=== PATIENT | male | born 1995 | race Caucasian/White ===

== ENCOUNTER → 2018-03-23 | Outpatient (CLI) | payer MEDICAID, OTHER ==
[2018-03-23 20:58] LABS: BASO % 0.6 % (0.0-1.0); EOS # 0.3 10^3/uL (0.0-0.50); HEMATOCRIT 42.8 % (42.0-52.0); HEMOGLOBIN 14.6 g/dl (13.5-17.5); IMMATURE GRANULOCYTE % 0.3 % (0-3.0); LYMPH # 1.8 10^3/uL (1.5-6.5); LYMPH % 25.7 % (24.0-44.0); MEAN CORPUSCULAR HEMOGLOBIN 30.7 pg (27.0-33.0); MEAN CORPUSCULAR HGB CONC 34.1 g/dl (32.0-36.5); MEAN CORPUSCULAR VOLUME 89.9 fl (80.0-96.0); MONO # 0.6 10^3/uL (0.0-0.8); NEUTROPHILS # 4.3 10^3/uL (1.8-7.7); NEUTROPHILS % 61.4 % (36.0-66.0); PLATELET COUNT, AUTOMATED 157 10^3/uL (150-450); RED BLOOD COUNT 4.76 10^6/uL (4.30-6.10); RED CELL DISTRIBUTION WIDTH 13.1 % (11.5-14.5)
[2018-03-23 21:05] LABS: ALBUMIN/GLOBULIN RATIO 1.25 (1.00-1.93); ALKALINE PHOSPHATASE 96 U/L (45-117); ALT/SGPT 28 U/L (12-78); ANION GAP 4 MEQ/L (8-16); AST/SGOT 22 U/L (7-37); BILIRUBIN,TOTAL 0.3 MG/DL (0.2-1.0); BLOOD UREA NITROGEN 16 MG/DL (7-18); CALCIUM LEVEL 8.7 MG/DL (8.5-10.1); CARBON DIOXIDE LEVEL 30 MEQ/L (21-32); CHLORIDE LEVEL 108 MEQ/L (98-107); CREATININE FOR GFR 1.04 MG/DL (0.70-1.30); GLOMERULAR FILTRATION RATE > 60.0 (>60); GLUCOSE, FASTING 86 MG/DL (70-100); POTASSIUM SERUM 4.6 MEQ/L (3.5-5.1); SODIUM LEVEL 142 MEQ/L (136-145); TOTAL PROTEIN 7.2 GM/DL (6.4-8.2)
== END ==
LOC: M RAD 17:37
DX: M25.551 Pain in right hip (principal); R10.11 Right upper quadrant pain
CPT/HCPCS: 73502

== ENCOUNTER → 2018-03-30 | Outpatient (CLI) | payer OTHER, MEDICAID | LOC: M RAD 08:23 | DX: R10.11 Right upper quadrant pain (principal) | CPT/HCPCS: 76705 ==

== ENCOUNTER → 2018-08-19 | Outpatient (REF) | payer OTHER ==
[~2018-08-19] MED LIST: ZOLO50TA PO
[2018-08-19 16:04] LABS: HEMOGLOBIN 15.8 g/dl (13.5-17.5); MEAN CORPUSCULAR HEMOGLOBIN 30.6 pg (27.0-33.0); MEAN CORPUSCULAR HGB CONC 35.1 g/dl (32.0-36.5); PLATELET COUNT, AUTOMATED 190 10^3/uL (150-450); RED BLOOD COUNT 5.17 10^6/uL (4.30-6.10); WHITE BLOOD COUNT 6.7 10^3/uL (4.0-10.0)
[2018-08-19 16:16] LABS: CHOLESTEROL RISK RATIO 3.272 (<5); THYROID STIMULATING HORMONE 1.28 uIU/ML (0.358-3.740); TOTAL 25(OH) VITAMIN D 17.4 NG/ML (30.0-100.0)
== END ==
LOC: M SFHCPLAZ 13:58
PROVIDERS: ATTEND Nurse Practitioner Family
DX: F41.8 Other specified anxiety disorders (principal); Z13.220 Encounter for screening for lipoid disorders

== ENCOUNTER 2018-11-19 08:52 | Emergency (ER) | payer OTHER ==
[~2018-11-19] VITALS: Ht 170.2 cm; Wt 63.6 kg
[2018-11-19 08:52] VITALS: BP 142/88
[2018-11-19] MEDS ORDERED: BUPR1TAB56 (08:59)
[2018-11-19] MEDS ORDERED: MIRT1TAB17 (08:59)
[2018-11-19] MEDS ORDERED: KETOROLAC 30 MG/ML VIAL (J1885) IM ONE (09:30)
[2018-11-19] MEDS ORDERED: KETOROLAC 60 MG/2 ML VIAL (J1885) IM ONE (09:30)
[2018-11-19] MEDS ORDERED: ACETAMINOPHEN 500 MG TAB PO ONE (09:30)
[2018-11-19] MEDS ORDERED: AUGM875T28 PO (09:39)
[2018-11-19] MEDS ORDERED: MAGICMW SSP (09:39)
[2018-11-19] MEDS ORDERED: KETO10TAB PO (09:39)
== END 2018-11-19 09:52 | disposition home or self-care (01) ==
LOC: M ED 08:52
DX: K02.9 Dental caries, unspecified (principal); K08.89 Other specified disorders of teeth and supporting structures; F17.210 Nicotine dependence, cigarettes, uncomplicated; Z79.899 Other long term (current) drug therapy
CPT/HCPCS: 96372; 99283; J1885

== ENCOUNTER 2019-05-05 21:25 | Emergency (ER) | payer OTHER ==
[~2019-05-05] VITALS: Ht 170.2 cm; Wt 72.7 kg
[~2019-05-05 21:25] MED LIST changes: +AUGM875T28 PO; +BUPR1TAB56; +KETO10TAB PO; +MAGICMW SSP; +MIRT1TAB17
--- NOTE | 2019-05-05 22:58 | REPVR ---
PROCEDURE INFORMATION: Exam: US Scrotum Exam date and time: 05/05/2019 10:50 PM Clinical history: 23 years old, male; Scrotum pain; Additional info: Pain in left groin with no injury TECHNIQUE: Imaging protocol: Real-time ultrasound of the scrotum and contents with color Doppler and image documentation. COMPARISON: No relevant prior studies available. FINDINGS: Right Testicle: Normal. Measures 4 x 1.6 x 2.6 cm No mass. No torsion. Normal vascular flow. Resistive index 0.54 Left Testicle: Normal. Measures 4.5 x 2.5 x 3.2 cm No mass. No torsion. Normal vascular flow. Resistive index 0.47. Epididymides: Normal. Scrotum: Normal. IMPRESSION: Normal scrotal ultrasound. Electronically signed by: Richie Watts On 05/05/2019 22:57:30 PM
[2019-05-05] MEDS ORDERED: IBUP80TA PO (23:25)
[2019-05-05] MEDS ORDERED: LEVA1TAB2 PO (23:25)
[2019-05-05] MEDS ORDERED: cefTRIAXone SOD 250 MG VIAL (J0696) IM ONE (23:30)
[2019-05-05] MEDS ORDERED: LIDOCAINE 1% SDV 5 ML VIAL DILUENT ONE (23:30)
[2019-05-05] MEDS ORDERED: IBUPROFEN 800 MG TAB PO ONE (23:30)
[2019-05-05] MEDS ORDERED: LevoFLOXacin 500 MG TABLET PO ONE (23:30)
[2019-05-05 23:48] VITALS: BP 109/69
[2019-05-06 00:03] LABS: CHLAMYDIA DNA AMPLIFICATION NEGATIVE (NEGATIVE); GC DNA AMPLIFICATION NEGATIVE (NEGATIVE)
== END 2019-05-05 23:50 | disposition home or self-care (01) ==
LOC: M ED 21:25
DX: N45.1 Epididymitis (principal); M54.9 Dorsalgia, unspecified; F17.210 Nicotine dependence, cigarettes, uncomplicated; Z79.899 Other long term (current) drug therapy
CPT/HCPCS: 76870; 81001; 87491; 87591; 93976; 96372; 99283; J0696

== ENCOUNTER 2020-03-31 15:59 | Emergency (ER) | payer OTHER ==
[~2020-03-31] VITALS: Ht 170.2 cm; Wt 85.5 kg
[~2020-03-31 15:59] MED LIST changes: +IBUP80TA PO; +LEVA1TAB2 PO
[2020-03-31] MEDS ORDERED: NAPR-837 PO (17:09)
[2020-03-31] MEDS ORDERED: ASPE4PAD TOP (17:09)
[2020-03-31] MEDS ORDERED: ROBA750T4 PO (17:09)
[2020-03-31 17:14] VITALS: BP 127/82
[2020-03-31] MEDS ORDERED: LIDOCAINE 5% (LIDODERM) PATCH TD ONE (17:15)
[2020-03-31] MEDS ORDERED: methocarbamoL 750 MG TAB PO ONE (17:15)
[2020-03-31] MEDS ORDERED: KETOROLAC 60MG 2ML VIAL IM ONE (17:30)
[2020-03-31] MEDS ORDERED: **NOTE PATIENT COMMENT** MISC XX SCH (21:00)
== END 2020-03-31 17:55 | disposition home or self-care (01) ==
LOC: M ED 15:59
DX: S39.012A Strain of muscle, fascia and tendon of lower back, initial encounter (principal); X50.0XXA Overexertion from strenuous movement or load, initial encounter; Y92.9 Unspecified place or not applicable; Y93.89 Activity, other specified; Y99.9 Unspecified external cause status
CPT/HCPCS: 96372; 99283; J1885

== ENCOUNTER 2020-06-02 00:01 | Inpatient (IN) | payer MEDICAID, OTHER ==
[~2020-06-02] VITALS: Ht 170.2 cm; Wt 86.4 kg
[~2020-06-02 00:01] MED LIST changes: +ASPE4PAD TOP; +NAPR-837 PO; +ROBA750T4 PO
[2020-06-02 01:02] LABS: AMPHETAMINES LEVEL URINE NEGATIVE (NEGATIVE); BARBITURATES URINE NEGATIVE (NEGATIVE); BENZODIAZEPINES URINE NEGATIVE (NEGATIVE); CANNABINOIDS URINE POSITIVE (NEGATIVE); COCAINE METABOLITE URINE NEGATIVE (NEGATIVE); METHADONE URINE NEGATIVE (NEGATIVE); OPIATES URINE NEGATIVE (NEGATIVE); PHENCYCLIDINE URINE NEGATIVE (NEGATIVE)
[2020-06-02 01:12] LABS: ACETAMINOPHEN LEVEL < 2.0 UG/ML (10.0-30.0); ALT/SGPT 22 U/L (12-78); BILIRUBIN,DIRECT 0.1 MG/DL (0.0-0.2); BILIRUBIN,TOTAL 0.5 MG/DL (0.2-1.0); BLOOD UREA NITROGEN 21 MG/DL (7-18); CALCIUM LEVEL 9.3 MG/DL (8.5-10.1); CARBON DIOXIDE LEVEL 24 MEQ/L (21-32); CHLORIDE LEVEL 107 MEQ/L (98-107); CREATININE FOR GFR 0.97 MG/DL (0.70-1.30); ETHYL ALCOHOL (ETHANOL) < 0.003 % (0.000-0.010); GLOMERULAR FILTRATION RATE > 60.0 (>60); GLUCOSE, FASTING 90 MG/DL (70-100); POTASSIUM SERUM 3.7 MEQ/L (3.5-5.1); SALICYLATE LEVEL < 1.7 MG/DL (5.0-30.0); SODIUM LEVEL 139 MEQ/L (136-145); TOTAL PROTEIN 8.6 GM/DL (6.4-8.2)
[2020-06-02 01:35] LABS: HEMATOCRIT 47.5 % (42.0-52.0); HEMOGLOBIN 16.1 g/dl (13.5-17.5); MEAN CORPUSCULAR HEMOGLOBIN 29.5 pg (27.0-33.0); MEAN CORPUSCULAR HGB CONC 33.9 g/dl (32.0-36.5); PLATELET COUNT, AUTOMATED 209 10^3/uL (150-450); RED BLOOD COUNT 5.46 10^6/uL (4.30-6.10); WHITE BLOOD COUNT 10.4 10^3/uL (4.0-10.0)
--- NOTE | 2020-06-02 08:04 | ECGEPIP ---
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
[2020-06-02] MEDS ORDERED: SERT-138 PO (08:46)
[2020-06-02] MEDS ORDERED: SERTRALINE HCL 50 MG TAB PO ONE (09:30)
[2020-06-02] MEDS ORDERED: methocarbamoL 750 MG TAB PO ONE (09:30)
[2020-06-02] MEDS ORDERED: IBUP80TA PO (13:29)
[2020-06-02] MEDS ORDERED: METH750T2 PO (13:29)
[2020-06-03] MEDS ORDERED: SERTRALINE HCL 50 MG TAB PO ONE (08:00)
[2020-06-03] MEDS ORDERED: IBUPROFEN 800 MG TAB PO PRN (12:15)
[2020-06-03] MEDS ORDERED: methocarbamoL 750 MG TAB PO PRN (12:15)
[2020-06-03] MEDS ORDERED: MOM 30ML SUSPENSION UDC PO PRN (12:15)
[2020-06-03] MEDS ORDERED: ACETAMINOPHEN TAB 650MG DOSE (2X325MG) PO PRN (12:15)
[2020-06-03] MEDS ORDERED: MAALOX 30 ML SUSP *UDC PO PRN (12:15)
[2020-06-03] MEDS ORDERED: traZODone 50 MG TAB PO PRN (12:15)
[2020-06-04 07:02] VITALS: BP 137/87
[2020-06-04] MEDS ORDERED: INFLUENZA QUADRIVALENT PF VACCINE 0.5ML SYRINGE IM ONE (09:00)
[2020-06-04] MEDS ORDERED: SERTRALINE 100 MG TAB PO SCH (09:00)
[2020-06-04] MEDS ORDERED: SERT-141 PO (10:02)
--- NOTE | 2020-06-04 16:28 | MHHPEPDOC ---
General Legal Status: 9.39 Chief Complaint Patient is a 24 year old Single, Unemployed, Domiciled, Male who took an overdose of 3 Ibuprofen 800 mg tablets after a fight with his boyfriend. History of Present Illness HISTORY OF THE PRESENT ILLNESS: Patient is a 24 -year-old , male, who got into an argument with his boyfriend because his boyfriend wanted to go to bed, and patient wanted to watch a movie. During the fight the boyfriend terminated their engagement and pt made a suicidal statement and took 4- ibuprofen 800 mg. Patient is prescribed 800 mg TID. Psychiatric Review of Systems Depression (2 or more weeks): insomnia/hypersomnia, feelings of worthlesness, suicidal thoughts Vee (4 or more days of): denies Psychosis: denies PTSD: denies Anxiety: situational anxiety, stressor related anxiety, panic attacks Past Psychiatric History Previous Psychiatric Diagnosis: Major Depression, Anxiety Previous Psychiatric Admissions: Was admitted to [facility] 5 years ago Suicide Attempts: No past gestures, attempts Psychiatric Follow-up: Use to go to [facility] and wants to go to [facility] Psychiatric medications: Zoloft, has not been taking for the past 2 weeks. Past Medical History Medical Problems Chronic Back Pain (Feels that it is Scoliosis) Chronic Right Knee Pain (Dislocated when he was 17 yo) Head Injury: No Seizures: No Hospitalizations: Yes Surgeries: No Family Medical/Psychiatric HX Medical Problems Father and Brother - History of Cannabis Psychiatric Disorders: No Addiction: Yes Suicide Attemps/Completions: Yes (Father's Brother committed suicide, shot him self because he was facing life in assisted. Mother's side "Someone jumped off a bridge and into the [place] - maybe my grandmother's brother") Addiction History nicotine (Quit 2 months ago, smoked 2 cigarettes a day), other (Cannabis, smokes once or twice a month) Social History Childhood: Born in [place] to both Parents, they when he was 7 years old. During childbirth they both had difficulty "My mom and I were miracles because we both almost " Both parents alive. Has an Older Brother. Abuse/Trauma: None, has never been a victim of crime Current Living Situation: Living in own apartment, SSI income Education: Did not graduate high school, went to the 11th grade. 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 ) Affect: flat Thought Process: logical/linear Thought Content (Delusions): none reported, denies SI, HI, AVH Thought Content (Other): none reported Thought Content (Aggressive): none reported Perception (Hallucinations): none reported Perception (Other): none reported Cognition (Impairment of): none reported Cognition(Intelligence Est.): average Oriented: Awake, Alert, Oriented times three Insight: fair Judgment: Fair Psychosis: Denies Diagnoses Major Depressive Disorder, Recurrent, Mild A-FIB/CHADSVASC A-FIB History Current/History of A-Fib/PAF?: No Assessment Patient reporting that he got into an argument with his boyfriend and made a suicidal statement after his boyfriend terminated their engagement He took 4 - 800 mg of Ibuprofen which he is prescribed 800 mg TID. He reports that he did not take more than 4 that day. States that he has been in the ER since Wednesday and that he is no longer feeling suicidal. If he is discharged today he will go to his father's home. Patient currently denying suicidal ideation, denies depression, denies any other abnormal psychotic symptoms and not observed with any He will be discharged today. Patient has not been taking Zoloft and I will restart his Zoloft at 50 mg Initial Treatment Plan 1. Patient was admitted on a [9.39] status. 2. Complete history was obtained. 3. With patients permission, family will be contacted and database will be expanded. 4. Patients medication regimen will be reviewed and changed accordingly. 5. Patient will be provided with protected environment. 6. Patient will be treated with individual, group, and milieu therapies. 7. Patient will receive supportive psych-education. 8. Discharge planning will commence immediately. 9. Outpatient follow-up treatment will be strongly recommended. 10. The initial treatment plan will focus initially on: * Depression. * Risk for suicide. ESTIMATED LENGTH OF STAY: 1-3 DAYS. TIME SPENT COUNSELING AND COORDINATING INITIAL CARE: 50 minutes. Vital Signs Vital Signs Date Time Temp Pulse Resp B/P (MAP) Pulse Ox O2 Delivery O2 Flow Rate FiO2 06/04/20 07:02 97.5 97 20 137/87 (104) Room Air 06/03/20 13:34 97 Medications Scheduled Sertraline Hcl (Sertraline HCl) 50 Mg Tablet, 50 MG PO DAILY for Depression Scheduled PRN Ibuprofen (Ibuprofen) 800 Mg Tablet, 800 MG PO TID PRN for PAIN, (Reported) Methocarbamol (Methocarbamol) 750 Mg Tablet, 750 MG PO TID PRN for MUSCLE SPASMS, (Reported) Allergies Coded Allergies: No Known Allergies (Unverified , 12/03/14) KARON RUFFIN NP Jun 04, 2020 09:51
--- NOTE | 2020-06-04 16:40 | MHDSPDOC ---
[facility] Discharge Summary Discharge Summary DATE OF ADMISSION: Jun 03, 2020 at 13:50 DATE OF DISCHARGE: Jun 04, 2020 at 12:54 DISCHARGE DIAGNOSES: Major Depressive Disorder, Recurrent, Mild REASON FOR ADMISSION: Patient is a 24 year old Single, Unemployed, Domiciled, Male who took an overdose of 3 Ibuprofen 800 mg tablets after a fight with his boyfriend. CONSULTANTS INVOLVED: TREATMENT AND PROGRESS ON THE UNIT : Patient was admitted to the [facility] on a 9.39 legal status he was afforded the following treatment modalities: 1) Individual Therapy 2) Group Therapy 3) Medication Management 4) Milieu Therapy 5) Safe Environment HOSPITAL COURSE: Patient was assessed and evaluated today and because patient had been in the ED for two days awaiting a bed, I believe that the crisis is over for this patient. He is not expressing suicidal ideation, planning or intent and given that his suicidal gesture was not lethal I feel that patient is now stable for discharge. Patient was initially evaluated by the ER on 06/02/20. DISCHARGE ASSESSMENT: MENTAL STATUS EXAMINATION ON DISCHARGE: 24 year old Single, Unemployed, Domiciled, Male who took an overdose of 3 Ibuprofen 800 mg tablets after a fight with his boyfriend. He is dressed appropriately. Eye contact is good, he is not psychomotorally slow or agitated. He is calm and cooperative in the interview. Speech: Is normal rate, tone and volume Language skills are intact Thought processes including: linear and goal oriented Thought content: denies depression, suicidal/homicidal ideation, planning or intent. He is not anxious, denies abnormal psychotic symptoms Abstract reasoning, and computation: Fair Description of associations: None notes, patient denies Description of abnormal or psychotic thoughts: None notes, patient denies Judgment: fair Insight: fair Orientation: alert and oriented to person, place, time and situation Recent and remote memory: intact Attention span and concentration: fair Language: expansive Fund of knowledge: good Mood: "anxious to go home Affect: flat MEDICATIONS ON DISCHARGE: Continue home medications, Patient Zoloft was restarted at 50 mg due to his poor compliance. He states that he has not taken his Zoloft is several weeks. Rx was electronically prescribed to [facility] in [place] where his father lives PLAN/FOLLOWUP ARRANGEMENTS: [facility], see discharge planners notes The amount of time spent in the coordination of care for this patient was approximately 10 minutes. Vital Signs/I&Os Vital Signs Date Time Temp Pulse Resp B/P (MAP) Pulse Ox O2 Delivery O2 Flow Rate FiO2 06/04/20 07:02 97.5 97 20 137/87 (104) Room Air 06/03/20 13:34 97 Laboratory Data Microbiology Microbiology 06/02/20 Respiratory Virus Panel (PCR) (RIDDHI) - Final, Complete Medications Scheduled Sertraline Hcl (Sertraline HCl) 50 Mg Tablet, 50 MG PO DAILY for Depression for 30 Days, #7 Scheduled PRN Ibuprofen (Ibuprofen) 800 Mg Tablet, 800 MG PO TID PRN for PAIN, (Reported) Methocarbamol (Methocarbamol) 750 Mg Tablet, 750 MG PO TID PRN for MUSCLE SPASMS, (Reported) Allergies Coded Allergies: No Known Allergies (Unverified , 12/03/14) KARON RUFFIN NP Jun 04, 2020 16:31
== END 2020-06-04 12:54 | disposition home or self-care (01) | DRG 751 ==
LOC: M ED 00:01 → M PSY 06-03 13:50
PROVIDERS: ADMIT Psychiatry & Neurology Addiction Medicine; ATTEND Psychiatry & Neurology Psychiatry
DX: F33.0 Major depressive disorder, recurrent, mild (principal); T39.312A Poisoning by propionic acid derivatives, intentional self-harm, initial encounter; Z79.899 Other long term (current) drug therapy; Z63.0 Problems in relationship with spouse or partner

== ENCOUNTER → 2020-06-20 | Outpatient (REF) | payer MEDICAID ==
[~2020-06-20] MED LIST changes: +METH750T2 PO; +SERT-138 PO; +SERT-141 PO
== END ==
LOC: M LAB REF 16:42
PROVIDERS: ATTEND Physician Assistant
DX: R42 Dizziness and giddiness (principal)

== ENCOUNTER 2020-06-21 00:46 | Emergency (ER) | payer MEDICAID ==
[~2020-06-21] VITALS: Ht 170.2 cm; Wt 89.1 kg
[2020-06-21 01:08] VITALS: BP 137/78
== END 2020-06-21 02:32 | disposition left against medical advice (07) ==
LOC: M ED 00:46
DX: Z53.21 Procedure and treatment not carried out due to patient leaving prior to being seen by health care provider (principal)

== ENCOUNTER 2020-08-16 09:59 | Emergency (ER) | payer MEDICAID ==
[~2020-08-16] VITALS: Ht 170.2 cm; Wt 91.8 kg
[~2020-08-16 09:59] MED LIST changes: +METH-1165 PO; -METH750T2 PO
--- OUTSIDE RECORDS SUMMARY | 2020-08-16 10:04 | CCD ---
Author Author Terry Chavez Organization Unknown Address [address] [place] [address] Phone Care Team Providers Care Rolling Mill Plugger Name Role Phone Michelle Chavez PCP Allergies, Adverse Reactions, Alerts No Data in Section Problem List Concept Problem Description Status Start Date Created Date Resolv ed Date Snomed Code F33.1 Major Depressive Disorder, Recurrent episode, Moderate Active 07/03/2020 Z72.0 Tobacco Use Disorder, Mild Active 07/03/2020 F12.10 Cannabis Use Disorder, Mild Active 07/03/2020 Medications No Data in Section Social History Social History Element Description Concept Effective Date Smoking Status Current every day smoker [id number] Immunizations No Data in Section Vital Signs No Data in Section Procedures Date Concept Id Description Targeted Site Concept Targeted Site Concept Type 07/03/2020 84261 Psychiatric Diagnostic Evaluation with Medical Services CPT Patient has no history of implantable de vices Encounters Encounter Start Date End Date Encounter Type Description Diagnosis Di agnosis Desc Location Author First Name Author Last Name Npid Taxonomy Cod e Taxonomy Desc Phone Number Location Addr1 Location Addr2 Location [facility] Location [facility] Location [facility] [id number] 07/03/2020 07/03/2020 60754 Psychiatric Eleanor gnostic Evaluation with Medical Services F33.1 Major depressive disorder, recurrent, mo derate [facility] Kathy Martinez [id number] N glenys Practitioner [id number] [address] [facility] [address] [facility] [address] Plan of Treatment No Data in Section Lab Results No Data in Section Instructions No Data in Section Insurance Providers Insurance Id Policy Effective Date Policy Thru Date Company N melody [id number] 2019 [employer] Managed M' caid
--- OUTSIDE RECORDS SUMMARY | 2020-08-16 10:04 | CCD ---
Author Organization Unknown Address [address] [place] [address] Phone [phone] Care Team Providers Care Lead Cargo Mover Name Role Phone Tala Baltazar Unavailable Unavailable Allergies Code Code System Name Reaction Severity Status Onset NKDA Medications Name Status Start Date Stop Date Bactrim DS 800 mg-160 mg tablet Take 1 tablet every 12 hours by oral route for 10 days. Active Not available bupropion HCl XL 150 mg 24 hr tablet, extended release Completed 06/18/2020 cetirizine 10 mg tablet Completed 06/18/20 fluconazole 150 mg tablet 1 tablet once a day for 14 days Active Not mauri ilable ibuprofen 800 mg tablet Active Not avai lable methocarbamol 750 mg tablet TAKE ONE TABLET BY MOUTH THREE TIMES A DAY Completed 06/18/2020 naproxen 500 mg tablet TAKE ONE TABLET BY MOUTH TWICE A DAY WITH FOOD Completed 06/18/2020 sertraline 100 mg tablet TAKE ONE AND ONE HALF TABLET BY MOUTH ONCE A DAY Completed 06/18/2020 sertraline 50 mg tablet TAKE ONE TABLET BY MOUTH EVERY DAY FOR DEPRESSION Completed 06/18/2020 Problems Name Status Onset Date Source Overweight Active 03/23/2018 History Body Mass Index 25-29 - Overweight Active 03/23/2018 History Mixed Anxiety and Depressive Disorder Active 03/23/2018 History Tobacco User Active 03/23/2018 History Developmental Academic Disorder Active 03/23/2018 History Right Upper Quadrant Pain Active 03/23/2018 Histor y Pain in Right Hip Joint Active 03/23/2018 History Influenza Vaccine Needed Active 05/05/2018 History Dental Caries on Smooth Surface Penetrating into Pulp Active 11/22/2018 History Epididymitis Active 05/30/2019 History Epigastric Pain Active 05/30/[address] Concept Unknown 05/30/2019 History Decreased Hearing Active 06/14/2019 History Procedures Date Name Performed by Eye Surgery Procedure Notes: Pt unsure of date, was in childhood Information not available Notes: eye surgery as child Results Lab Results None recorded. Past Encounters 06/18/2020 Low Back Pain; Tinea Corporis; Pilonidal Cyst; Moderate Recurrent Major Depression Liz Rodrigez PA-C: [address] [place] [address], Ph. Social History Tobacco Smoking Status Former Smoker (1 PPW) Notes: former Vaccine List Vaccine Type influenza, seasonal, injectable 05/05/20180.5 mL Plan of Care Reminders Provider Appointments None recorded. Lab None recorded. Referral None recorded. Procedures None recorded. Surgeries None recorded. Imaging None recorded. Vitals 06/18/2020 10:40AM HOSPITAL DISCHARGE Height Weight BMI Blood Pressure 67 in 197 lbs 30.9 kg/m2 126/87 mm[Hg] 06/14/2019 Height Weight Blood Pressure 68 in 194 lbs 113/73 mm[Hg] 05/30/2019 Height Weight Blood Pressure 68 in 187 lbs 9.6 oz 135/91 mm[Hg]
--- OUTSIDE RECORDS SUMMARY | 2020-08-16 10:04 | CCD ---
Author Author Terry Montgomery Mesha Organization Unknown Address [address] [place] [address] Phone Care Team Providers Care Physical Therapist Name Role Phone Mesha Montgomery PCP Allergies, Adverse Reactions, Alerts No Data in Section Problem List Concept Problem Description Status Start Date Created Date Resolv ed Date Snomed Code F33.1 Major Depressive Disorder, Recurrent episode, Moderate Active 06/24/2020 Z72.0 Tobacco Use Disorder, Mild Active 06/24/2020 F12.10 Cannabis Use Disorder, Mild Active 06/24/2020 Medications No Data in Section Social History Social History Element Description Concept Effective Date Smoking Status Current every day smoker [id number] Immunizations No Data in Section Vital Signs No Data in Section Procedures Date Concept Id Description Targeted Site Concept Targeted Site Concept Type 06/24/2020 72304 Psychiatric Diagnostic Evaluation (Non-Medical) CPT Patient has no history of implantable de vices Encounters Encounter Start Date End Date Encounter Type Description Diagnosis Di agnosis Desc Location Author First Name Author Last Name Npid Taxonomy Cod e Taxonomy Desc Phone Number Location Addr1 Location Addr2 Location [facility] Location [facility] Location [facility] [id number] 06/24/2020 06/24/2020 21621 Psychiatric Eleanor gnostic Evaluation (Non-Medical) F33.1 Major depressive disorder, recurrent, mo derate [facility] Ulises Zimmer [id number] Mental He alth [phone] [address] [facility] [address] [facility] [address] Plan of Treatment No Data in Section Lab Results No Data in Section Instructions No Data in Section Insurance Providers Insurance Id Policy Effective Date Policy Thru Date Company N melody [id number] 2019 [employer] Managed M' caid
--- OUTSIDE RECORDS SUMMARY | 2020-08-16 10:04 | CCD ---
Author Author Terry Howard Organization Unknown Address [address] [place] [address] Phone Care Team Providers Care Senior Bioinformatics Scientist Name Role Phone Frances Howard PCP Allergies, Adverse Reactions, Alerts No Data in Section Problem List Concept Problem Description Status Start Date Created Date Resolv ed Date Snomed Code F33.1 Major Depressive Disorder, Recurrent episode, Moderate Active 06/12/2020 Z72.0 Tobacco Use Disorder, Mild Active 06/12/2020 F12.10 Cannabis Use Disorder, Mild Active 06/12/2020 Medications No Data in Section Social History Social History Element Description Concept Effective Date Smoking Status Current every day smoker [id number] Immunizations No Data in Section Vital Signs No Data in Section Procedures Date Concept Id Description Targeted Site Concept Targeted Site Concept Type 06/10/2020 88347 Brief Individual Psychotherapy - 30 min CPT Patient has no history of implantable de vices Encounters Encounter Start Date End Date Encounter Type Description Diagnosis Di agnosis Desc Location Author First Name Author Last Name Npid Taxonomy Cod e Taxonomy Desc Phone Number Location Addr1 Location Addr2 Location [facility] Location [facility] Location Zip [id number] 06/10/2020 06/10/2020 52502 Brief Individual Psychoth erapy - 30 min F33.1 Major depressive disorder, recurrent, moderate Communi ty [facility] Frances [id number] Button Cutting Machine Operator [phone] [address] [facility] [address] [facility] [address] Plan of Treatment No Data in Section Lab Results No Data in Section Instructions No Data in Section Insurance Providers Insurance Id Policy Effective Date Policy Thru Date Company N melody [id number] 2019 [employer] Managed MJaziel gandhi
--- OUTSIDE RECORDS SUMMARY | 2020-08-16 10:05 | CCD ---
Author Author [facility] Organization [facility] Address Unknown Phone Unavailable Care Team Providers Care Vacuum Tester Cans Name Role Phone Davido M Ilz PA Unavailable Unavailable Scordo, M Liz PA Unavailable Unavailable Scordo, M Liz PA Unavailable Unavailable Scordo, M Liz PA Unavailable Unavailable Scordo, M Liz PA Unavailable Unavailable Scordo, M Liz PA Unavailable Unavailable Scordo, M Liz PA Unavailable Unavailable Scordo, M Liz PA Unavailable Unavailable Scordo, M Liz PA Unavailable Unavailable Scordo, M Liz PA Unavailable Unavailable Scordo, M Liz PA Unavailable Unavailable Scordo, M Liz PA Unavailable Unavailable Scordo, M Liz PA Unavailable Unavailable Scordo, M Liz PA Unavailable Unavailable Scordo, M Liz PA Unavailable Unavailable Scordo, M Liz PA Unavailable Unavailable Scordo, M Liz PA Unavailable Unavailable Scordo, M Liz PA Unavailable Unavailable Scordo, M Liz PA Unavailable Unavailable Scordo, M Liz PA Unavailable Unavailable Scordo, M Liz PA Unavailable Unavailable Scordo, M Liz PA Unavailable Unavailable Scordo, M Liz PA Unavailable Unavailable Scordo, M Liz PA Unavailable Unavailable Scordo, M Liz PA Unavailable Unavailable Scordo, M Liz PA Unavailable Unavailable Scordo, M Liz PA Unavailable Unavailable Scordo, M Liz PA Unavailable Unavailable Scordo, M Liz PA Unavailable Unavailable Scordo, M Liz PA Unavailable Unavailable Scordo, M Liz PA Unavailable Unavailable Scordo, M Liz PA Unavailable Unavailable Scordo, M Liz PA Unavailable Unavailable Scordo, M Liz PA Unavailable Unavailable Scordo, M Liz PA Unavailable Unavailable Scordo, M Liz PA Unavailable Unavailable Scordo, M Liz PA Unavailable Unavailable Scordo, M Liz PA Unavailable Unavailable Scordo, M Liz PA Unavailable Unavailable Scordo, M Liz PA Unavailable Unavailable Kim Richards Unavailable Frances Howard Unavailable Dariana Villatoro Unavailable [facility], [facility] Unavailable Unavailable MACQUEEN, DANA PATIENT SERVICE COORDINATOR Unavailable Unavailable MACQUEEN, DANA PATIENT SERVICE COORDINATOR Unavailable Unavailable MACQUEEN, DANA PATIENT SERVICE COORDINATOR Unavailable Unavailable MACQUEEN, DANA PATIENT SERVICE COORDINATOR Unavailable Unavailable MACQUEEN, DANA PATIENT SERVICE COORDINATOR Unavailable Unavailable MACQUEEN, DANA PATIENT SERVICE COORDINATOR Unavailable Unavailable MACQUEEN, DANA PATIENT SERVICE COORDINATOR Unavailable Unavailable MACQUEEN, DANA PATIENT SERVICE COORDINATOR Unavailable Unavailable MACQUEEN, DANA PATIENT SERVICE COORDINATOR Unavailable Unavailable MACQUEEN, DANA PATIENT SERVICE COORDINATOR Unavailable Unavailable MACQUEEN, DANA PATIENT SERVICE COORDINATOR Unavailable Unavailable SYSTEM, NOT IN PROVIDER Unavailable Unavailable Ulises, Mesha Unavailable Susanne Romo PATIENT SERVICE COORDINATOR Unavailable Unavailable EGORHO, F MARISELA FPMHNP Unavailable Unavailable EGORHO, F MARISELA FPMHNP Unavailable Unavailable EGORHO, F MARISELA FPMHNP Unavailable Unavailable EGORHO, F MARISELA FPMHNP Unavailable Unavailable EGORHO, F MARISELA FPMHNP Unavailable Unavailable EGORHO, F MARISELA FPMHNP Unavailable Unavailable Re-disclosure Warning The records that you are about to access may contain information from federally-assisted alcohol or drug abuse programs. If such information is present, then the following federally mandated warning applies: This information has been disclosed to you from records protected by federal confidentiality rules (42 CFR part 2). The federal rules prohibit you from making any further disclosure of this information unless further disclosure is expressly permitted by the written consent of the person to whom it pertains or as otherwise permitted by 42 CFR part 2. A general authorization for the release of medical or other information is NOT sufficient for this purpose. The Federal rules restrict any use of the information to criminally investigate or prosecute any alcohol or drug abuse patient.The records that you are about to access may contain highly sensitive health information, the redisclosure of which is protected by Article 27-F of the [facility] Public Health law. If you continue you may have access to information: Regarding HIV / AIDS; Provided by facilities licensed or operated by the [facility] Office of Mental Health; or Provided by the [facility] Office for People With Developmental Disabilities. If such information is present, then the following [facility] mandated warning applies: This information has been disclosed to you from confidential records which are protected by state law. State law prohibits you from making any further disclosure of this information without the specific written consent of the person to whom it pertains, or as otherwise permitted by law. Any unauthorized further disclosure in violation of state law may result in a fine or snf sentence or both. A general authorization for the release of medical or other information is NOT sufficient authorization for further disc losure. Family History Family Member Name Family Member Gender Family Member Status Date o f Status Description Data Source(s) Unknown Male Problem MEDENT ([facility]) Unknown Female Problem MEDENT ([facility]) Unknown Female Problem MED[facility] ([facility]) Encounters Encounter Providers Location Date Indications Data Source(s ) Psychiatric Diagnostic Evaluation with Medical Service s Attender: MARISELA BATEMANVEL [facility] Detention 07/03/2020 11:00:00 AM EST - 07/03/2020 11:00:00 AM EST [facility] ([facility]) Attender: MARISELA BATEMANVEL 07/03/2020 12:00: 00 AM EST [facility] ([facility]) Psychiatric Diagnostic Evaluation (Non-Medical) Attender: Sparkle Montgomery [facility] 06/24/2020 02:00:00 AM EST - 06/24/2020 02:00:00 AM EST [facility] ([facility]) Attender: Mesha Reeseus 06/24/2020 12:00:00 AM EST [facility] ([facility]) Liz Rodrigez PA-C: [address] [place] [phone], Ph. Attender: Liz [facility] Medical 06/18/2020 12:00:00 AM EST [facility] ([facility]) Brief Individual Psychotherapy - 30 min Attender: Frances lopez [facility] 06/10/2020 11:15:00 AM EST - 06/10/2020 11:15:00 AM EST [facility] ([facility]) Extended Individual Psychotherapy - 45 min Attender: Cuca Howard [facility] 06/10/2020 11:00:00 AM EST - 06/10/2020 11:00:00 AM EST [facility] ([facility]) Attender: Frances Howard 06/10/2020 12:00:00 AM EST [facility] ([facility]) Attender: Frances Howard 06/10/2020 12:00:00 AM EST [facility] ([facility]) [facility]: [facility] 10[facility]:[address] [facility] Outpatient Referrer: PROVIDER SYSTEM [id number] 06/03/2020 10:55:00 AM EST [facility] SI [facility]: [facility] 03:33:[address] [facility] 03:32:[address] [facility] 02:44:[address] [facility]: [facility] 02:44:[address] [facility] Outpatient Attender: ROSANA SAMSON [facility] 04/15/2020 01:30:[address] [facility] Outpatient Attender: [facility]ANA [facility] 03/28/2020 12:02:[address] [facility] Outpatient Attender: ROSANA [facility] 03/27/2020 12:55:00 PM ED T [facility] Outpatient Attender: ROSANA [facility] 03/27/2020 11:59:[address] [facility] Outpatient Attender: ROSANA [facility] 02/28/2020 10:11:[address] [facility] Outpatient Attender: Keyon Romo NP [facility] 01/25/2020 02:00:00 AM EDT - 01/25/2020 02:00:00 AM EDT [facility] ([facility]) Attender: Keyon Romo NP 01/25/2020 12:00:00 AM EDT [facility] ([facility]) [id number]"Psychotherapy [facility] 03:00:00 AM EDT - 01/23/2020 03:00:00 AM EDT [facility] ([facility]) Attender: Kim Richards 01/23/2020 12:00:00 AM EDT [facility] ([facility]) Outpatient Attender: ROSANA [facility] 01/11/2020 02:18:[address] [facility] Outpatient Attender: ROSANA [facility] 01/09/2020 07:55:[address] [facility] [id number]"Psychotherapy [facility] 12/08/2019 03:00:00 AM EDT - 12/08/2019 03:00:00 AM EDT [facility] ([facility]) Attender: Kim Richards 12/08/2019 12:00:00 AM EDT [facility] ([facility]) [id number]"Psychotherapy [facility] 11/21/2019 04:30:00 AM EDT - 11/21/2019 04:30:00 AM EDT [facility] ([facility]) [id number]"Psychotherapy Att[facility]: [facility] 11/21/2019 04:00:00 AM EDT - 11/21/2019 04:00:00 AM EDT [facility] ([facility]) Attender: Kim Richrads 11/21/2019 12:00:00 AM EDT [facility] ([facility]) Attender: Kim Richards 11/21/2019 12:00:00 AM EDT [facility] ([facility]) Outpatient Attender: DANA THOMAS NP [facility] sintia 11/10/2019 01:00:00 AM EDT - 11/10/2019 01:00:00 AM EDT [facility] ([facility]) Attender: DANA THOMAS NP 11/10/2019 12:00:00 AM EDT [facility] ([facility]) TEMPMHCTelemed 30" Psychotherapy Attender: Kim Richards [facility] 11/07/2019 02:00:00 AM EDT - 11/07/2019 02:00:00 AM EDT [facility] ([facility]) Attender: Kim Richards 11/07/2019 12:00:00 AM EDT [facility] ([facility]) Outpatient Attender: ROSANA SAMSONFH FP 10/24/2019 09:01:06 PM ED T [facility] Extended Individual Psychotherapy - 45 min Attender: Jaxon Villatoro [facility] 07/24/2019 02:30:00 AM EST - 07/24/2019 02:30:00 AM EST [facility] ([facility]) Attender: Dariana Villatoro 07/24/2019 12:00:00 A M EST [facility] ([facility]) Brief Individual Psychotherapy - 30 min Attender: Dariana alva [facility] 07/03/2019 01:45:00 AM EST - 07/03/2019 01:45:00 AM EST [facility] ([facility]) Attender: Dariana Villatoro 07/03/2019 12:00:00 A M EST [facility] ([facility]) Functional Status Medications Medication Brand Name Start Date Product Form Dose Route Admi nistrative Instructions Pharmacy Instructions Status Indications Reaction Description Data Source(s) 24 HR Bupropion Hydrochloride 150 MG Extended Release Oral T ablet bupropion HCl 11/10/2019 12:00:00 AM EDT 150 mg by mouth completed [id number] bupropion HCl by mouth [id number] 11/10/2019 02/08/2020 once a day 30 150 mg tablet extended release 24 hr 59165 [id number] Dana AndreMarioreema [id number] Psychiatric/Mental Health [facility] ([facility]) Sertraline 100 MG Oral Tablet sertraline 11/10/2019 12:00:00 AM EDT 100 mg by mouth completed 961700 sertraline by mouth [id number] 201902/08/2020 once a day 30 100 mg tablet 08254 835936 [id number] Danadarin Rodriguez [id number] Psychiatric/Mental Health [facility] ([facility]) 24 HR venlafaxine 75 MG Extended Release Oral Tablet venlafa xine 06/02/2019 12:00:00 AM EDT 75 mg by mouth completed 935951 ve nlafaxine by mouth [id number] 06/02/2019 08/04/2019 every afternoon 30 75 mg tablet ex tended release 24hr 92257 476612 [id number] [place] [id number] Ps ychiatric/Mental Health [facility] ([facility]) 24 HR Bupropion Hydrochloride 150 MG Ext ended Release Oral Tablet bupropion HCl XL 150 mg 24 hr tablet, extended release bupropion HCl XL 150 mg 24 hr tablet, extended release completed 24 HR bupropion hydrochloride 150 MG Extended Release Oral Tablet [facility] ([facility]) cetirizine hydrochloride 10 MG Oral Tablet cetirizine 10 mg tablet cetirizine 10 mg tablet completed cetirizine h ydrochloride 10 MG Oral Tablet [facility] ([facility]) Naproxen 500 MG Oral Tablet naproxen 500 mg tablet TAKE ONE TABLET BY MOUTH TWICE A DAY WITH FOOD naproxen 500 mg tablet TAKE ONE TABLET B Y MOUTH TWICE A DAY WITH FOOD completed naproxen 500 MG Oral Tablet [facility] ([facility]) Methocarbamol 750 MG Oral Tablet methoca rbamol 750 mg tablet TAKE ONE TABLET BY MOUTH THREE TIMES A DAY methocarbamol 750 mg tablet TAKE ONE TAB LET BY MOUTH THREE TIMES A DAY completed meth ocarbamol 750 MG Oral Tablet [facility] ([facility]) Sertraline 50 MG Oral Tablet sertraline 50 mg tablet TAKE ONE TABLET BY MOUTH EVERY DAY FOR DEPRESSION sertraline 50 mg tablet TAKE ONE TABLET BY MOUTH EVERY DAY FOR DEPRESSION completed ser traline 50 MG Oral Tablet [facility] ([facility]) Sertraline 100 MG Oral Tablet sertraline 100 mg tablet TAKE ONE AND ONE HALF TABLET BY MOUTH ONCE A DAY sertraline 100 mg tablet TAKE ONE AND ON E HALF TABLET BY MOUTH ONCE A DAY completed se rtraline 100 MG Oral Tablet [facility] ([facility]) Insurance Providers Payer name Policy type / Coverage type Policy ID Covered green party ID Covered green party's relationship to guadarrama Policy Guadarrama Plan Information [facility] [id number] SP [id number] Managed Care - [facility] Community Plan P [id number] S [id number] Medicaid S [id number] S [id number] [facility] COMMUNITY PLAN [facility] [id number] SP [id number] R U [id number] Self [id number] MEDICAID M [id number] Self [id number] Managed Care - [facility] Community Plan P [id number] S [id number] Managed Care [facility] P [id number] S [id number] Managed Care - [facility] P UNAVAILABLE S UNAVAILABLE [facility]) O [id number] S [id number] [facility] COMMUNITY PLAN [facility] [id number] SP [id number] [facility]-Medicaid [id number] [facility] [id number] [facility] [id number] ANSI-Medicaid [id number] Medicaid P [id number] S [id number] ANSI-Medicaid [id number] ANSI-Medicaid [id number] UMR O [id number] S [id number] MEDICAID M [id number] S [id number] UMR [facility] [id number] FA2 [id number] MEDICAID [id number] SP [id number] Medicaid [place] Medigap Part B [id number] Self [id number] [place] [facility]pr[facility] [id number] Family Dependent [id number] Umr (pr) Commercial [id number] [place] [facility] [id number] Self [id number] [place] (pr) [facility] Part B [id number] Family Dependent [id number] Umr (pr) Commercial [id number] [employer] [id number] SF2 [id number] Medicaid P [id number] S [id number] Self Pay P UNAVAILABLE S UNAVAILA BLE MEDICAID -O/P RAD ONLY [id number] MEDICAID -O/P [id number] 18 [id number] [place]-O/P [id number] 19 [id number] MEDICAID -RECURRING [id number] 1 8 [id number] [place] U [id number] Self [id number] MEDICAID [id number] [place] [id number] 19 [id number] MEDICAID [facility] MC [id number] 18 C [id number] [place] [id number] 19 [id number] MEDICAID -PHYSICIAN [id number] 1 [id number] [place] -PHYSICIAN [id number] 1 [id number] Medicaid Commercial [id number] Self [id number] R [place] Commercial [id number] Family Dependent [id number] Medicaid [facility] Medicaid [id number] Self C [id number] Medicaid [place] Medigap Part B [id number] Self [id number] [place] (pr) Medigap Part B [id number] Family Dependent [id number] Umr (pr) Commercial [id number] Medicaid Commercial [id number] Self [id number] R [place] Commercial [id number] Family Dependent [id number] Medicaid [facility] Medicaid [id number] Self C [id number] Medicaid Commercial [id number] Self [id number] R [place] Commercial [id number] Family Dependent [id number] Medicaid [facility] Medicaid [id number] Self C [id number] [place] Medig[place] Part [place] [id number] Self [id number] [place] (pr) Commercial [id number] Family Dependent 8 [id number] [place] [id number] 19 [id number] Medicaid Commercial [id number] Self [id number] R [place] Commercial [id number] Family Dependent [id number] Medicaid [facility] Medicaid [id number] Self C [id number] MEDICAID -CLINIC [id number] [place]-[facility] [id number] 19 [id number] [place] Medigap Part B [id number] Family Dependent [id number] Medicaid Commercial [id number] Self [id number] R [place] Commercial [id number] Family Dependent [id number] Medicaid [facility] Medicaid [id number] Self C [id number] [place] Commercial [id number] Family Dependent [id number] Medicaid [facility] Medicaid Self [place] Commercial Family Dependent MEDICAID [facility] [id number] 18 [id number] [place] [id number] FA [id number] MEDICAID -O/P EMERGENCY ROOM [id number] Problems, Conditions, and Diagnoses Code Display Name Description Problem Type Effective Dates Data Source(s) F12.10 Cannabis abuse, uncomplicated Cannabis Use Disorder, M ild Condition 07/03/2020 12:00:00 AM EST [facility] ([facility]) Z72.0 Tobacco use Tobacco Use Disorder, Mild Condition 1 09/03/2019 12:00:00 AM EST [facility] ([facility]) F33.1 Major depressive disorder, recurrent, mo derate Major Depressive Disorder, Recurrent episode, Moderate Condition 07/03/2020 12:00:00 AM EST [facility] ([facility]) 782.1 Rash and other nonspecific skin eruption Rash and other nonspecific skin eruption 04/15/2020 02:43:57 PM EDT [facility] M54.89 Other dorsalgia Back pain, acute 04/15/2020 02: 43:57 PM EDT [facility] F42.9 Obsessive-compulsive disorder, unspecifi ed Unspecified Obsessive- Compulsive and Related Disorder Condition 01/25/2020 12:00:00 AM EDT [facility] ([facility]) F41.9 Anxiety disorder, unspecified Unspecified Anxiety Diso rder Condition 01/25/2020 12:00:00 AM EDT [facility] ([facility]) [id number] SNOMED CT Concept SNOMED CT Concept Problem 05/30 12:00:00 AM EDT - 05/29/2020 12:00:00 AM EDT [facility] ([facility]) SI SI Diagnosis 06/03/2020 10:55:00 AM [facility] Surgeries/Procedures Procedure Description Date Indications Data Source(s) Psychiatric Diagnostic Evaluation with Medical Services 07/03/2020 12:00:00 AM EST - 07/03/2020 12:00:00 AM EST [facility] ([facility]) Psychiatric Diagnostic Evaluation with Medical Services 07/03/2020 12:00:00 AM EST [facility] ([facility]) Psychiatric Diagnostic Evaluation (Non-Medical) 06/24/2020 12:00:00 AM EST - 06/24/2020 12:00:00 AM EST [facility] ([facility]) Psychiatric Diagnostic Evaluation (Non-Medical) 2019 12:00:00 AM EST [facility] ([facility]) Brief Individual Psychotherapy - 30 min 06/10/2020 12:00:00 AM EST - 06/10/2020 12:00:00 AM EST [facility] ([facility]) Brief Individual Psychotherapy - 30 min 06/10/2020 12: 00:00 AM EST [facility] ([facility]) Extended Individual Psychotherapy - 45 min 06/10/2020 12:00:00 AM EST - 06/10/2020 12:00:00 AM EST [facility] ([facility]) Extended Individual Psychotherapy - 45 min 0 12:00:00 AM EST [facility] ([facility]) MHC Telemed E/M Lvl 3--Est pt 01/25/2020 12:00:00 AM EDT - 01/25/2020 12:00:00 AM EDT [facility] ([facility]) MHC Telemed E/M Lvl 3--Est pt 01/25/2020 12:00:00 AM E DT [facility] ([facility]) [id number]"Psychotherapy 0 12:00:00 AM EDT - 01/23/2020 12:00:00 AM EDT [facility] ([facility]) [id number]"Psychotherapy 01/23/2020 12:00:00 AM EDT [facility] ([facility]) [id number]"Psychotherapy 0 12:00:00 AM EDT - 12/08/2019 12:00:00 AM EDT [facility] ([facility]) [id number]"Psychotherapy 12/08/2019 12:00:00 AM EDT [facility] ([facility]) [id number]"Psychotherapy 0 12:00:00 AM EDT - 11/21/2019 12:00:00 AM EDT [facility] ([facility]) [id number]"Psychotherapy 11/21/2019 12:00:00 AM EDT [facility] ([facility]) [id number]"Psychotherapy 0 12:00:00 AM EDT - 11/21/2019 12:00:00 AM EDT [facility] ([facility]) [id number]"Psychotherapy 11/21/2019 12:00:00 AM EDT [facility] ([facility]) MHC Telemed E/M Lvl 3--Est pt 11/10/2019 12:00:00 AM EDT - 11/10/2019 12:00:00 AM EDT [facility] ([facility]) MHC Telemed E/M Lvl 3--Est pt 11/10/2019 12:00:00 AM E DT [facility] ([facility]) TEMPMHCTelemed 30" Psychotherapy 020 12:00:00 AM EDT - 11/07/2019 12:00:00 AM EDT [facility] ([facility]) TEMPMHCTelemed 30" Psychotherapy 11/07/2019 12:00:00 A M EDT [facility] ([facility]) Extended Individual Psychotherapy - 45 min 07/24/2019 12:00:00 AM EST - 07/24/2019 12:00:00 AM EST [facility] ([facility]) Extended Individual Psychotherapy - 45 min 9 12:00:00 AM EST [facility] ([facility]) Brief Individual Psychotherapy - 30 min 07/03/2019 12:00:00 AM EST - 07/03/2019 12:00:00 AM EST [facility] ([facility]) Brief Individual Psychotherapy - 30 min 07/03/2019 12: 00:00 AM EST [facility] ([facility]) Results ID Date Data Source [id number] 06/20/2020 03:48:00 PM EST [facility] Name Value Range Interpretation Code Description Data Chetna rce(s) Supporting Document(s) SARS coronavirus 2 RNA [facility] This lab was ordered by [id number] and rep orted by [facility]. ID Date Data Source [id number] 06/03/2020 12:13:50 PM [facility] Hospital Name Value Range Interpretation Code Description Data Chetna rce(s) Supporting Document(s) Progress Note [facility] [id number]/HPOfdUJGsh4UuBCfrIQe1MJztLQBfK8BdALQ3sC8iYPP8AHyTKwMvHqEhZZQj lbm GlDhiDRfLvUWRsTjnDWtIrSPszAwlawJZrPT8CtRY3JPUmZ20mSJVxQQXlB0WlHUM7Ejh+Yq7ZUZDjgK FhQK5TMfbD8OmUgbi2JS8y4E7UZTJwB9R3SGna0yUMFomOsq7dFFe3JRAio0ZmmuNt/e+5n6tYD9uNlV LljNhsBVZB6Dtk2vfzm9BL+jwjkbQw3tpq/[place]/Bkqw [file] [id number] ID Date Data Source [id number] 04/15/2020 02:01:14 PM EDT [facility] Measurements & CalculationsHeight: 68 inches (5 ft. 8 in.) 172.72 cm Weight: 193 pounds 6 oz. 87.90 kg Body Mass Index (BMI): 29.51BMI Interpretation: OverweightBody Surface Area (BSA): 2.02Weight Management Education Done (Nutrition/Physical Activity)Vital SignsTemperature: 97.8F tympanic Pulse Rate: 71 beats/minuteRespiratory Rate: 15 respirations/minuteBlood Pressure: 134/76 left arm sitting automaticO2 Saturation: 98% sittingVital Signs performed by: Laurie Chapa MA, April 15, 2020 2:19 PMInitial Intake Information From: patientRoom #: 13Infectious Disease / Travel ScreeningRecent travel for you or any close contacts? NoHave you had any close contact with anyone diagnosed with or under investigation for COVID-19 (coronavirus)? NoFever? NoRespiratory symptoms: cough, cold, congestion, shortness of breath, difficulty breathing? NoLoss of smell? NoLoss of taste? NoSmoking, Tobacco, Vaping or Smoke Exposure StatusSmoke Status: former smokerTobacco Use: NoDo you vape? NoHealthcare HistorySince your last office visit...Have you been admitted to the hospital? NoHave you been to an emergency room (ER) or urgent care clinic? Yes - [facility] EREmergency room (ER) or urgent care date reported today: 04/01/2020Have you seen another healthcare provider? NoHave you seen a dentist? NoIntake performed by: Laurie Chapa MA, April 15, 2020 2:07 PMRate Your HealthIn general, would you say your health is? Very GoodPain AssessmentAre you currently having any pain which... You would like your provider to address? Yes Affects your activity level? YesNurses Note 24 yo male FU [facility] ER visit for back pain (04/01/2020)Pt repoerts pulled his back out cleaning his room. Pt reports he " threw his back out' that day but has had issues with his back since he was born. Pt states was born premature & parents were told his spine " did not fully develop & to expect problems as he grows up".Pt reports taking 2 meds from ER visit. He cannot recall the names of the meds at this tiime & pt reports they are "not really helping" with his back pain. Pt reports having hives all over his skin, pt states he's had them for a few months.Pain AssessmentPain ScaleNumeric Rating Scale: 5 / 10Location: lower backOnset: 04/01/2020Duration: 2 weeksFrequency: DailyCharacter/Quality: stabbingIs the pain radiating? NoScreening, Brief Intervention, & Referral to Treatment (SBIRT)Pre-Screening Questions How many times have you have 5 or more drinks in a day? 0How many times have you used an illegal drug or used a prescription medication for a non-medical reason? 0Performed by: Laurie Chapa MA, April 15, 2020 2:12 PMPatient History Me dical History:learning disablitydepression/anxietySurgical History:eye surgery as childFamily History:Social/Personal History: Chief Complaintfollow-up visit/ Hosp [facility] ER/Back painHistory of Present Illness (HPI)24 yo male presents for ED follow up for back pain. Pain has improved, but no resolved. He is taking muscle relaxer without much benefit. Wondering what else he can take. No bowel or bladder changes. No radicular symptoms. Further notes he has had a rash all summer that is somewhat itchy, but waxes and wanes. No tenderness, erythema, or warmth. Present mostly on his arms and legs. Has not tried anything for it. No other concerns or complaints.Transitions of Care InboundProblem ReviewProblem List was reviewed and/or updated during this visit.Medication Reconciliation & ReviewMedication List was reviewed and/or updated during this visit, including review of any noer-zyx-tdecynm medications, herbal therapies, and/or supplements.Allergy ReviewAllergy List was reviewed and/or updated during this visit.Adult Preventive CareProvider Calculated and Reviewed all Clinical Protocols for patient today. Labs/Meds/Other Counseling-Nutrition and Physical Activity:BMI Interpretation: Overweight (04/15/2020) Counseling: Done (04/15/2020) Physical Activity: Done (04/15/2020)Review of Systems General: Denies loss of appetite, chills, dizziness, fatigue, fever, continued fever, headache, feeling ill, sweats, night sweats, sleep disturbances, weight loss. Eyes: Denies blurring of vision, double vision, irritation, discharge, vision loss, eye pain, eye swelling, droopy eyelid, sensitivity to light, redness, itching. Ears/Nose/Throat: Denies earache, ear discharge, ringing in ears, decreased hearing, nasal congestion, nosebleeds, runny nose, sore throat, hoarseness, difficulty swallowing, dry mouth, tooth pain, bleeding gums, swollen glands. Respiratory: Complains of difficulty breathing, shortness of breath. Gastrointestinal: Denies fecal incontinence. Genitourinary: Denies urinary inco ntinence, incomplete emptying. Musculoskeletal: Complains of back pain. Denies joint pain, leg pain, other pain-see comments, joint swelling, body aches, muscle aches, muscle cramps, muscle weakness, stiffness, recent injury. Neurologic: Complains of muscle impairment, weakness, numbness/tingling. Physical ExamGeneral Appearance: well nourished, well hydrated, no acute distressRespiratory, Auscultation: clear to auscultation bilaterally; no rales, rhonchi, or wheezesGait & Station: normalBack: ROM limited in flexion and extension due to pain. Some TTP of paraspinal muscles bilaterally. negative straight leg raise bilaterally. Lower Extremity, Right: normal ROM and strength, no joint enlargement or tendernessLower Extremity, Left: normal ROM and strength, no joint enlargement or tendernessMood & Affect: no depression, anxiety, or agitationCare Management Plan Transitions of CareInboundRate Your HealthIn general, would you say your health is? Very GoodAssessment & Plan Problems:Added: Rash and other nonspecific skin eruption (ICD-782.1) (QDU26-O85) Assessment: likely environmental, sent cetirizine. follow up if not improving or worseningBack pain, acute (ICD-724.5) (LHK26-Z71.89) Assessment: likely strain/sprain, as diagnosed in the ED. continue with muscle relaxer. sent short course of NSAID. no red flag symptoms. discussed supportive care and will trial PT.Assessment not Saved Back pain; acute (FXQ73-C34.89): Comment Onlylikely strain/sprain, as diagnosed in the ED. continue with muscle relaxer. sent short course of NSAID. no red flag symptoms. discussed supportive care and will trial PT. discussed signs and symptoms that would warrant urgent eval. patient expresses understanding to plan.Medications:IBUPROFEN 800 MG ORAL TABLETALL DAY ALLERGY 10 MG ORAL TABLETMedication Changes:New Prescription:ALL DAY ALLERGY 10 MG ORAL TABLET-1 tablet once a day for 30 days Qty: 30[Tablet] Refills: 1 Method: ElectronicIBUPROFEN 800 MG ORAL TABLET-1 tablet 3 times daily for back pain, take with food Qty: 30[Tablet] Refills: 0 Method: ElectronicRemoved:IBUPROFEN 600 MG ORAL TABLET-1 tab by mouth three times per day as needed for painAllergies:No Known Allergies (updated 06/14/2019) Orders:Ofc Vst, Est Level III [CPT-42784] Physical Therapy Consult [CPT-78921] Follow-Up Return to clinic: in 30 days for follow upMedications:IBUPROFEN 800 MG ORAL TABLET (IBUPROFEN) 1 tablet 3 times daily for back pain, take with food #30[Tablet] x 0 Route:ORAL Entered and Authorized by: Liz MEDEIROS Method used: Electronically to [facility] (retail) [address] [place] [address] Note to Pharmacy: Route: ORAL; RxID: [id number] DAY ALLERGY 10 MG ORAL TABLET (CETIRIZINE HCL) 1 tablet once a day for 30 days #30[Tablet] x 1 Route:ORAL Entered and Authorized by: Liz MEDEIROS Method used: Electronically to [facility] (retail) [address] [place] [address] Note to Pharmacy: Route: ORAL; RxID: [id number] signed by Liz MEDEIROS on 04/15/2020 at 2:43 PM Name Value Range Interpretation Code Description Data Chetna rce(s) Supporting Document(s) Procedure Social History Code Duration Value Status Description Data Source(s ) Smoking 07/03/2020 12:00:00 AM EST Current every day smoker co mpleted Current every day smoker [facility] ([facility]) Smoking 06/24/2020 12:00:00 AM EST Current every day smoker co mpleted Current every day smoker [facility] ([facility]) Smoking 06/10/2020 12:00:00 AM EST Current every day smoker co mpleted Current every day smoker [facility] ([facility]) Smoking 01/25/2020 12:00:00 AM EDT Current every day smoker co mpleted Current every day smoker [facility] ([facility]) Smoking 01/23/2020 12:00:00 AM EDT Current every day smoker co mpleted Current every day smoker [facility] ([facility]) Smoking 12/08/2019 12:00:00 AM EDT Current every day smoker co mpleted Current every day smoker [facility] ([facility]) Smoking 11/21/2019 12:00:00 AM EDT Current every day smoker co mpleted Current every day smoker [facility] ([facility]) Smoking 11/10/2019 12:00:00 AM EDT Current every day smoker co mpleted Current every day smoker [facility] ([facility]) Smoking 11/07/2019 12:00:00 AM EDT Current every day smoker co mpleted Current every day smoker [facility] ([facility]) Smoking 07/24/2019 12:00:00 AM EST Current every day smoker co mpleted Current every day smoker [facility] ([facility]) Smoking 07/03/2019 12:00:00 AM EST Current every day smoker co mpleted Current every day smoker [facility] ([facility]) Vital Signs ID Date Data Source UNK Name Value Range Interpretation Code Description Data Source(s) Body weight 3152 [oz_av] 3152 [oz_av] [facility] ([facility]) Systolic blood pressure 126 mm[Hg] 126 mm[Hg] [facility] ([facility]) Body mass index (BMI) [Ratio] 30.9 kg/m2 30.9 k g/m2 [place] ([facility]) Body height 67 [in_i] 67 [in_i] [facility] ([facility]) Diastolic blood pressure 87 mm[Hg] 87 mm[Hg] [facility] ([facility]) Diastolic blood pressure 0 mm[Hg] Normal (applies to non-numeric results) 0 mm[Hg] [facility] ([facility]) Systolic blood pressure 0 mm[Hg] Normal (applies t o non-numeric results) 0 mm[Hg] [facility] ([facility]) Body mass index (BMI) [Ratio] 0.00 kg/m2 No rmal (applies to non-numeric results) 0.00 kg/m2 [facility] ([facility]) Body weight Measured 0.00 lbs Normal (applies to n on-numeric results) 0.[address] [facility] ([facility]) Body height 0.00 in Normal (applies to non-numeric resu lts) 0.[address] [facility] ([facility]) Diastolic blood pressure 0 mm[Hg] Normal (applies to non-numeric results) 0 mm[Hg] [facility]) Systolic blood pressure 0 mm[Hg] Normal (applies t o non-numeric results) 0 mm[Hg] [facility] ([facility]) Body mass index (BMI) [Ratio] 0.00 kg/m2 No rmal (applies to non-numeric results) 0.00 kg/m2 [facility] ([facility]) Body weight Measured 0.00 lbs Normal (applies to n on-numeric results) 0.00 lbs [facility] ([facility]) Body height 0.00 in Normal (applies to non-numeric resu lts) 0.00 in [facility]) ID Date Data Source [id number] 06/03/2020 12:13:50 PM [facility] Name Value Range Interpretation Code Description Data Source(s) TRANSFER FROM [facility] Patient Treatment Plan of Care Planned Activity Planned Date Details Description Data Source (s) Sertraline 50 MG Oral Tablet [facility] ([facility]) Sertraline 100 MG Oral Tablet [facility] ([facility]) Naproxen 500 MG Oral Tablet [facility] ([facility]) Methocarbamol 750 MG Oral Tablet [facility] ([facility]) cetirizine hydrochloride 10 MG Oral Tablet [facility] ([facility]) 24 HR Bupropion Hydrochloride 150 MG Extended Release Oral Tablet [facility] ([facility])
--- OUTSIDE RECORDS SUMMARY | 2020-08-16 10:05 | CCD ---
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 Name Role Phone Frances Howard PCP Allergies, Adverse Reactions, Alerts No Data in Section Problem List No Data in Section Medications No Data in Section Social History Social History Element Description Concept Effective Date Smoking Status Current every day smoker [id number] Immunizations No Data in Section Vital Signs No Data in Section Procedures Date Concept Id Description Targeted Site Concept Targeted Site Concept Type 06/10/2020 85536 Extended Individual Psychotherapy - 45 min CPT Patient has no history of implantable de vices Encounters Encounter Start Date End Date Encounter Type Description Diagnosis Di agnosis Desc Location Author First Name Author Last Name Npid Taxonomy Cod e Taxonomy Desc Phone Number Location Addr1 Location Addr2 Location [facility] Location Sta te Location Zip [id number] 06/10/2020 06/10/2020 38817 Extended Individual Psych otherapy - 45 min [facility] Frances [phone] [id number] 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
--- OUTSIDE RECORDS SUMMARY | 2020-08-16 10:05 | CCD | Summary of Care ---
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 Name Role Phone PCP Unavailable Encounter Details Care Team Description Date Type Department 06/03/2020 [facility] TRANSFER CE NTER Encounter [address] [place] [address] Allergies Not on Filedocumented as of this encounter (statuses as of 06/18/2020) Medications Not on filedocumented as of this encounter (statuses as of 06/18/2020) Active Problems Not on filedocumented as of this encounter (statuses as of 06/18/2020) Social History Date Tobacco Use Types Packs/Day Years Used Never Assessed Sex Assigned at Date Recorded Not on file Date Recorded COVID-19 Exposure Response 06/03/2020 10:46 AM EST In the last month, have you been in contact with No / Unsure someone who was confirmed or suspected to have Coronavirus / COVID-19? documented as of this encounter Last Filed Vital Signs Not on filedocumented in this encounter Progress Notes * Lina Cruz RN - 06/03/2020 10:55 AM EST I was asked to ascertain bed availability for this patient and have determined t hat no appropriate bed for this individual patient is available at either campus . This includes hallway beds or other accommodations that we would customarily m noe for this individual patient's needs. documented in this encounter Plan of Treatment Health Maintenance Due Date Last Done Comments HIV Screening 2009 Influenza Vaccine 05/02/2020 07/01/2015, 05/30/2014, 06/06/2012 DTaP,Tdap,and Td Vaccines 11/24/2028 11/24/2018, (7 - Td) 05/22/2008, 04/27/2002, Additional history exists Pneumococcal Vaccine: 65+ 2061 Years (1 of 1 - PPSV23) Hepatitis B Vaccines Completed 06/05/1997, 03/12/1997, 01/12/1997 IPV Vaccines Completed 04/27/2002, 06/05/1997, 03/12/1997, Additional history exists MMR Vaccines Completed 04/27/2002, 03/13/1998 Varicella Vaccines Completed 08/21/2010, 04/27/2002 HIB Vaccines Aged Out No longer eligible based on patient's age to complete this topic Hepatitis A Vaccines Aged Out No longer eligibl e based on patient's age to complete this topic Pneumococcal Vaccine: Aged Out No longer eligib le based on patient's age to Pediatrics (0 to 5 Years) complete this topic and At-Risk Patients (6 to 64 Years) documented as of this encounter Results Not on filedocumented in this encounter
[2020-08-16 10:45] LABS: HEMATOCRIT 40.5 % (42.0-52.0); HEMOGLOBIN 13.4 g/dl (13.5-17.5); MEAN CORPUSCULAR HEMOGLOBIN 29.9 pg (27.0-33.0); MEAN CORPUSCULAR HGB CONC 33.1 g/dl (32.0-36.5); MEAN CORPUSCULAR VOLUME 90.4 fl (80.0-96.0); PLATELET COUNT, AUTOMATED 186 10^3/uL (150-450); RED BLOOD COUNT 4.48 10^6/uL (4.30-6.10); WHITE BLOOD COUNT 7.2 10^3/uL (4.0-10.0)
--- OUTSIDE RECORDS SUMMARY | 2020-08-16 11:03 | CCD ---
Author Author [facility] Organization [facility] Address Unknown Phone Unavailable Care Team Providers Care Wafer Substrate Tester Name Role Phone Davido M Liz PA Unavailable Unavailable Scordo, M [...] Unavailable [facility], KGATES Unavailable Unavailable MACQUEEN, DANA DELINQUENT TAX COLLECTOR Unavailable Unavailable MACQUEEN, DANA DELINQUENT TAX COLLECTOR Unavailable Unavailable MACQUEEN, DANA DELINQUENT TAX COLLECTOR Unavailable Unavailable MACQUEEN, DANA DELINQUENT TAX COLLECTOR Unavailable Unavailable MACQUEEN, DANA DELINQUENT TAX COLLECTOR Unavailable Unavailable MACQUEEN, DANA DELINQUENT TAX COLLECTOR Unavailable Unavailable MACQUEEN, DANA DELINQUENT TAX COLLECTOR Unavailable Unavailable MACQUEEN, DANA DELINQUENT TAX COLLECTOR Unavailable Unavailable MACQUEEN, DANA DELINQUENT TAX COLLECTOR Unavailable Unavailable MACQUEEN, DANA DELINQUENT TAX COLLECTOR Unavailable Unavailable MACQUEEN, DANA DELINQUENT TAX COLLECTOR Unavailable Unavailable SYSTEM, NOT IN PROVIDER Unavailable Unavailable Ulises, Mesha Unavailable Susanne Romo DELINQUENT TAX COLLECTOR Unavailable Unavailable EGORHO, F MARISELA FPMHNP Unavailable [...] is protected by Article 27-F of the [facility] Public Health law. If you continue you may have access to information: Regarding HIV / AIDS; Provided by facilities licensed or operated by the [facility] Office of Mental Health; or Provided by the [facility] Office for People With Developmental Disabilities. If such information is present, then the following [facility] mandated warning applies: This information has been [...] law may result in a fine or long term sentence or both. A general authorization for the release of medical or other information is NOT sufficient authorization for further disc losure. Family History Family Member Name Family Member Gender Family Member Status Date o f Status Description Data Source(s) Unknown Male Problem MEDENT ([facility]) Unknown Female Problem MEDENT ([facility]) Unknown Female Problem MEDENT ([facility]) Encounters Encounter Providers Location Date Indications Data Source(s ) Psychiatric Diagnostic Evaluation with Medical Service s Attender: MARISELA HODGE [facility] 07/03/2020 11:00:00 AM EST - 07/03/2020 11:00:00 AM EST [facility] ([facility]) Attender: MARISELA BATEMANVEL 07/03/2020 12:00: 00 AM EST [facility] ([facility]) Psychiatric Diagnostic Evaluation (Non-Medical) Attender: Sparkle Montgomery [facility] 06/24/2020 02:00:00 AM EST - 06/24/2020 02:00:00 AM EST [facility] ([facility]) Attender: Mesha Ulises 06/24/2020 12:00:00 AM EST [facility] ([facility]) Liz Rodrigez PA-C: [address] [place] [phone], Ph. Attender: Liz NEWMAN - [facility] 06/18/2020 12:00:00 AM EST [facility] ([facility]) Brief Individual Psychotherapy - 30 min Attender: Frances lopez [facility] 06/10/2020 11:15:00 AM EST - 06/10/2020 11:15:00 AM EST [facility] ([facility]) Extended Individual Psychotherapy - 45 min Attender: Cuca Howard [facility] 06/10/2020 11:00:00 AM EST - 06/10/2020 11:00:00 AM EST [facility] ([facility]) Attender: Frances Howard 06/10/2020 12:00:00 AM EST [facility] ([facility]) Attender: Frances Howard 06/10/2020 12:00:00 AM EST [facility] ([facility]) [facility]: [facility]04/2020 10:37:00 AM ES [facility] Outpatient Referrer: PROVIDER SYSTEM [id number] 06/03/2020 10:55:[address] [facility] SI [facility]: [facility] 04/15/2020 03:33:01 PM ED [facility]: [facility] 04/15/2020 03:32:01 PM ED [facility]: [facility] 04/15/2020 02:44:01 PM ED [facility] 04/15/2020 02:44:00 PM ED [facility]: [facility] 04/15/2020 01:30:00 PM ED T [facility] Outpatient Attender: ROSANA [facility] 03/28/2020 12:02:18 AM ED [facility]: [facility] 03/27/2020 12:55:00 PM ED T [facility] Out[facility]: [facility] 03/27/2020 11:59:01 AM ED [facility] Outpatient Attender: ROSANA [facility] 02/28/2020 10:11:01 AM ED T [facility] Outpatient Attender: Keyon Romo NP [facility] 01/25/2020 02:00:00 AM EDT - 01/25/2020 02:00:00 AM EDT [facility] ([facility]) Attender: Keyon Romo NP 01/25/2020 12:00:00 AM EDT [facility] ([facility]) [id number]"Psych[facility] 03:00:00 AM EDT - 01/23/2020 03:00:00 AM EDT [facility] ([facility]) Attender: Kim Richards 01/23/2020 12:00:00 AM EDT [facility] ([facility]) Outpatient Attender: ROSANA [facility] 01/11/2020 02:18:01 PM ED [facility] Outpatient Attender: ROSANA [facility] 01/09/2020 07:55:25 PM ED [facility] [id number]"Psych[facility]08[facility]2019 03:00:00 AM EDT - 12/08/2019 03:00:00 AM EDT [facility] ([facility]) Attender: Kim Richards 12/08/2019 12:00:00 AM EDT [facility] ([facility]) [id number]"Psychotherapy [facility] 11/21/2019 04:30:00 AM EDT - 11/21/2019 04:30:00 AM EDT [facility] ([facility]) [id number]"Psychotherapy Att[facility]: [facility] 11/21/2019 04:00:00 AM EDT - 11/21/2019 04:00:00 AM EDT [facility] ([facility]) Attender: Kim Richards 11/21/2019 12:00:00 AM EDT [facility] ([facility]) Attender: Kim Richards 11/21/2019 12:00:00 AM EDT [facility] ([facility]) Outpatient Attender: DANA THOMAS NP [facility] 11/10/2019 01:00:00 AM EDT - 11/10/2019 01:00:00 AM EDT [facility] ([facility]) Attender: DANA THOMAS NP 11/10/2019 12:00:00 AM EDT [facility] ([facility]) TEMPMHCTelemed 30" Psychotherapy Attender: Kim Richards [facility] 11/07/2019 02:00:00 AM EDT - 11/07/2019 02:00:00 AM EDT [facility] ([facility]) Attender: Kim Richards 11/07/2019 12:00:00 AM EDT [facility] ([facility]) Outpatient Attender: ROSANA [facility] 10/24/2019 09:01:06 PM ED T [facility] Extended Individual Psychotherapy - 45 min Attender: Jaxon Villatoro [facility] 07/24/2019 02:30:00 AM EST - 07/24/2019 02:30:00 AM EST [facility] ([facility]) Attender: Dariana Villatoro 07/24/2019 12:00:00 A M EST [facility] ([facility]) Brief Individual Psychotherapy - 30 min Attender: Dariana alva [facility] 07/03/2019 01:45:00 AM EST - 07/03/2019 01:45:00 AM EST [facility] ([facility]) Attender: Dariana Villatoro 07/03/2019 12:00:00 A M EST [facility] ([facility]) Functional Status Medications Medication Brand Name Start Date Product Form Dose Route Admi nistrative Instructions Pharmacy Instructions Status Indications Reaction Description Data Source(s) 24 HR Bupropion Hydrochloride 150 MG Extended Release Oral T ablet bupropion HCl 11/10/2019 12:00:00 AM EDT 150 mg by mouth completed [id number] bupropion HCl by mouth [id number] 11/10/2019 02/08/2020 once a day 30 150 mg tablet extended release 24 hr 67054 [id number] aDna Thomas [id number] Psychiatric/Mental Health [facility] ([facility]) Sertraline 100 MG Oral Tablet sertraline 11/10/2019 12:00:00 AM EDT 100 mg by mouth completed 566315 sertraline by mouth [id number] 201902/08/2020 once a day 30 100 mg tablet 49597 755210 [id number] Dana Nicholas Jennifer [id number] Psychiatric/Mental Health [facility] ([facility]) 24 HR venlafaxine 75 MG Extended Release Oral Tablet venlafa xine 06/02/2019 12:00:00 AM EDT 75 mg by mouth completed 928538 ve nlafaxine by mouth [id number] 06/02/2019 08/04/2019 every afternoon 30 75 mg tablet ex tended release 24hr 75362 [id number] [place] [id number] Ps ychiatric/Mental Health [facility] ([facility]) 24 HR Bupropion Hydrochloride 150 MG Ext ended Release Oral Tablet bupropion HCl XL 150 mg 24 hr tablet, extended release bupropion HCl XL 150 mg 24 hr tablet, extended release completed 24 HR bupropion hydrochloride 150 MG Extended Release Oral Tablet [facility] ([facility]) cetirizine hydrochloride 10 MG Oral Tablet cetirizine 10 mg tablet cetirizine 10 mg tablet completed cetirizine h ydrochloride 10 MG Oral Tablet [facility] ([facility]) Naproxen 500 MG Oral Tablet naproxen 500 mg tablet TAKE ONE TABLET BY MOUTH TWICE A DAY WITH FOOD naproxen 500 mg tablet TAKE ONE TABLET B Y MOUTH TWICE A DAY WITH FOOD completed naproxen 500 MG Oral Tablet [facility] ([facility]) Methocarbamol 750 MG Oral Tablet methoca rbamol 750 mg tablet TAKE ONE TABLET BY MOUTH THREE TIMES A DAY methocarbamol 750 mg tablet TAKE ONE TAB LET BY MOUTH THREE TIMES A DAY completed meth ocarbamol 750 MG Oral Tablet [facility] ([facility]) Sertraline 50 MG Oral Tablet sertraline 50 mg tablet TAKE ONE TABLET BY MOUTH EVERY DAY FOR DEPRESSION sertraline 50 mg tablet TAKE ONE TABLET BY MOUTH EVERY DAY FOR DEPRESSION completed ser traline 50 MG Oral Tablet [facility] ([facility]) Sertraline 100 MG Oral Tablet sertraline 100 mg tablet TAKE ONE AND ONE HALF TABLET BY MOUTH ONCE A DAY sertraline 100 mg tablet TAKE ONE AND ON E HALF TABLET BY MOUTH ONCE A DAY completed se rtraline 100 MG Oral Tablet [facility] ([facility]) Insurance Providers Payer name Policy type / Coverage type Policy ID Covered green party ID Covered green party's relationship to guadarrama Policy Guadarrama Plan Information [facility] [id number] SP [id number] Managed Care - [facility] Community Plan P [id number] S [id number] Medicaid S [id number] S [id number] [facility] COMMUNITY PLAN [facility] [id number] SP [id number] [facility] U [id number] Self [id number] MEDICAID M [id number] Self [id number] Managed Care - [facility] Community Plan P [id number] S [id number] Managed Care [facility] P [id number] S [id number] Managed Care [facility] P UNAVAILABLE S [facility](MCA[facility]) O [id number] S [id number] [facility] COMMUNITY PLAN [facility] [id number] SP [id number] [facility]-Medicaid [id number] [facility] [id number] ANSI-Medicaid [id number] ANSI-Medicaid [id number] Medicaid P [id number] S [id number] ANSI-Medicaid [id number] ANSI-Medicaid [id number] UMR O [id number] S [id number] MEDICAID M [id number] S [id number] UMR [facility] [id number] FA2 [id number] MEDICAID [id number] SP [id number] Medicaid [place] Medigap Part B [id number] Self [id number] [place] (pr) [facility] [id number] Family Dependent [id number] Umr (pr) Commercial [id number] [place] [facility] [id number] Self [id number] [place] (pr) [facility] [id number] Family Dependent [id number] Umr (pr) Commercial [id number] [place] [id number] SF2 [id number] Medicaid P [id number] S [id number] Self Pay P UNAVAILABLE S UNAVAILA BLE MEDICAID -O/P RAD ONLY [id number] 18 [id number] MEDICAID -O/P [id number] 18 [id number] [place]-O/P [id number] 19 [id number] MEDICAID -RECURRING [id number] 8 [id number] [place] U [id number] Self [id number] MEDICAID [id number] [place] [id number] 19 [id number] MEDICAID [facility] MC [id number] 18 [id number] [place] [id number] 19 [id number] MEDICAID -PHYSICIAN [id number] 1 8 [id number] [place] -PHYSICIAN [id number] 1 [id number] Medicaid Commercial [id number] Self [id number] R [place] Commercial [id number] Family Dependent [id number] Medicaid [facility] Medicaid [id number] Self C [id number] Medicaid [place] Medigap Part B [id number] Self [id number] [place] (pr) Medigap Part B [id number] Family Dependent [id number] Umr (pr) Commercial [id number] Medicaid Commercial [id number] Self [id number] R [place] Commercial [id number] Family Dependent [id number] Medicaid [facility] Medicaid [id number] Self C [id number] Medicaid Commercial [id number] Self [id number] R [place] Commercial [id number] Family Dependent [id number] Medicaid [facility] Medicaid [id number] Self C [id number] [place] Medigap Part B [id number] Self [id number] [place] (pr) Commercial [id number] Family Dependent 8 [id number] [place] [id number] 19 [id number] Medicaid Commercial [id number] Self [id number] R [place] Commercial [id number] Family Dependent [id number] Medicaid [facility] Medicaid [id number] Self C [id number] MEDICAID -CLINIC [id number] [place]-CLINIC [id number] 19 [id number] [place] Medigap Part B [id number] Family Dependent [id number] Medicaid Commercial [id number] Self [id number] R [place] Commercial [id number] Family Dependent [id number] Medicaid [facility] Medicaid [id number] Self C [id number] [place] Commercial [id number] Family Dependent [id number] Medicaid [facility] Medicaid Self [place] Commercial Family Dependent MEDICAID [facility] [id number] [place] [id number] FA [id number] MEDICAID -O/P EMERGENCY ROOM [id number] Problems, Conditions, and Diagnoses Code Display Name Description Problem Type Effective Dates Data Source(s) F12.10 Cannabis abuse, uncomplicated Cannabis Use Disorder, M ild Condition 07/03/2020 12:00:00 AM EST [facility] ([facility]) Z72.0 Tobacco use Tobacco Use Disorder, Mild Condition 1 09/03/2019 12:00:00 AM EST [facility] ([facility]) F33.1 Major depressive disorder, recurrent, mo derate Major Depressive Disorder, Recurrent episode, Moderate Condition 07/03/2020 12:00:00 AM EST [facility] ([facility]) 782.1 Rash and other nonspecific skin eruption Rash and other nonspecific skin eruption 04/15/2020 02:43:57 PM EDT [facility] M54.89 Other dorsalgia Back pain, acute 04/15/2020 02: 43:57 PM EDT [facility] F42.9 Obsessive-compulsive disorder, unspecifi ed Unspecified Obsessive- Compulsive and Related Disorder Condition 01/25/2020 12:00:00 AM EDT A [facility] ([facility]) F41.9 Anxiety disorder, unspecified Unspecified Anxiety Diso rder Condition 01/25/2020 12:00:00 AM EDT [facility] ([facility]) [id number] SNOMED CT Concept SNOMED CT Concept Problem 05/30 12:00:00 AM EDT - 05/29/2020 12:00:00 AM EDT [facility] ([facility]) SI SI Diagnosis 06/03/2020 10:55:00 AM [facility] Surgeries/Procedures Procedure Description Date Indications Data Source(s) Psychiatric Diagnostic Evaluation with Medical Services 07/03/2020 12:00:00 AM EST - 07/03/2020 12:00:00 AM EST [facility] ([facility]) Psychiatric Diagnostic Evaluation with Medical Services 07/03/2020 12:00:00 AM EST [facility] ([facility]) Psychiatric Diagnostic Evaluation (Non-Medical) 06/24/2020 12:00:00 AM EST - 06/24/2020 12:00:00 AM EST [facility] ([facility]) Psychiatric Diagnostic Evaluation (Non-Medical) 2019 12:00:00 AM EST [facility] ([facility]) Brief Individual Psychotherapy - 30 min 06/10/2020 12:00:00 AM EST - 06/10/2020 12:00:00 AM EST [facility] ([facility]) Brief Individual Psychotherapy - 30 min 06/10/2020 12: 00:00 AM EST [facility] ([facility]) Extended Individual Psychotherapy - 45 min 06/10/2020 12:00:00 AM EST - 06/10/2020 12:00:00 AM EST [facility] ([facility]) Extended Individual Psychotherapy - 45 min 0 12:00:00 AM EST [facility] ([facility]) MHC Telemed E/M Lvl 3--Est pt 01/25/2020 12:00:00 AM EDT - 01/25/2020 12:00:00 AM EDT [facility] ([facility]) MHC Telemed E/M Lvl 3--Est pt 01/25/2020 12:00:00 AM E DT [facility] ([facility]) [id number]"Psychotherapy 0 12:00:00 AM EDT - 01/23/2020 12:00:00 AM EDT [facility] ([facility]) [id number]"Psychotherapy 01/23/2020 12:00:00 AM EDT [facility] ([facility]) [id number]"Psychotherapy 0 12:00:00 AM EDT - 12/08/2019 12:00:00 AM EDT [facility] ([facility]) [id number]"Psychotherapy 12/08/2019 12:00:00 AM EDT [facility] ([facility]) [id number]"Psychotherapy 0 12:00:00 AM EDT - 11/21/2019 12:00:00 AM EDT [facility] ([facility]) [id number]"Psychotherapy 11/21/2019 12:00:00 AM EDT [facility] ([facility]) [id number]"Psychotherapy 0 12:00:00 AM EDT - 11/21/2019 12:00:00 AM EDT [facility] ([facility]) [id number]"Psychotherapy 11/21/2019 12:00:00 AM EDT [facility] ([facility]) MHC Telemed E/M Lvl 3--Est pt 11/10/2019 12:00:00 AM EDT - 11/10/2019 12:00:00 AM EDT [facility] ([facility]) MHC Telemed E/M Lvl 3--Est pt 11/10/2019 12:00:00 AM E DT [facility] ([facility]) TEMPMHCTelemed 30" Psychotherapy 020 12:00:00 AM EDT - 11/07/2019 12:00:00 AM EDT [facility] ([facility]) TEMPMHCTelemed 30" Psychotherapy 11/07/2019 12:00:00 A M EDT [facility] ([facility]) Extended Individual Psychotherapy - 45 min 07/24/2019 12:00:00 AM EST - 07/24/2019 12:00:00 AM EST [facility] ([facility]) Extended Individual Psychotherapy - 45 min 9 12:00:00 AM EST [facility] ([facility]) Brief Individual Psychotherapy - 30 min 07/03/2019 12:00:00 AM EST - 07/03/2019 12:00:00 AM EST [facility] ([facility]) Brief Individual Psychotherapy - 30 min 07/03/2019 12: 00:00 AM EST [facility] ([facility]) Results ID Date Data Source [id number] 06/20/2020 03:48:00 PM EST [facility] Name Value Range Interpretation Code Description Data Chetna rce(s) Supporting Document(s) SARS coronavirus 2 RNA [facility] This lab was ordered by [facility] and rep orted by [facility]. ID Date Data Source [id number] 06/03/2020 12:13:50 PM [facility] Name Value Range Interpretation Code Description Data Chetna rce(s) Supporting Document(s) Progress Note [facility] XGPORj8qJeJMWvAt31/THLifFQIko9TwXJupDIq1NTndMFSdG7JzCOB5oF5vGSH4RHxESzUqMfTnIOYs lbm DmDnmEEvWyWQPpSwaVRsSvCExwTrtyqMIzKE7EoBW6QFAyM17rAJRyITWyJ7PnVTE2Azm+Qf8WVHAhzY GjUP9TMgqM3BcYaeb9YH6b5W4IKINnF7X0UYai2pQPScmNxx5xDLv4QJCkl2ZpxoTd/e+2t0sTD0iIyQ LgfTpsRSBS6Gfj4lyrq0NK+sydzhTv7rek/Langley/Bkqw [file] [id number] ID Date Data Source [id number] 04/15/2020 02:01:14 PM EDT [facility] Measurements & CalculationsHeight: 68 inches (5 ft. [...] (ER) or urgent care clinic? Yes - [facility] EREmergency room (ER) or urgent care [...] level? YesNurses Note 24 yo male FU [facility] ER visit for back pain (04/01/2020)Pt [...] History:Social/Personal History: Chief Complaintfollow-up visit/ Hosp D/C [facility] ER/Back painHistory of Present Illness (HPI)24 [...] during this visit, including review of any hptz-phm-blvivrr medications, herbal therapies, and/or supplements.Allergy ReviewAllergy List [...] Rash and other nonspecific skin eruption (ICD-782.1) (CJO89-W55) Assessment: likely environmental, sent cetirizine. follow up if not improving or worseningBack pain, acute (ICD-724.5) (ILX67-U68.89) Assessment: likely strain/sprain, as diagnosed in the ED. continue with muscle relaxer. sent short course of NSAID. no red flag symptoms. discussed supportive care and will trial PT.Assessment not Saved Back pain; acute (NUI91-T36.89): Comment Onlylikely strain/sprain, as diagnosed in the [...] (updated 06/14/2019) Orders:Ofc Vst, Est Level III [CPT-24108] Physical Therapy Consult [CPT-77908] Follow-Up Return to clinic: in 30 days for follow upMedications:IBUPROFEN 800 MG ORAL TABLET (IBUPROFEN) 1 tablet 3 times daily for back pain, take with food #30[Tablet] x 0 Route:ORAL Entered and Authorized by: Liz MEDEIROS Method used: Electronically to [facility] (retail) [address] [place] [address] Note to Pharmacy: Route: ORAL; RxID: [id number] DAY ALLERGY 10 MG ORAL TABLET (CETIRIZINE HCL) 1 tablet once a day for 30 days #30[Tablet] x 1 Route:ORAL Entered and Authorized by: Liz MEDEIROS Method used: Electronically to [facility] (retail) [address] [place] [address] Note to Pharmacy: Route: ORAL; RxID: [id number] signed by Liz MEDEIROS on 04/15/2020 at 2:43 PM Name Value Range Interpretation Code Description Data Chetna rce(s) Supporting Document(s) Procedure Social History Code Duration Value Status Description Data Source(s ) Smoking 07/03/2020 12:00:00 AM EST Current every day smoker co mpleted Current every day smoker [facility] ([facility]) Smoking 06/24/2020 12:00:00 AM EST Current every day smoker co mpleted Current every day smoker [facility] ([facility]) Smoking 06/10/2020 12:00:00 AM EST Current every day smoker co mpleted Current every day smoker [facility] ([facility]) Smoking 01/25/2020 12:00:00 AM EDT Current every day smoker co mpleted Current every day smoker [facility] ([facility]) Smoking 01/23/2020 12:00:00 AM EDT Current every day smoker co mpleted Current every day smoker [facility] ([facility]) Smoking 12/08/2019 12:00:00 AM EDT Current every day smoker co mpleted Current every day smoker [facility] ([facility]) Smoking 11/21/2019 12:00:00 AM EDT Current every day smoker co mpleted Current every day smoker [facility] ([facility]) Smoking 11/10/2019 12:00:00 AM EDT Current every day smoker co mpleted Current every day smoker [facility] ([facility]) Smoking 11/07/2019 12:00:00 AM EDT Current every day smoker co mpleted Current every day smoker [facility] ([facility]) Smoking 07/24/2019 12:00:00 AM EST Current every day smoker co mpleted Current every day smoker [facility] ([facility]) Smoking 07/03/2019 12:00:00 AM EST Current every day smoker co mpleted Current every day smoker [facility] ([facility]) Vital Signs ID Date Data Source UNK Name Value Range Interpretation Code Description Data Source(s) Body weight 3152 [oz_av] 3152 [oz_av] KAVON ([facility]) Systolic blood pressure 126 mm[Hg] 126 mm[Hg] A THENA ([facility]) Body mass index (BMI) [Ratio] 30.9 kg/m2 30.9 k g/m2 KAVON ([facility]) Body height 67 [in_i] 67 [in_i] KAVON ([facility]) Diastolic blood pressure 87 mm[Hg] 87 mm[Hg] [facility]AVON ([facility]) Diastolic blood pressure 0 mm[Hg] Normal (applies to non-numeric results) 0 mm[Hg] [facility] ([facility]) Systolic blood pressure 0 mm[Hg] Normal (applies t o non-numeric results) 0 mm[Hg] [facility] ([facility]) Body mass index (BMI) [Ratio] 0.00 kg/m2 No rmal (applies to non-numeric results) 0.00 kg/m2 [facility] ([facility]) Body weight Measured 0.00 lbs Normal (applies to n on-numeric results) 0.00 lbs [facility] ([facility]) Body height 0.00 in Normal (applies to non-numeric resu lts) 0.00 in [facility] ([facility]) Diastolic blood pressure 0 mm[Hg] Normal (applies to non-numeric results) 0 mm[Hg] [facility] ([facility]) Systolic blood pressure 0 mm[Hg] Normal (applies t o non-numeric results) 0 mm[Hg] [facility] ([facility]) Body mass index (BMI) [Ratio] 0.00 kg/m2 No rmal (applies to non-numeric results) 0.00 kg/m2 [facility] ([facility]) Body weight Measured 0.00 lbs Normal (applies to n on-numeric results) 0.00 lbs [facility] ([facility]) Body height 0.00 in Normal (applies to non-numeric resu lts) 0.00 in [facility] ([facility]) ID Date Data Source [id number] 06/03/2020 12:13:50 PM [facility] Name Value Range Interpretation Code Description Data Source(s) TRANSFER FROM [facility] Patient Treatment Plan of Care Planned Activity Planned Date Details Description Data Source (s) Sertraline 50 MG Oral Tablet KAVON ([facility]) Sertraline 100 MG Oral Tablet [facility]AVON ([facility]) Naproxen 500 MG Oral Tablet [facility]ON ([facility]) Methocarbamol 750 MG Oral Tablet KAVON ([facility]) cetirizine hydrochloride 10 MG Oral Tablet KAVON ([facility]) 24 HR Bupropion Hydrochloride 150 MG Extended Release Oral Tablet KAVON ([facility])
[2020-08-16 11:08] LABS: AMPHETAMINES LEVEL URINE NEGATIVE (NEGATIVE); BARBITURATES URINE NEGATIVE (NEGATIVE); BENZODIAZEPINES URINE NEGATIVE (NEGATIVE); CANNABINOIDS URINE POSITIVE (NEGATIVE); COCAINE METABOLITE URINE NEGATIVE (NEGATIVE); METHADONE URINE NEGATIVE (NEGATIVE); OPIATES URINE NEGATIVE (NEGATIVE); PHENCYCLIDINE URINE NEGATIVE (NEGATIVE)
[2020-08-16 11:25] LABS: ACETAMINOPHEN LEVEL < 2.0 UG/ML (10.0-30.0); ALBUMIN 3.7 GM/DL (3.2-5.2); ALT/SGPT 23 U/L (12-78); BILIRUBIN,DIRECT < 0.1 MG/DL (0.0-0.2); BILIRUBIN,TOTAL 0.3 MG/DL (0.2-1.0); BLOOD UREA NITROGEN 9 MG/DL (7-18); CALCIUM LEVEL 8.3 MG/DL (8.5-10.1); CARBON DIOXIDE LEVEL 31 MEQ/L (21-32); CHLORIDE LEVEL 108 MEQ/L (98-107); CREATININE FOR GFR 1.01 MG/DL (0.70-1.30); ETHYL ALCOHOL (ETHANOL) < 0.003 % (0.000-0.010); GLOMERULAR FILTRATION RATE > 60.0 (>60); GLUCOSE, FASTING 115 MG/DL (70-100); POTASSIUM SERUM 3.7 MEQ/L (3.5-5.1); SALICYLATE LEVEL < 1.7 MG/DL (5.0-30.0); SODIUM LEVEL 143 MEQ/L (136-145); TOTAL PROTEIN 6.5 GM/DL (6.4-8.2)
--- NOTE | 2020-08-16 18:23 | ECGEPIP ---
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
[2020-08-16 19:30] LABS: RSV AMPLIFICATION NEGATIVE (NEGATIVE)
[2020-08-17 02:09] VITALS: BP 132/84
== END 2020-08-17 02:17 ==
LOC: M ED 09:59
DX: R45.851 Suicidal ideations (principal); F17.210 Nicotine dependence, cigarettes, uncomplicated; F12.20 Cannabis dependence, uncomplicated
CPT/HCPCS: 36415; 80048; 80076; 80307; 84443; 85027; 87631; 93005; 99284; G0480

== ENCOUNTER 2020-08-26 15:08 | Emergency (ER) | payer MEDICAID, OTHER ==
[~2020-08-26] VITALS: Ht 170.2 cm; Wt 92.0 kg
[~2020-08-26 15:08] MED LIST changes: -METH-1165 PO; +METH750T2 PO
[2020-08-26] MEDS ORDERED: ZOLO100T PO (15:39)
[2020-08-26 16:11] LABS: HEMATOCRIT 41.9 % (42.0-52.0); HEMOGLOBIN 14.6 g/dl (13.5-17.5); MEAN CORPUSCULAR HEMOGLOBIN 31.4 pg (27.0-33.0); MEAN CORPUSCULAR HGB CONC 34.8 g/dl (32.0-36.5); MEAN CORPUSCULAR VOLUME 90.1 fl (80.0-96.0); PLATELET COUNT, AUTOMATED 173 10^3/uL (150-450); RED BLOOD COUNT 4.65 10^6/uL (4.30-6.10); WHITE BLOOD COUNT 7.1 10^3/uL (4.0-10.0)
[2020-08-26 16:47] LABS: ACETAMINOPHEN LEVEL < 2.0 UG/ML (10.0-30.0); ALBUMIN 4.3 GM/DL (3.2-5.2); ALT/SGPT 21 U/L (12-78); BILIRUBIN,DIRECT 0.1 MG/DL (0.0-0.2); BILIRUBIN,TOTAL 0.2 MG/DL (0.2-1.0); BLOOD UREA NITROGEN 17 MG/DL (7-18); CALCIUM LEVEL 9.2 MG/DL (8.5-10.1); CARBON DIOXIDE LEVEL 29 MEQ/L (21-32); CHLORIDE LEVEL 103 MEQ/L (98-107); CREATININE FOR GFR 0.92 MG/DL (0.70-1.30); ETHYL ALCOHOL (ETHANOL) < 0.003 % (0.000-0.010); GLOMERULAR FILTRATION RATE > 60.0 (>60); GLUCOSE, FASTING 96 MG/DL (70-100); POTASSIUM SERUM 4.1 MEQ/L (3.5-5.1); SALICYLATE LEVEL < 1.7 MG/DL (5.0-30.0); SODIUM LEVEL 140 MEQ/L (136-145); TOTAL PROTEIN 7.6 GM/DL (6.4-8.2)
[2020-08-26 17:12] LABS: AMPHETAMINES LEVEL URINE NEGATIVE (NEGATIVE); BARBITURATES URINE NEGATIVE (NEGATIVE); BENZODIAZEPINES URINE NEGATIVE (NEGATIVE); CANNABINOIDS URINE POSITIVE (NEGATIVE); COCAINE METABOLITE URINE NEGATIVE (NEGATIVE); METHADONE URINE NEGATIVE (NEGATIVE); OPIATES URINE NEGATIVE (NEGATIVE); PHENCYCLIDINE URINE NEGATIVE (NEGATIVE)
[2020-08-26 19:28] LABS: RSV AMPLIFICATION NEGATIVE (NEGATIVE)
[2020-08-26] MEDS ORDERED: GABA-1171 PO (23:30)
[2020-08-27] MEDS: GABAPENTIN 100 MG CAP PO SCH ×2 (12:17→21:26)
[2020-08-27] MEDS: SERTRALINE 100 MG TAB PO SCH ×3 (12:17→21:26)
[2020-08-28] MEDS: SERTRALINE 100 MG TAB PO SCH (09:25)
[2020-08-28] MEDS: GABAPENTIN 100 MG CAP PO SCH ×2 (09:25→21:37)
--- NOTE | 2020-08-28 14:30 | ECGEPIP ---
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
[2020-08-29] MEDS: GABAPENTIN 100 MG CAP PO SCH ×2 (08:47→21:40)
[2020-08-29] MEDS: SERTRALINE 100 MG TAB PO SCH (08:47)
[2020-08-30] MEDS: SERTRALINE 100 MG TAB PO SCH (09:50)
[2020-08-30] MEDS: GABAPENTIN 100 MG CAP PO SCH (09:50)
[2020-08-30 15:23] VITALS: BP 136/84
== END 2020-08-30 15:25 ==
LOC: M ED 15:08
DX: R45.851 Suicidal ideations (principal); F32.9 Major depressive disorder, single episode, unspecified; F17.200 Nicotine dependence, unspecified, uncomplicated; Z79.899 Other long term (current) drug therapy
CPT/HCPCS: 80048; 80076; 80307; 84443; 85027; 87631; 93005; 99285; G0480

== ENCOUNTER → 2021-12-18 | Outpatient (CLI) | payer OTHER ==
[~2021-12-18] MED LIST changes: +GABA-1171 PO; +METH-1165 PO; -METH750T2 PO; +ZOLO100T PO
[2021-12-18 10:14] LABS: BASO % 0.4 % (0.0-1.0); EOS # 0.1 10^3/uL (0.0-0.5); EOS % 2.8 % (0.0-3.0); HEMATOCRIT 42.8 % (42.0-52.0); HEMOGLOBIN 14.6 g/dl (13.5-17.5); LYMPH # 1.7 10^3/uL (1.5-5.0); LYMPH % 33.8 % (24.0-44.0); MEAN CORPUSCULAR HGB CONC 34.1 g/dl (32.0-36.5); MEAN CORPUSCULAR VOLUME 88.1 fl (80.0-96.0); MONO # 0.5 10^3/uL (0.0-0.8); MONO % 9.5 % (2.0-8.0); NEUTROPHILS # 2.7 10^3/uL (1.5-8.5); NEUTROPHILS % 53.3 % (36.0-66.0); PLATELET COUNT, AUTOMATED 160 10^3/uL (150-450); RED BLOOD COUNT 4.86 10^6/uL (4.30-6.10); WHITE BLOOD COUNT 5.1 10^3/uL (4.0-10.0)
[2021-12-18 11:01] LABS: ALBUMIN 4.2 GM/DL (3.2-5.2); ALT/SGPT 20 U/L (12-78); BILIRUBIN,TOTAL 0.5 MG/DL (0.2-1.0); BLOOD UREA NITROGEN 23 MG/DL (7-18); CALCIUM LEVEL 8.9 MG/DL (8.5-10.1); CARBON DIOXIDE LEVEL 28 MEQ/L (21-32); CHLORIDE LEVEL 110 MEQ/L (98-107); CHOLESTEROL LEVEL 156 MG/DL (<200); CREATININE FOR GFR 0.96 MG/DL (0.70-1.30); GLOMERULAR FILTRATION RATE > 60.0 (>60); GLUCOSE, FASTING 92 MG/DL (70-100); HDL CHOLESTEROL 40 MG/DL (>40); LDL CHOLESTEROL 107 MG/DL (<100); NON-HDL-C 116 MG/DL; POTASSIUM SERUM 4.2 MEQ/L (3.5-5.1); SODIUM LEVEL 141 MEQ/L (136-145); TOTAL PROTEIN 7.3 GM/DL (6.4-8.2); TRIGLYCERIDES LEVEL 46 MG/DL (<150)
== END ==
LOC: M LAB 09:37
PROVIDERS: ATTEND Psychiatry & Neurology Psychiatry
DX: F33.1 Major depressive disorder, recurrent, moderate (principal); F43.23 Adjustment disorder with mixed anxiety and depressed mood

== ENCOUNTER → 2022-03-05 | Outpatient (CLI) | payer MEDICAID, OTHER, SELFPAY ==
[~2022-03-05] MED LIST changes: +COLA100C5 PO; +LACT20EL PO
[2022-03-05 10:15] LABS: BASO % 0.5 % (0.0-1.0); EOS # 0.2 10^3/uL (0.0-0.5); EOS % 2.1 % (0.0-3.0); HEMATOCRIT 42.8 % (42.0-52.0); HEMOGLOBIN 14.4 g/dl (13.5-17.5); LYMPH # 1.6 10^3/uL (1.5-5.0); LYMPH % 22.2 % (24.0-44.0); MEAN CORPUSCULAR HGB CONC 33.6 g/dl (32.0-36.5); MEAN CORPUSCULAR VOLUME 86.3 fl (80.0-96.0); MONO # 0.6 10^3/uL (0.0-0.8); MONO % 8.4 % (2.0-8.0); NEUTROPHILS # 4.8 10^3/uL (1.5-8.5); NEUTROPHILS % 66.3 % (36.0-66.0); PLATELET COUNT, AUTOMATED 262 10^3/uL (150-450); RED BLOOD COUNT 4.96 10^6/uL (4.30-6.10); WHITE BLOOD COUNT 7.3 10^3/uL (4.0-10.0)
[2022-03-05 13:47] LABS: ALBUMIN 3.4 GM/DL (3.2-5.2); ALT/SGPT 54 U/L (12-78); BILIRUBIN,TOTAL 0.4 MG/DL (0.2-1.0); BLOOD UREA NITROGEN 17 MG/DL (7-18); CARBON DIOXIDE LEVEL 28 MEQ/L (21-32); CHLORIDE LEVEL 104 MEQ/L (98-107); CHOLESTEROL LEVEL 146 MG/DL (<200); CHOLESTEROL RISK RATIO 5.407 (<5); CREATININE FOR GFR 0.94 MG/DL (0.70-1.30); GLOMERULAR FILTRATION RATE > 60.0 (>60); GLUCOSE, FASTING 76 MG/DL (70-100); HDL CHOLESTEROL 27 MG/DL (>40); LDL CHOLESTEROL 106 MG/DL (<100); NON-HDL-C 119 MG/DL; POTASSIUM SERUM 4.3 MEQ/L (3.5-5.1); SODIUM LEVEL 137 MEQ/L (136-145); TOTAL PROTEIN 7.5 GM/DL (6.4-8.2); TRIGLYCERIDES LEVEL 67 MG/DL (<150)
[2022-03-06 01:22] LABS: HEMOGLOBIN A1c 5.2 %
== END ==
LOC: M LAB 09:32
PROVIDERS: ATTEND Psychiatry & Neurology Psychiatry
DX: F33.1 Major depressive disorder, recurrent, moderate (principal); F43.23 Adjustment disorder with mixed anxiety and depressed mood; F43.8 Other reactions to severe stress; F40.10 Social phobia, unspecified

== ENCOUNTER 2022-10-16 12:29 | Inpatient (IN) | payer MEDICAID, OTHER ==
[~2022-10-16] VITALS: Ht 170.2 cm; Wt 79.1 kg
[2022-10-16] MEDS: NICOTINE 21MG/24HR 1 EA TRANSDERMAL TD SCH (09:00)
[2022-10-16 14:20] LABS: HEMATOCRIT 46.4 % (42.0-52.0); MEAN CORPUSCULAR HEMOGLOBIN 30.7 pg (27.0-33.0); MEAN CORPUSCULAR HGB CONC 34.5 g/dl (32.0-36.5); MEAN CORPUSCULAR VOLUME 88.9 fl (80.0-96.0); PLATELET COUNT, AUTOMATED 196 10^3/uL (150-450); RED BLOOD COUNT 5.22 10^6/uL (4.30-6.10); WHITE BLOOD COUNT 8.4 10^3/uL (4.0-10.0)
[2022-10-16 14:44] LABS: ETHYL ALCOHOL (ETHANOL) 0.003 % (0.000-0.010)
[2022-10-16 14:45] LABS: ACETAMINOPHEN LEVEL < 2.0 UG/ML (10.0-20.0)
[2022-10-16 14:46] LABS: SALICYLATE LEVEL < 3.0 MG/DL (<30)
[2022-10-16 14:56] LABS: AMPHETAMINES LEVEL URINE NEGATIVE (NEGATIVE); BARBITURATES URINE NEGATIVE (NEGATIVE); BENZODIAZEPINES URINE NEGATIVE (NEGATIVE); COCAINE METABOLITE URINE NEGATIVE (NEGATIVE); METHADONE URINE NEGATIVE (NEGATIVE); OPIATES URINE NEGATIVE (NEGATIVE); PHENCYCLIDINE URINE NEGATIVE (NEGATIVE)
[2022-10-16 14:57] LABS: ALBUMIN 4.6 G/DL (3.2-5.2); ALKALINE PHOSPHATASE 97 U/L (46-116); ALT/SGPT 18 U/L (7.0-40); AST/SGOT 16 U/L (<34); BILIRUBIN,DIRECT 0.2 MG/DL (<0.4); BILIRUBIN,TOTAL 0.5 MG/DL (0.3-1.2); BLOOD UREA NITROGEN 20 MG/DL (9-23); CALCIUM LEVEL 9.5 MG/DL (8.5-10.1); CARBON DIOXIDE LEVEL 28 MMOL/L (20-31); CHLORIDE LEVEL 107 MMOL/L (98-107); CREATININE FOR GFR 0.96 MG/DL (0.70-1.30); GLOMERULAR FILTRATION RATE > 60.0 (>60); GLUCOSE, FASTING 85 MG/DL (60-100); POTASSIUM SERUM 4.4 MMOL/L (3.5-5.1); SODIUM LEVEL 139 MMOL/L (136-145); THYROID STIMULATING HORMONE 1.515 uIU/ML (0.55-4.78)
[2022-10-16 15:26] LABS: CANNABINOIDS URINE POSITIVE (NEGATIVE)
[2022-10-16 17:37] LABS: TOTAL PROTEIN 7.6 G/DL (5.7-8.2)
[2022-10-16] MEDS ORDERED: traZODone 50 MG TAB PO PRN (19:00)
[2022-10-16] MEDS ORDERED: OLANZapine ORAL DISINTEGRATING TAB 5MG PO PRN (19:00)
[2022-10-16] MEDS ORDERED: MOM 30ML SUSPENSION UDC PO PRN (19:00)
[2022-10-16] MEDS ORDERED: IBUPROFEN 400MG TAB PO PRN (19:00)
[2022-10-16] MEDS ORDERED: MAALOX 30 ML SUSP *UDC PO PRN (19:00)
[2022-10-16] MEDS ORDERED: diphenhydrAMINE 25MG CAP PO PRN (19:00)
[2022-10-16] MEDS ORDERED: BUSP10TA PO (19:44)
[2022-10-16] MEDS ORDERED: ARIP1TAB4 PO (19:44)
[2022-10-16] MEDS ORDERED: VENL75CA47 PO (19:44)
[2022-10-16] MEDS ORDERED: HOME MED LIST COMPLETE! XX SCH (19:45)
[2022-10-16] MEDS ORDERED: HYDR1CRE2 TOP (19:45)
[2022-10-16 21:42] VITALS: BP 116/86
[2022-10-16] MEDS: busPIRone 10 MG TAB PO SCH (21:52)
[2022-10-17 06:38] VITALS: BP 129/75
[2022-10-17] MEDS: NICOTINE 21MG/24HR 1 EA TRANSDERMAL TD SCH (07:58)
[2022-10-17] MEDS: VENLAFAXINE **XR** 75MG CAPSULE PO SCH (07:59)
[2022-10-17] MEDS: busPIRone 10 MG TAB PO SCH ×2 (08:00→21:26)
[2022-10-17] MEDS: ARIPiprazole 2 MG TAB PO SCH (08:00)
[2022-10-17 16:33] VITALS: BP 124/76
[2022-10-18 06:49] VITALS: BP 110/61
[2022-10-18] MEDS: NICOTINE 21MG/24HR 1 EA TRANSDERMAL TD SCH (07:53)
[2022-10-18] MEDS: ARIPiprazole 2 MG TAB PO SCH (07:54)
[2022-10-18] MEDS: busPIRone 10 MG TAB PO SCH ×2 (07:54→20:19)
[2022-10-18] MEDS: VENLAFAXINE **XR** 75MG CAPSULE PO SCH (07:54)
[2022-10-18 08:26] LABS: CHOLESTEROL RISK RATIO 4.96 (<5); LDL CHOLESTEROL 118.2 MG/DL (<100)
[2022-10-18 16:37] VITALS: BP 126/72
[2022-10-19 06:32] VITALS: BP 119/63
[2022-10-19] MEDS: busPIRone 10 MG TAB PO SCH ×2 (08:03→20:02)
[2022-10-19] MEDS: ARIPiprazole 2 MG TAB PO SCH (08:03)
[2022-10-19] MEDS: VENLAFAXINE **XR** 75MG CAPSULE PO SCH (08:03)
[2022-10-19] MEDS: NICOTINE 21MG/24HR 1 EA TRANSDERMAL TD SCH (08:05)
[2022-10-19 15:29] VITALS: BP 138/93
[2022-10-20 06:25] VITALS: BP 112/61
[2022-10-20] MEDS: VENLAFAXINE **XR** 75MG CAPSULE PO SCH (08:08)
[2022-10-20] MEDS: busPIRone 10 MG TAB PO SCH (08:08)
[2022-10-20] MEDS: ARIPiprazole 2 MG TAB PO SCH (08:08)
[2022-10-20] MEDS: NICOTINE 21MG/24HR 1 EA TRANSDERMAL TD SCH (09:00)
== END 2022-10-20 10:59 | disposition home or self-care (01) | DRG 751 ==
LOC: M ED 12:29 → M ED INP 18:57 → M PSY 21:21
PROVIDERS: ADMIT Psychiatry & Neurology Psychiatry; ATTEND Psychiatry & Neurology Psychiatry
DX: F33.1 Major depressive disorder, recurrent, moderate (principal); M41.9 Scoliosis, unspecified; R45.850 Homicidal ideations; A08.4 Viral intestinal infection, unspecified; F17.200 Nicotine dependence, unspecified, uncomplicated; Z79.899 Other long term (current) drug therapy; Z91.51 Personal history of suicidal behavior; Z81.8 Family history of other mental and behavioral disorders

== ENCOUNTER 2022-11-01 16:01 | Emergency (ER) | payer MEDICAID ==
[~2022-11-01] VITALS: Ht 170.2 cm; Wt 82.0 kg
[~2022-11-01 16:01] MED LIST changes: +ARIP1TAB4 PO; +BUSP10TA PO; +HYDR1CRE2 TOP; +VENL75CA47 PO
[2022-11-01] MEDS ORDERED: MAGNESIUM CITRATE 300ML BTL PO ONE (20:05)
[2022-11-01] MEDS ORDERED: MIRA3350 PO (20:35)
[2022-11-01 20:45] VITALS: BP 120/75
[2022-11-01 21:07] LABS: HEPATITIS B SURFACE ANTIGEN NEGATIVE (NEGATIVE)
[2022-11-01 21:19] LABS: HIV 1&2 SCREEN CENTAUR NEGATIVE (NEGATIVE)
[2022-11-01 21:27] LABS: HEPATITIS B CORE ANTIBODY IGM NEGATIVE (NEGATIVE)
[2022-11-01 21:57] LABS: GC DNA AMPLIFICATION NEGATIVE (NEGATIVE)
== END 2022-11-01 20:50 | disposition home or self-care (01) ==
LOC: M ED 16:01
DX: K59.00 Constipation, unspecified (principal); A51.31 Condyloma latum; F17.200 Nicotine dependence, unspecified, uncomplicated; Z79.899 Other long term (current) drug therapy

== ENCOUNTER 2023-07-03 21:59 | Inpatient (IN) | payer MEDICAID, OTHER ==
[~2023-07-03] VITALS: Ht 170.2 cm; Wt 83.2 kg
[~2023-07-03 21:59] MED LIST changes: +MIRA3350 PO
[2023-07-03] MEDS ORDERED: TRAZ-257 PO (22:17)
[2023-07-03 23:28] LABS: AMPHETAMINES LEVEL URINE NEGATIVE (NEGATIVE); BARBITURATES URINE NEGATIVE (NEGATIVE); BENZODIAZEPINES URINE NEGATIVE (NEGATIVE); COCAINE METABOLITE URINE NEGATIVE (NEGATIVE); METHADONE URINE NEGATIVE (NEGATIVE); OPIATES URINE NEGATIVE (NEGATIVE); PHENCYCLIDINE URINE NEGATIVE (NEGATIVE)
[2023-07-03 23:29] LABS: CANNABINOIDS URINE POSITIVE (NEGATIVE)
[2023-07-03 23:30] LABS: ETHYL ALCOHOL (ETHANOL) 0.004 % (0.000-0.010)
[2023-07-03 23:32] LABS: ALBUMIN 4.1 G/DL (3.2-5.2); ALKALINE PHOSPHATASE 100 U/L (46-116); ALT/SGPT 17 U/L (7.0-40); AST/SGOT 15 U/L (<34); BILIRUBIN,DIRECT < 0.1 MG/DL (<0.4); BILIRUBIN,TOTAL 0.3 MG/DL (0.3-1.2); BLOOD UREA NITROGEN 19 MG/DL (9-23); CARBON DIOXIDE LEVEL 29 MMOL/L (20-31); CHLORIDE LEVEL 105 MMOL/L (98-107); CREATININE FOR GFR 0.96 MG/DL (0.70-1.30); GLOMERULAR FILTRATION RATE > 60.0 (>60); GLUCOSE, FASTING 94 MG/DL (60-100); HEMATOCRIT 40.9 % (42.0-52.0); HEMOGLOBIN 14.5 g/dl (13.5-17.5); MEAN CORPUSCULAR HEMOGLOBIN 31.2 pg (27.0-33.0); MEAN CORPUSCULAR HGB CONC 35.5 g/dl (32.0-36.5); PLATELET COUNT, AUTOMATED 189 10^3/uL (150-450); POTASSIUM SERUM 3.8 MMOL/L (3.5-5.1); RED BLOOD COUNT 4.65 10^6/uL (4.30-6.10); SALICYLATE LEVEL < 3.0 MG/DL (<30); SODIUM LEVEL 141 MMOL/L (136-145); TOTAL PROTEIN 6.9 G/DL (5.7-8.2); WHITE BLOOD COUNT 7.6 10^3/uL (4.0-10.0)
[2023-07-03 23:34] LABS: THYROID STIMULATING HORMONE 2.469 uIU/ML (0.55-4.78)
[2023-07-04] MEDS ORDERED: VENL75TA2 PO (06:53)
[2023-07-04] MEDS ORDERED: ARIP1TAB PO (06:53)
[2023-07-04] MEDS ORDERED: HYDR1CAP25 PO (06:54)
[2023-07-04] MEDS ORDERED: HOME MED LIST COMPLETE! XX SCH (06:55)
[2023-07-04] MEDS ORDERED: MAALOX 30 ML SUSP *UDC PO PRN (07:10)
[2023-07-04] MEDS ORDERED: IBUPROFEN 400MG TAB PO PRN (07:10)
[2023-07-04] MEDS ORDERED: MOM 30ML SUSPENSION UDC PO PRN (07:10)
[2023-07-04] MEDS ORDERED: ACETAMINOPHEN TAB 650MG DOSE (2X325MG) PO PRN (07:10)
[2023-07-04] MEDS ORDERED: diphenhydrAMINE 25MG CAP PO PRN (07:10)
[2023-07-04] MEDS ORDERED: VENLAFAXINE 37.5 MG TAB PO SCH (09:00)
[2023-07-04] MEDS: ARIPiprazole 10 MG TAB PO SCH (09:50)
[2023-07-04] MEDS: busPIRone 10 MG TAB PO SCH ×2 (09:50→21:42)
[2023-07-04 18:19] VITALS: BP 129/84; TEMP 98.5
[2023-07-04] MEDS: traZODone 100 MG TAB PO SCH (21:42)
[2023-07-04] MEDS: PILL CUTTER 1 EACH XX PRN (21:42)
[2023-07-05 06:32] VITALS: BP 115/71; TEMP 99.2; O2SAT 98
[2023-07-05] MEDS: ARIPiprazole 10 MG TAB PO SCH (08:43)
[2023-07-05] MEDS: busPIRone 10 MG TAB PO SCH ×2 (08:43→21:01)
[2023-07-05] MEDS: VENLAFAXINE **XR** 75MG CAPSULE PO SCH (08:43)
[2023-07-05 11:10] VITALS: TEMP 97.9
[2023-07-05 14:00] VITALS: BP 139/90; TEMP 98.5; O2SAT 99
[2023-07-05] MEDS: PILL CUTTER 1 EACH XX PRN (21:01)
[2023-07-05] MEDS: traZODone 100 MG TAB PO SCH (21:01)
[2023-07-06 06:35] VITALS: BP 109/64; TEMP 98.3; O2SAT 100
[2023-07-06] MEDS: VENLAFAXINE **XR** 75MG CAPSULE PO SCH (08:34)
[2023-07-06] MEDS: busPIRone 10 MG TAB PO SCH (08:34)
[2023-07-06] MEDS: ARIPiprazole 10 MG TAB PO SCH (08:34)
[2023-07-06 10:00] VITALS: BP 109/64; TEMP 98.3; O2SAT 100
[2023-07-06] MEDS ORDERED: TRAZ-257 PO (10:58)
[2023-07-06] MEDS ORDERED: BUSP10TA PO (10:58)
[2023-07-06] MEDS ORDERED: VENL75CA47 PO (10:58)
[2023-07-06] MEDS ORDERED: ARIP1TAB PO (10:58)
[2023-07-07] MEDS ORDERED: BUSP10TA PO (22:44)
[2023-07-07] MEDS ORDERED: VENL75CA2 PO (22:44)
[2023-07-07] MEDS ORDERED: TRAZ-257 PO (22:44)
[2023-07-07] MEDS ORDERED: ARIP1TAB PO (22:44)
== END 2023-07-06 12:37 | disposition home or self-care (01) | DRG 751 ==
LOC: M ED 21:59 → M ED INP 07-04 07:09 → M PSY 07-04 08:47
PROVIDERS: ADMIT Psychiatry & Neurology Psychiatry; ATTEND Student in an Organized Health Care Education/Training Program
DX: F33.2 Major depressive disorder, recurrent severe without psychotic features (principal); M41.9 Scoliosis, unspecified; R45.851 Suicidal ideations; F41.1 Generalized anxiety disorder; F17.210 Nicotine dependence, cigarettes, uncomplicated; F12.10 Cannabis abuse, uncomplicated; G89.29 Other chronic pain; F65.4 Pedophilia; Z91.51 Personal history of suicidal behavior; Z59.02 Unsheltered homelessness; Z81.8 Family history of other mental and behavioral disorders; Z65.2 Problems related to release from prison; Z79.899 Other long term (current) drug therapy; M25.561 Pain in right knee

== ENCOUNTER 2023-07-07 21:01 | Emergency (ER) | payer MEDICAID ==
[~2023-07-07 21:01] MED LIST changes: +ARIP1TAB PO; +HYDR1CAP25 PO; +TRAZ-257 PO; +VENL75TA2 PO
[2023-07-07] MEDS ORDERED: VENL75CA2 PO (22:44)
[2023-07-07] MEDS ORDERED: TRAZ-257 PO (22:44)
[2023-07-07] MEDS ORDERED: BUSP10TA PO (22:44)
[2023-07-07] MEDS ORDERED: ARIP1TAB PO (22:44)
[2023-07-08] MEDS ORDERED: HOME MED LIST COMPLETE! XX SCH (00:10)
[2023-07-08] MEDS ORDERED: ARIPiprazole 10 MG TAB PO SCH (09:00)
[2023-07-08] MEDS ORDERED: busPIRone 10 MG TAB PO SCH (09:00)
[2023-07-08] MEDS ORDERED: VENLAFAXINE **XR** 75MG CAPSULE PO SCH (09:00)
[2023-07-08 16:39] VITALS: BP 137/75; TEMP 98.1; O2SAT 95
[2023-07-08] MEDS ORDERED: traZODone 100 MG TAB PO SCH (21:00)
== END 2023-07-08 16:45 | disposition home or self-care (01) ==
LOC: M ED 21:01
DX: F43.0 Acute stress reaction (principal); F32.A Depression, unspecified; F31.9 Bipolar disorder, unspecified; M41.9 Scoliosis, unspecified; F17.200 Nicotine dependence, unspecified, uncomplicated; Z79.899 Other long term (current) drug therapy

== ENCOUNTER 2023-09-18 00:11 | Inpatient (IN) | payer MEDICAID, OTHER ==
[~2023-09-18 00:11] MED LIST changes: +VENL75CA2 PO
[2023-09-18 01:25] LABS: AMPHETAMINES LEVEL URINE NEGATIVE (NEGATIVE); BARBITURATES URINE NEGATIVE (NEGATIVE); BENZODIAZEPINES URINE NEGATIVE (NEGATIVE); CANNABINOIDS URINE POSITIVE (NEGATIVE); COCAINE METABOLITE URINE NEGATIVE (NEGATIVE); METHADONE URINE NEGATIVE (NEGATIVE); OPIATES URINE NEGATIVE (NEGATIVE); PHENCYCLIDINE URINE NEGATIVE (NEGATIVE)
[2023-09-18 01:27] LABS: ETHYL ALCOHOL (ETHANOL) < 0.003 % (0.000-0.010)
[2023-09-18 01:28] LABS: SALICYLATE LEVEL < 3.0 MG/DL (<30)
[2023-09-18 01:29] LABS: ALBUMIN 4.2 G/DL (3.2-5.2); ALKALINE PHOSPHATASE 94 U/L (46-116); ALT/SGPT 18 U/L (7.0-40); AST/SGOT 13 U/L (<34); BILIRUBIN,DIRECT 0.1 MG/DL (<0.4); BILIRUBIN,TOTAL 0.3 MG/DL (0.3-1.2); BLOOD UREA NITROGEN 25 MG/DL (9-23); CALCIUM LEVEL 8.8 MG/DL (8.5-10.1); CARBON DIOXIDE LEVEL 24 MMOL/L (20-31); CHLORIDE LEVEL 107 MMOL/L (98-107); CREATININE FOR GFR 0.98 MG/DL (0.70-1.30); GLOMERULAR FILTRATION RATE > 60.0 (>60); GLUCOSE, FASTING 113 MG/DL (60-100); POTASSIUM SERUM 3.9 MMOL/L (3.5-5.1); SODIUM LEVEL 139 MMOL/L (136-145); TOTAL PROTEIN 7.2 G/DL (5.7-8.2)
[2023-09-18 01:30] LABS: THYROID STIMULATING HORMONE 2.615 uIU/ML (0.55-4.78)
[2023-09-18 01:31] LABS: HEMATOCRIT 41.7 % (42.0-52.0); HEMOGLOBIN 14.7 g/dl (13.5-17.5); MEAN CORPUSCULAR HEMOGLOBIN 30.1 pg (27.0-33.0); MEAN CORPUSCULAR HGB CONC 35.3 g/dl (32.0-36.5); MEAN CORPUSCULAR VOLUME 85.3 fl (80.0-96.0); PLATELET COUNT, AUTOMATED 228 10^3/uL (150-450); RED BLOOD COUNT 4.89 10^6/uL (4.30-6.10); WHITE BLOOD COUNT 9.6 10^3/uL (4.0-10.0)
[2023-09-18] MEDS ORDERED: IBUPROFEN 400MG TAB PO PRN (03:55)
[2023-09-18] MEDS ORDERED: MOM 30ML SUSPENSION UDC PO PRN (03:55)
[2023-09-18] MEDS ORDERED: OLANZapine 5 MG TAB PO PRN (03:55)
[2023-09-18] MEDS ORDERED: diphenhydrAMINE 25MG CAP PO PRN (03:55)
[2023-09-18] MEDS ORDERED: MAALOX 30 ML SUSP *UDC PO PRN (03:55)
[2023-09-18] MEDS ORDERED: ACETAMINOPHEN TAB 650MG DOSE (2X325MG) PO PRN (03:55)
[2023-09-18 06:42] VITALS: BP 105/58; TEMP 97.9; O2SAT 98
[2023-09-18] MEDS: PILL CUTTER 1 EACH XX PRN (09:09)
[2023-09-18] MEDS: busPIRone 5 MG TAB PO SCH (09:09)
[2023-09-18] MEDS: VENLAFAXINE **XR** 75MG CAPSULE PO SCH (09:09)
[2023-09-18] MEDS ORDERED: TRAZ150T90 PO (10:55)
[2023-09-18] MEDS ORDERED: LAMO25TA4 PO (10:55)
[2023-09-18] MEDS ORDERED: HOME MED LIST COMPLETE! XX SCH (11:00)
[2023-09-18 16:15] VITALS: BP 126/80; TEMP 97.6; O2SAT 96
[2023-09-18] MEDS: ARIPiprazole 10 MG TAB PO SCH (21:00)
[2023-09-19 06:26] VITALS: BP 104/67; TEMP 97.4; O2SAT 97
[2023-09-19 06:45] LABS: CHOLESTEROL RISK RATIO 4.95 (<5); HDL CHOLESTEROL 32.3 MG/DL (>40); LDL CHOLESTEROL 109.3 MG/DL (<100); NON-HDL-C 127.7 MG/DL
[2023-09-19] MEDS: OLANZapine 5 MG TAB PO SCH (09:20)
[2023-09-19 16:04] VITALS: BP 130/77; TEMP 98.5; O2SAT 99
[2023-09-20 06:22] VITALS: BP 119/72; TEMP 97.7; O2SAT 98
[2023-09-20 17:09] VITALS: BP 123/74; TEMP 98.1; O2SAT 98
[2023-09-20] MEDS: traZODone 50 MG TAB PO PRN (20:20)
[2023-09-21 06:21] VITALS: BP 113/54; TEMP 97.6; O2SAT 97
[2023-09-21 15:49] VITALS: BP 124/76; TEMP 97.9; O2SAT 98
[2023-09-21 23:45] VITALS: BP 99/54; TEMP 97; O2SAT 97
[2023-09-22 06:29] VITALS: BP 113/56; TEMP 97.5; O2SAT 100
[2023-09-22] MEDS ORDERED: BUSP5TA PO (09:34)
[2023-09-22] MEDS ORDERED: TRAZ-252 PO (09:34)
[2023-09-22] MEDS ORDERED: OLAN1TAB16 PO (09:34)
== END 2023-09-22 12:21 | disposition home or self-care (01) | DRG 754 ==
LOC: M ED 00:11 → M ED INP 03:55 → M PSY 04:33
PROVIDERS: ADMIT Student in an Organized Health Care Education/Training Program; ATTEND Student in an Organized Health Care Education/Training Program
DX: F32.9 Major depressive disorder, single episode, unspecified (principal); R45.850 Homicidal ideations; R45.851 Suicidal ideations; Z91.148 Patient's other noncompliance with medication regimen for other reason; Z91.51 Personal history of suicidal behavior; Z81.8 Family history of other mental and behavioral disorders; Z65.2 Problems related to release from prison; F17.290 Nicotine dependence, other tobacco product, uncomplicated; F41.1 Generalized anxiety disorder; F65.9 Paraphilia, unspecified; Z79.899 Other long term (current) drug therapy; M25.561 Pain in right knee; G89.29 Other chronic pain; M54.9 Dorsalgia, unspecified

== ENCOUNTER 2023-12-05 19:00 | Inpatient (IN) | payer MEDICAID ==
[~2023-12-05] VITALS: Ht 170.2 cm; Wt 81.8 kg
[~2023-12-05 19:00] MED LIST changes: +BUSP5TA PO; +LAMO25TA4 PO; +OLAN1TAB16 PO; +TRAZ-252 PO; +TRAZ150T90 PO
[2023-12-05 19:43] LABS: HEMATOCRIT 42.5 % (42.0-52.0); HEMOGLOBIN 14.7 g/dl (13.5-17.5); MEAN CORPUSCULAR HEMOGLOBIN 30.6 pg (27.0-33.0); MEAN CORPUSCULAR HGB CONC 34.6 g/dl (32.0-36.5); MEAN CORPUSCULAR VOLUME 88.4 fl (80.0-96.0); PLATELET COUNT, AUTOMATED 191 10^3/uL (150-450); RED BLOOD COUNT 4.81 10^6/uL (4.30-6.10); WHITE BLOOD COUNT 7.7 10^3/uL (4.0-10.0)
[2023-12-05 20:13] LABS: AMPHETAMINES LEVEL URINE NEGATIVE (NEGATIVE); BARBITURATES URINE NEGATIVE (NEGATIVE); BENZODIAZEPINES URINE NEGATIVE (NEGATIVE); COCAINE METABOLITE URINE NEGATIVE (NEGATIVE); METHADONE URINE NEGATIVE (NEGATIVE); OPIATES URINE NEGATIVE (NEGATIVE); PHENCYCLIDINE URINE NEGATIVE (NEGATIVE)
[2023-12-05 20:14] LABS: CANNABINOIDS URINE POSITIVE (NEGATIVE)
[2023-12-05 20:15] LABS: ETHYL ALCOHOL (ETHANOL) < 0.003 % (0.000-0.010)
[2023-12-05 20:17] LABS: ALBUMIN 3.6 G/DL (3.2-5.2); ALKALINE PHOSPHATASE 84 U/L (46-116); ALT/SGPT 22 U/L (7.0-40); AST/SGOT 13 U/L (<34); BILIRUBIN,DIRECT < 0.1 MG/DL (<0.4); BILIRUBIN,TOTAL 0.3 MG/DL (0.3-1.2); BLOOD UREA NITROGEN 23 MG/DL (9-23); CALCIUM LEVEL 9.1 MG/DL (8.5-10.1); CARBON DIOXIDE LEVEL 27 MMOL/L (20-31); CHLORIDE LEVEL 109 MMOL/L (98-107); GLOMERULAR FILTRATION RATE > 60.0 (>60); GLUCOSE, FASTING 89 MG/DL (60-100); SALICYLATE LEVEL < 3.0 MG/DL (<30); SODIUM LEVEL 141 MMOL/L (136-145); TOTAL PROTEIN 6.6 G/DL (5.7-8.2)
[2023-12-05 20:19] LABS: THYROID STIMULATING HORMONE 0.779 uIU/ML (0.55-4.78)
[2023-12-05] MEDS: hydrOXYzine 50 MG TAB PO STA (20:59)
[2023-12-05] MEDS: CLOTRIMAZOLE 1% TOPICAL CREAM 30GM TOP SCH (20:59)
[2023-12-05] MEDS ORDERED: MED REC IN PROGRESS XX SCH (21:45)
[2023-12-05] MEDS ORDERED: ARIP10TA32 PO (23:36)
[2023-12-05] MEDS ORDERED: TRAZ1TAB14 PO (23:36)
[2023-12-05] MEDS ORDERED: HYDR-3363 PO (23:36)
[2023-12-05] MEDS ORDERED: HOME MED LIST COMPLETE! XX SCH (23:40)
[2023-12-06] MEDS ORDERED: MAALOX 30 ML SUSP *UDC PO PRN (12:30)
[2023-12-06] MEDS ORDERED: IBUPROFEN 400MG TAB PO PRN (12:30)
[2023-12-06] MEDS ORDERED: MOM 30ML SUSPENSION UDC PO PRN (12:30)
[2023-12-06] MEDS ORDERED: ACETAMINOPHEN TAB 650MG DOSE (2X325MG) PO PRN (12:30)
[2023-12-06] MEDS ORDERED: diphenhydrAMINE 25MG CAP PO PRN (12:30)
[2023-12-06 13:32] VITALS: BP 132/90; TEMP 96.9; O2SAT 99
[2023-12-06] MEDS: NICOTINE 21MG/24HR 1 EA TRANSDERMAL TD SCH (17:34)
[2023-12-06] MEDS: traZODone 50 MG TAB PO PRN (20:22)
[2023-12-06] MEDS: CLOTRIMAZOLE 1% TOPICAL CREAM 30GM TOP SCH (20:22)
[2023-12-07 06:15] VITALS: BP 105/63; TEMP 97.4; O2SAT 98
[2023-12-07] MEDS ORDERED: VENLAFAXINE **XR** 75MG CAPSULE PO SCH (09:00)
[2023-12-07] MEDS: VENLAFAXINE **XR** 75MG CAPSULE PO SCH (09:01)
[2023-12-07] MEDS: ARIPiprazole 10 MG TAB PO SCH (09:01)
[2023-12-07 18:38] VITALS: BP 145/85; TEMP 97.4
[2023-12-08 06:27] VITALS: BP 122/96; TEMP 97.8; O2SAT 99
[2023-12-08] MEDS: busPIRone 10 MG TAB PO SCH (12:31)
[2023-12-08 18:13] VITALS: BP 132/82; TEMP 97
[2023-12-09 06:32] VITALS: BP 118/69; TEMP 98.1; O2SAT 98
== END 2023-12-09 13:40 | disposition home or self-care (01) | DRG 754 ==
LOC: EDBD 19:00 → M ED 19:00 → M PSY 12-06 12:29
PROVIDERS: ADMIT Student in an Organized Health Care Education/Training Program; ATTEND Psychiatry & Neurology Child & Adolescent Psychiatry
DX: F32.A Depression, unspecified (principal); Z59.00 Homelessness unspecified; F17.210 Nicotine dependence, cigarettes, uncomplicated; M41.9 Scoliosis, unspecified; Z79.899 Other long term (current) drug therapy; Z56.0 Unemployment, unspecified

== ENCOUNTER 2023-12-25 14:59 | Emergency (ER) | payer MEDICAID, OTHER ==
[~2023-12-25 14:59] MED LIST changes: +ARIP10TA32 PO; +HYDR-3363 PO; +TRAZ1TAB14 PO
[2023-12-25 15:36] LABS: HEMATOCRIT 43.3 % (42.0-52.0); HEMOGLOBIN 15.3 g/dl (13.5-17.5); MEAN CORPUSCULAR HGB CONC 35.3 g/dl (32.0-36.5); MEAN CORPUSCULAR VOLUME 87.8 fl (80.0-96.0); PLATELET COUNT, AUTOMATED 201 10^3/uL (150-450); RED BLOOD COUNT 4.93 10^6/uL (4.30-6.10); WHITE BLOOD COUNT 7.8 10^3/uL (4.0-10.0)
[2023-12-25 15:55] LABS: ETHYL ALCOHOL (ETHANOL) < 0.003 % (0.000-0.010)
[2023-12-25 15:57] LABS: ALBUMIN 4.1 G/DL (3.2-5.2); ALKALINE PHOSPHATASE 96 U/L (46-116); ALT/SGPT 12 U/L (7.0-40); AST/SGOT < 8 U/L (<34); BILIRUBIN,DIRECT 0.1 MG/DL (<0.4); BILIRUBIN,TOTAL 0.4 MG/DL (0.3-1.2); BLOOD UREA NITROGEN 17 MG/DL (9-23); CALCIUM LEVEL 9.1 MG/DL (8.5-10.1); CARBON DIOXIDE LEVEL 27 MMOL/L (20-31); CHLORIDE LEVEL 111 MMOL/L (98-107); CREATININE FOR GFR 0.92 MG/DL (0.70-1.30); GLOMERULAR FILTRATION RATE > 60.0 (>60); GLUCOSE, FASTING 91 MG/DL (60-100); POTASSIUM SERUM 4.4 MMOL/L (3.5-5.1); SALICYLATE LEVEL < 3.0 MG/DL (<30); SODIUM LEVEL 142 MMOL/L (136-145)
[2023-12-25 15:59] LABS: THYROID STIMULATING HORMONE 0.719 uIU/ML (0.55-4.78)
[2023-12-25 16:54] LABS: AMPHETAMINES LEVEL URINE NEGATIVE (NEGATIVE); BARBITURATES URINE NEGATIVE (NEGATIVE); BENZODIAZEPINES URINE NEGATIVE (NEGATIVE); COCAINE METABOLITE URINE NEGATIVE (NEGATIVE); METHADONE URINE NEGATIVE (NEGATIVE); OPIATES URINE NEGATIVE (NEGATIVE); PHENCYCLIDINE URINE NEGATIVE (NEGATIVE)
[2023-12-25 16:57] LABS: CANNABINOIDS URINE POSITIVE (NEGATIVE)
[2023-12-25] MEDS ORDERED: KETO2CR TOP (19:28)
[2023-12-25] MEDS ORDERED: HOME MED LIST COMPLETE! XX SCH (19:30)
[2023-12-26 07:04] LABS: APPEARANCE, URINE HAZY (CLEAR); BACTERIA, URINE AUTO NEGATIVE (NEGATIVE); BILIRUBIN, URINE AUTO NEGATIVE (NEGATIVE); BLOOD, URINE BLOOD NEGATIVE (NEGATIVE); COLOR, URINE AMBER (YELLOW); GLUCOSE, URINE (UA) AUTO NEGATIVE (NEGATIVE); KETONE, URINE AUTO NEGATIVE (NEGATIVE); LEUKOCYTE ESTERASE, URINE AUTO NEGATIVE (NEGATIVE); MUCUS, URINE SMALL (NEGATIVE); NITRITE, URINE AUTO NEGATIVE (NEGATIVE); PROTEIN, URINE AUTO 1+ mg/dL (NEGATIVE); RBC, URINE AUTO 1 /HPF (0-3); SPECIFIC GRAVITY URINE AUTO 1.027 (1.002-1.035); SQUAMOUS EPITHELIAL CELL UR AU 0 /HPF (0-6); WBC, URINE AUTO 1 /HPF (0-3)
[2023-12-26] MEDS ORDERED: KETOCONAZOLE 2% CREAM TOP SCH (09:00)
[2023-12-26] MEDS: ARIPiprazole 10 MG TAB PO SCH (09:39)
[2023-12-26] MEDS: busPIRone 10 MG TAB PO SCH (09:39)
[2023-12-26] MEDS: VENLAFAXINE **XR** 75MG CAPSULE PO SCH (09:39)
[2023-12-26 12:00] VITALS: BP 116/75; TEMP 98.3; O2SAT 100
[2023-12-26] MEDS ORDERED: traZODone 50 MG TAB PO SCH (21:00)
[2023-12-27] MEDS ORDERED: KETOCONAZOLE 2% CREAM TOP SCH (09:00)
== END 2023-12-26 12:10 ==
LOC: M ED 14:59
DX: R45.851 Suicidal ideations (principal); I45.19 Other right bundle-branch block; I45.81 Long QT syndrome; F41.9 Anxiety disorder, unspecified; F32.A Depression, unspecified; F17.210 Nicotine dependence, cigarettes, uncomplicated; Z79.899 Other long term (current) drug therapy

== ENCOUNTER 2023-12-31 00:36 | Emergency (ER) | payer OTHER ==
[~2023-12-31] VITALS: Ht 177.8 cm; Wt 79.5 kg
[~2023-12-31 00:36] MED LIST changes: +KETO2CR TOP
[2023-12-31 01:11] LABS: BASO % 0.4 % (0.0-1.0); HEMATOCRIT 44.4 % (42.0-52.0); HEMOGLOBIN 15.6 g/dl (13.5-17.5); LYMPH # 2.2 10^3/uL (1.5-5.0); MEAN CORPUSCULAR HEMOGLOBIN 30.8 pg (27.0-33.0); MEAN CORPUSCULAR HGB CONC 35.1 g/dl (32.0-36.5); MEAN CORPUSCULAR VOLUME 87.7 fl (80.0-96.0); MONO # 0.6 10^3/uL (0.0-0.8); MONO % 6.2 % (2.0-8.0); NEUTROPHILS # 6.2 10^3/uL (1.5-8.5); NEUTROPHILS % 69.2 % (36.0-66.0); PLATELET COUNT, AUTOMATED 196 10^3/uL (150-450); RED BLOOD COUNT 5.06 10^6/uL (4.30-6.10)
[2023-12-31 01:34] LABS: BLOOD UREA NITROGEN 22 MG/DL (9-23); CALCIUM LEVEL 9.6 MG/DL (8.5-10.1); CARBON DIOXIDE LEVEL 24 MMOL/L (20-31); CHLORIDE LEVEL 108 MMOL/L (98-107); CREATININE FOR GFR 0.92 MG/DL (0.70-1.30); GLOMERULAR FILTRATION RATE > 60.0 (>60); GLUCOSE, FASTING 101 MG/DL (60-100); POTASSIUM SERUM 4.3 MMOL/L (3.5-5.1); SODIUM LEVEL 138 MMOL/L (136-145)
[2023-12-31 08:53] VITALS: BP 120/77; TEMP 97.2; O2SAT 97
== END 2023-12-31 08:57 | disposition home or self-care (01) ==
LOC: EDBD 00:36 → M ED 00:36
DX: R55 Syncope and collapse (principal); R45.851 Suicidal ideations; Z59.00 Homelessness unspecified; F17.200 Nicotine dependence, unspecified, uncomplicated; F12.10 Cannabis abuse, uncomplicated; Z79.899 Other long term (current) drug therapy; Z79.83 Long term (current) use of bisphosphonates

== ENCOUNTER 2024-01-03 15:53 | Inpatient (IN) | payer MEDICAID, OTHER ==
[~2024-01-03] VITALS: Ht 170.2 cm; Wt 81.8 kg
[2024-01-03 19:30] LABS: HEMATOCRIT 43.8 % (42.0-52.0); HEMOGLOBIN 14.7 g/dl (13.5-17.5); MEAN CORPUSCULAR HEMOGLOBIN 30.8 pg (27.0-33.0); MEAN CORPUSCULAR HGB CONC 33.6 g/dl (32.0-36.5); MEAN CORPUSCULAR VOLUME 91.8 fl (80.0-96.0); PLATELET COUNT, AUTOMATED 184 10^3/uL (150-450); RED BLOOD COUNT 4.77 10^6/uL (4.30-6.10); WHITE BLOOD COUNT 9.3 10^3/uL (4.0-10.0)
[2024-01-03 19:52] LABS: AMPHETAMINES LEVEL URINE NEGATIVE (NEGATIVE); BARBITURATES URINE NEGATIVE (NEGATIVE); BENZODIAZEPINES URINE NEGATIVE (NEGATIVE); COCAINE METABOLITE URINE NEGATIVE (NEGATIVE); METHADONE URINE NEGATIVE (NEGATIVE); OPIATES URINE NEGATIVE (NEGATIVE); PHENCYCLIDINE URINE NEGATIVE (NEGATIVE)
[2024-01-03 19:54] LABS: ETHYL ALCOHOL (ETHANOL) 0.004 % (0.000-0.010)
[2024-01-03 19:56] LABS: SALICYLATE LEVEL < 3.0 MG/DL (<30)
[2024-01-03 19:56] LABS: CANNABINOIDS URINE POSITIVE (NEGATIVE)
[2024-01-03 20:02] LABS: ALKALINE PHOSPHATASE 98 U/L (46-116); ALT/SGPT 15 U/L (7.0-40); AST/SGOT 12 U/L (<34); BILIRUBIN,DIRECT < 0.1 MG/DL (<0.4); BILIRUBIN,TOTAL 0.3 MG/DL (0.3-1.2); BLOOD UREA NITROGEN 17 MG/DL (9-23); CALCIUM LEVEL 9.1 MG/DL (8.5-10.1); CARBON DIOXIDE LEVEL 29 MMOL/L (20-31); CHLORIDE LEVEL 108 MMOL/L (98-107); CREATININE FOR GFR 0.93 MG/DL (0.70-1.30); GLOMERULAR FILTRATION RATE > 60.0 (>60); GLUCOSE, FASTING 94 MG/DL (60-100); POTASSIUM SERUM 3.8 MMOL/L (3.5-5.1); SODIUM LEVEL 141 MMOL/L (136-145); THYROID STIMULATING HORMONE 2.438 uIU/ML (0.55-4.78); TOTAL PROTEIN 6.8 G/DL (5.7-8.2)
[2024-01-03] MEDS ORDERED: NICO4LOZ32 PO (23:34)
[2024-01-03] MEDS ORDERED: HOME MED LIST COMPLETE! XX SCH (23:40)
[2024-01-04 00:57] VITALS: BP 116/97; TEMP 98; O2SAT 98
[2024-01-04 06:54] VITALS: BP 97/61; TEMP 97; O2SAT 98
[2024-01-04] MEDS ORDERED: NICOTINE POLACRILEX 2 MG GUM PO PRN (10:30)
[2024-01-04] MEDS: busPIRone 10 MG TAB PO SCH (10:57)
[2024-01-04] MEDS: VENLAFAXINE **XR** 75MG CAPSULE PO SCH (10:57)
[2024-01-04] MEDS: KETOCONAZOLE 2% CREAM TOP SCH (11:17)
[2024-01-04 16:29] VITALS: BP 115/71; TEMP 96.7; O2SAT 97
[2024-01-04] MEDS: ARIPiprazole 15 MG TAB (AbiLIFY) PO SCH (21:25)
[2024-01-04] MEDS: traZODone 50 MG TAB PO SCH (21:25)
[2024-01-05 06:23] VITALS: BP 104/65; TEMP 96.9; O2SAT 95
[2024-01-05 16:05] VITALS: BP 118/74; TEMP 97.9
[2024-01-05] MEDS: NICOTINE 21MG/24HR 1 EA TRANSDERMAL TD SCH (17:32)
[2024-01-06 06:18] VITALS: BP 94/54; TEMP 98.3; O2SAT 98
[2024-01-06 18:54] VITALS: BP 126/85; TEMP 98.1; O2SAT 98
[2024-01-07 06:39] VITALS: BP 119/67; TEMP 97.2; O2SAT 96
== END 2024-01-07 11:21 | disposition home or self-care (01) | DRG 751 ==
LOC: M ED 15:53 → M ED INP 21:59 → M PSY 01-04 00:28
PROVIDERS: ADMIT Student in an Organized Health Care Education/Training Program; ATTEND Student in an Organized Health Care Education/Training Program
DX: F33.0 Major depressive disorder, recurrent, mild (principal); R45.851 Suicidal ideations; F41.1 Generalized anxiety disorder; M25.561 Pain in right knee; G89.29 Other chronic pain; M54.9 Dorsalgia, unspecified; F17.210 Nicotine dependence, cigarettes, uncomplicated; F12.10 Cannabis abuse, uncomplicated; Z56.0 Unemployment, unspecified; Z81.8 Family history of other mental and behavioral disorders; Z79.899 Other long term (current) drug therapy; Z65.3 Problems related to other legal circumstances

== ENCOUNTER 2024-01-20 18:54 | Inpatient (IN) | payer MEDICAID, OTHER ==
[~2024-01-20] VITALS: Ht 175.3 cm; Wt 85.1 kg
[~2024-01-20 18:54] MED LIST changes: +NICO4LOZ32 PO
[2024-01-20 19:36] LABS: HEMOGLOBIN 15.2 g/dl (13.5-17.5); MEAN CORPUSCULAR HEMOGLOBIN 31.3 pg (27.0-33.0); MEAN CORPUSCULAR HGB CONC 35.3 g/dl (32.0-36.5); MEAN CORPUSCULAR VOLUME 88.5 fl (80.0-96.0); PLATELET COUNT, AUTOMATED 204 10^3/uL (150-450); RED BLOOD COUNT 4.86 10^6/uL (4.30-6.10); WHITE BLOOD COUNT 9.4 10^3/uL (4.0-10.0)
[2024-01-20 20:03] LABS: AMPHETAMINES LEVEL URINE NEGATIVE (NEGATIVE); BARBITURATES URINE NEGATIVE (NEGATIVE); BENZODIAZEPINES URINE NEGATIVE (NEGATIVE); COCAINE METABOLITE URINE NEGATIVE (NEGATIVE); METHADONE URINE NEGATIVE (NEGATIVE); OPIATES URINE NEGATIVE (NEGATIVE); PHENCYCLIDINE URINE NEGATIVE (NEGATIVE)
[2024-01-20 20:04] LABS: ETHYL ALCOHOL (ETHANOL) < 0.003 % (0.000-0.010)
[2024-01-20 20:06] LABS: ALBUMIN 4.2 G/DL (3.2-5.2); ALKALINE PHOSPHATASE 106 U/L (46-116); ALT/SGPT 19 U/L (7.0-40); AST/SGOT 13 U/L (<34); BILIRUBIN,DIRECT < 0.1 MG/DL (<0.4); BILIRUBIN,TOTAL 0.3 MG/DL (0.3-1.2); BLOOD UREA NITROGEN 19 MG/DL (9-23); CARBON DIOXIDE LEVEL 28 MMOL/L (20-31); CHLORIDE LEVEL 107 MMOL/L (98-107); CREATININE FOR GFR 0.95 MG/DL (0.70-1.30); GLOMERULAR FILTRATION RATE > 60.0 (>60); GLUCOSE, FASTING 82 MG/DL (60-100); POTASSIUM SERUM 4.2 MMOL/L (3.5-5.1); SALICYLATE LEVEL < 3.0 MG/DL (<30); SODIUM LEVEL 140 MMOL/L (136-145); TOTAL PROTEIN 7.2 G/DL (5.7-8.2)
[2024-01-20 20:09] LABS: THYROID STIMULATING HORMONE 2.574 uIU/ML (0.55-4.78)
[2024-01-20 20:14] LABS: CANNABINOIDS URINE POSITIVE (NEGATIVE)
[2024-01-20] MEDS ORDERED: HOME MED LIST COMPLETE! XX SCH (22:25)
[2024-01-21] MEDS: busPIRone 10 MG TAB PO SCH ×2 (09:48→21:05)
[2024-01-21] MEDS: VENLAFAXINE **XR** 75MG CAPSULE PO SCH (09:48)
[2024-01-21] MEDS: KETOCONAZOLE 2% CREAM TOP SCH (10:44)
[2024-01-21] MEDS ORDERED: MOM 30ML SUSPENSION UDC PO PRN (12:55)
[2024-01-21] MEDS ORDERED: MAALOX 30 ML SUSP *UDC PO PRN (12:55)
[2024-01-21] MEDS ORDERED: ACETAMINOPHEN TAB 650MG DOSE (2X325MG) PO PRN (12:55)
[2024-01-21] MEDS ORDERED: diphenhydrAMINE 25MG CAP PO PRN (12:55)
[2024-01-21] MEDS ORDERED: IBUPROFEN 400MG TAB PO PRN (12:55)
[2024-01-21] MEDS ORDERED: traZODone 50 MG TAB PO PRN (12:55)
[2024-01-21 15:53] VITALS: BP 124/87; TEMP 98; O2SAT 97
[2024-01-21] MEDS ORDERED: traZODone 50 MG TAB PO SCH (21:00)
[2024-01-21] MEDS ORDERED: ARIPiprazole 15 MG TAB (AbiLIFY) PO SCH (21:00)
[2024-01-21] MEDS: traZODone 50 MG TAB PO SCH (21:05)
[2024-01-21] MEDS: ARIPiprazole 15 MG TAB (AbiLIFY) PO SCH (21:05)
[2024-01-22 06:04] VITALS: BP 128/76; TEMP 98; O2SAT 95
[2024-01-22] MEDS ORDERED: VENLAFAXINE **XR** 75MG CAPSULE PO SCH (09:00)
[2024-01-22] MEDS: VENLAFAXINE **XR** 75MG CAPSULE PO SCH (09:23)
[2024-01-22] MEDS: KETOCONAZOLE 2% CREAM TOP SCH (09:24)
[2024-01-22 16:14] VITALS: BP 116/69; TEMP 98; O2SAT 100
[2024-01-23 06:09] VITALS: BP 118/65; TEMP 97.5; O2SAT 97
[2024-01-23 15:06] VITALS: BP 120/74; TEMP 96; O2SAT 96
[2024-01-24 06:25] VITALS: BP 129/90; TEMP 96.6; O2SAT 99
[2024-01-24] MEDS: NICOTINE 21MG/24HR 1 EA TRANSDERMAL TD SCH (16:08)
[2024-01-24 17:36] VITALS: BP 116/74; TEMP 98; O2SAT 96
[2024-01-25 06:00] VITALS: BP 145/82; TEMP 98.1; O2SAT 97
[2024-01-25] MEDS ORDERED: NICOTINE 21MG/24HR 1 EA TRANSDERMAL TD SCH (09:00)
== END 2024-01-25 12:40 | disposition home or self-care (01) | DRG 754 ==
LOC: M ED 18:54 → M ED INP 01-21 12:51 → M PSY 01-21 16:02
PROVIDERS: ADMIT Student in an Organized Health Care Education/Training Program; ATTEND Student in an Organized Health Care Education/Training Program
DX: F32.A Depression, unspecified (principal); F41.1 Generalized anxiety disorder; F65.9 Paraphilia, unspecified; R45.851 Suicidal ideations; R45.850 Homicidal ideations; F12.90 Cannabis use, unspecified, uncomplicated; M25.561 Pain in right knee; M54.9 Dorsalgia, unspecified; G89.29 Other chronic pain; F17.200 Nicotine dependence, unspecified, uncomplicated; Z79.899 Other long term (current) drug therapy; Z91.148 Patient's other noncompliance with medication regimen for other reason; Z71.51 Drug abuse counseling and surveillance of drug abuser

== ENCOUNTER 2024-01-25 23:39 | Inpatient (IN) | payer MEDICAID, OTHER ==
[~2024-01-25] VITALS: Ht 170.2 cm; Wt 85.2 kg
[2024-01-26 00:20] LABS: HEMATOCRIT 42.2 % (42.0-52.0); HEMOGLOBIN 14.9 g/dl (13.5-17.5); MEAN CORPUSCULAR HEMOGLOBIN 31.3 pg (27.0-33.0); MEAN CORPUSCULAR HGB CONC 35.3 g/dl (32.0-36.5); MEAN CORPUSCULAR VOLUME 88.7 fl (80.0-96.0); PLATELET COUNT, AUTOMATED 209 10^3/uL (150-450); RED BLOOD COUNT 4.76 10^6/uL (4.30-6.10)
[2024-01-26 00:42] LABS: AMPHETAMINES LEVEL URINE NEGATIVE (NEGATIVE); BARBITURATES URINE NEGATIVE (NEGATIVE); BENZODIAZEPINES URINE NEGATIVE (NEGATIVE); COCAINE METABOLITE URINE NEGATIVE (NEGATIVE); METHADONE URINE NEGATIVE (NEGATIVE); OPIATES URINE NEGATIVE (NEGATIVE); PHENCYCLIDINE URINE NEGATIVE (NEGATIVE)
[2024-01-26 00:45] LABS: ETHYL ALCOHOL (ETHANOL) < 0.003 % (0.000-0.010)
[2024-01-26 00:47] LABS: ALBUMIN 4.1 G/DL (3.2-5.2); ALKALINE PHOSPHATASE 109 U/L (46-116); ALT/SGPT 19 U/L (7.0-40); AST/SGOT < 8 U/L (<34); BILIRUBIN,DIRECT 0.1 MG/DL (<0.4); BILIRUBIN,TOTAL 0.4 MG/DL (0.3-1.2); BLOOD UREA NITROGEN 22 MG/DL (9-23); CARBON DIOXIDE LEVEL 26 MMOL/L (20-31); CHLORIDE LEVEL 108 MMOL/L (98-107); CREATININE FOR GFR 1.03 MG/DL (0.70-1.30); GLOMERULAR FILTRATION RATE > 60.0 (>60); GLUCOSE, FASTING 99 MG/DL (60-100); SALICYLATE LEVEL < 3.0 MG/DL (<30); SODIUM LEVEL 139 MMOL/L (136-145); TOTAL PROTEIN 6.8 G/DL (5.7-8.2)
[2024-01-26 01:18] LABS: CANNABINOIDS URINE POSITIVE (NEGATIVE)
[2024-01-26] MEDS ORDERED: HOME MED LIST COMPLETE! XX SCH (07:45)
[2024-01-26] MEDS ORDERED: PILL CUTTER 1 EACH XX PRN (08:25)
[2024-01-26] MEDS: KETOCONAZOLE 2% CREAM TOP SCH (09:00)
[2024-01-26] MEDS: busPIRone 10 MG TAB PO SCH (09:55)
[2024-01-26] MEDS: VENLAFAXINE **XR** 75MG CAPSULE PO SCH (09:56)
[2024-01-26 11:32] VITALS: BP 123/75; TEMP 97.2; O2SAT 98
[2024-01-26] MEDS ORDERED: ACETAMINOPHEN TAB 650MG DOSE (2X325MG) PO PRN (22:00)
[2024-01-26] MEDS ORDERED: traZODone 50 MG TAB PO PRN (22:00)
[2024-01-26] MEDS ORDERED: MOM 30ML SUSPENSION UDC PO PRN (22:00)
[2024-01-26] MEDS ORDERED: diphenhydrAMINE 25MG CAP PO PRN (22:00)
[2024-01-26] MEDS ORDERED: MAALOX 30 ML SUSP *UDC PO PRN (22:00)
[2024-01-26] MEDS: traZODone 50 MG TAB PO SCH (23:07)
[2024-01-26] MEDS: ARIPiprazole 10 MG TAB PO SCH (23:08)
[2024-01-27 06:30] VITALS: BP 113/67; TEMP 97; O2SAT 100
[2024-01-27] MEDS: NICOTINE 21MG/24HR 1 EA TRANSDERMAL TD PRN (09:19)
[2024-01-27 17:39] VITALS: BP 128/85; TEMP 97.5; O2SAT 99
[2024-01-28 06:13] VITALS: BP 125/69; TEMP 96.8
[2024-01-28 15:57] VITALS: BP 120/76; TEMP 98; O2SAT 98
[2024-01-28 18:13] VITALS: BP 120/82; TEMP 97.9; O2SAT 100
[2024-01-29 06:07] VITALS: BP 104/57; TEMP 97.5
[2024-01-29 15:34] VITALS: BP 108/72; TEMP 97.6; O2SAT 98
[2024-01-29] MEDS: busPIRone 5 MG TAB PO SCH (20:16)
[2024-01-30 06:02] VITALS: BP 116/57; TEMP 97.1
[2024-01-30 16:12] VITALS: BP 140/82; TEMP 98.7; O2SAT 99
[2024-01-30] MEDS: IBUPROFEN 400MG TAB PO PRN (20:11)
[2024-01-31 05:48] VITALS: BP 107/53; TEMP 97.4; O2SAT 99
[2024-01-31 18:43] VITALS: BP 131/75; TEMP 98.2
[2024-02-01 06:36] VITALS: BP 108/64; TEMP 97.4; O2SAT 100
[2024-02-01] MEDS ORDERED: BUSP15TA47 PO (08:27)
== END 2024-02-01 12:00 | disposition home or self-care (01) | DRG 751 ==
LOC: M ED 23:39 → M PSY 01-26 21:57
PROVIDERS: ADMIT Student in an Organized Health Care Education/Training Program; ATTEND Student in an Organized Health Care Education/Training Program
DX: F33.9 Major depressive disorder, recurrent, unspecified (principal); R45.850 Homicidal ideations; R45.851 Suicidal ideations; F17.210 Nicotine dependence, cigarettes, uncomplicated; M25.561 Pain in right knee; M54.9 Dorsalgia, unspecified; G89.29 Other chronic pain; Z79.899 Other long term (current) drug therapy; Z56.0 Unemployment, unspecified; Z81.8 Family history of other mental and behavioral disorders

== ENCOUNTER 2024-02-04 13:47 | Emergency (ER) | payer MEDICAID, OTHER ==
[~2024-02-04] VITALS: Ht 188 cm; Wt 76.5 kg
[~2024-02-04 13:47] MED LIST changes: +BUSP15TA47 PO
[2024-02-04 14:14] LABS: HEMATOCRIT 46.1 % (42.0-52.0); HEMOGLOBIN 15.8 g/dl (13.5-17.5); MEAN CORPUSCULAR HEMOGLOBIN 30.4 pg (27.0-33.0); MEAN CORPUSCULAR HGB CONC 34.3 g/dl (32.0-36.5); MEAN CORPUSCULAR VOLUME 88.8 fl (80.0-96.0); PLATELET COUNT, AUTOMATED 206 10^3/uL (150-450); RED BLOOD COUNT 5.19 10^6/uL (4.30-6.10); WHITE BLOOD COUNT 7.9 10^3/uL (4.0-10.0)
[2024-02-04] MEDS ORDERED: BUSP15TA47 PO (14:34)
[2024-02-04] MEDS ORDERED: HOME MED LIST COMPLETE! XX SCH (14:35)
[2024-02-04 14:47] LABS: ALBUMIN 4.2 G/DL (3.2-5.2); ALKALINE PHOSPHATASE 100 U/L (46-116); ALT/SGPT 14 U/L (7.0-40); AST/SGOT < 8 U/L (<34); BILIRUBIN,DIRECT 0.1 MG/DL (<0.4); BILIRUBIN,TOTAL 0.5 MG/DL (0.3-1.2); BLOOD UREA NITROGEN 24 MG/DL (9-23); CALCIUM LEVEL 9.4 MG/DL (8.5-10.1); CARBON DIOXIDE LEVEL 28 MMOL/L (20-31); CHLORIDE LEVEL 110 MMOL/L (98-107); CREATININE FOR GFR 1.02 MG/DL (0.70-1.30); ETHYL ALCOHOL (ETHANOL) < 0.003 % (0.000-0.010); GLOMERULAR FILTRATION RATE > 60.0 (>60); GLUCOSE, FASTING 115 MG/DL (60-100); POTASSIUM SERUM 4.2 MMOL/L (3.5-5.1); SALICYLATE LEVEL < 3.0 MG/DL (<30); SODIUM LEVEL 143 MMOL/L (136-145); THYROID STIMULATING HORMONE 1.249 uIU/ML (0.55-4.78); TOTAL PROTEIN 7.2 G/DL (5.7-8.2)
[2024-02-04 14:57] LABS: AMPHETAMINES LEVEL URINE NEGATIVE (NEGATIVE); BARBITURATES URINE NEGATIVE (NEGATIVE); BENZODIAZEPINES URINE NEGATIVE (NEGATIVE); COCAINE METABOLITE URINE NEGATIVE (NEGATIVE); METHADONE URINE NEGATIVE (NEGATIVE)
[2024-02-04 14:58] LABS: CANNABINOIDS URINE POSITIVE (NEGATIVE); OPIATES URINE NEGATIVE (NEGATIVE); PHENCYCLIDINE URINE NEGATIVE (NEGATIVE)
[2024-02-04] MEDS: traZODone 50 MG TAB PO SCH (20:34)
[2024-02-04] MEDS: ARIPiprazole 15 MG TAB (AbiLIFY) PO SCH (20:35)
[2024-02-04] MEDS: busPIRone 5 MG TAB PO SCH (20:35)
[2024-02-05] MEDS: VENLAFAXINE **XR** 75MG CAPSULE PO SCH (09:06)
[2024-02-05] MEDS: KETOCONAZOLE 2% CREAM TOP SCH (13:42)
[2024-02-07 14:13] VITALS: BP 129/91; TEMP 98.2; O2SAT 98
== END 2024-02-07 14:15 | disposition home or self-care (01) ==
LOC: M ED 13:47
DX: F32.A Depression, unspecified (principal); Z79.899 Other long term (current) drug therapy

== ENCOUNTER 2024-02-20 12:28 | Inpatient (IN) | payer MEDICAID, OTHER ==
[~2024-02-20] VITALS: Ht 170.2 cm; Wt 85.0 kg
[2024-02-20 13:40] LABS: HEMATOCRIT 43.6 % (42.0-52.0); HEMOGLOBIN 15.2 g/dl (13.5-17.5); MEAN CORPUSCULAR HGB CONC 34.9 g/dl (32.0-36.5); MEAN CORPUSCULAR VOLUME 88.8 fl (80.0-96.0); PLATELET COUNT, AUTOMATED 185 10^3/uL (150-450); RED BLOOD COUNT 4.91 10^6/uL (4.30-6.10); WHITE BLOOD COUNT 7.9 10^3/uL (4.0-10.0)
[2024-02-20 14:12] LABS: AMPHETAMINES LEVEL URINE NEGATIVE (NEGATIVE); BARBITURATES URINE NEGATIVE (NEGATIVE); BENZODIAZEPINES URINE NEGATIVE (NEGATIVE); COCAINE METABOLITE URINE NEGATIVE (NEGATIVE); METHADONE URINE NEGATIVE (NEGATIVE); OPIATES URINE NEGATIVE (NEGATIVE); PHENCYCLIDINE URINE NEGATIVE (NEGATIVE)
[2024-02-20 14:14] LABS: ETHYL ALCOHOL (ETHANOL) < 0.003 % (0.000-0.010)
[2024-02-20 14:16] LABS: ALKALINE PHOSPHATASE 97 U/L (46-116); ALT/SGPT 16 U/L (7.0-40); AST/SGOT 9 U/L (<34); BILIRUBIN,DIRECT 0.1 MG/DL (<0.4); BILIRUBIN,TOTAL 0.5 MG/DL (0.3-1.2); BLOOD UREA NITROGEN 16 MG/DL (9-23); CALCIUM LEVEL 9.4 MG/DL (8.5-10.1); CANNABINOIDS URINE POSITIVE (NEGATIVE); CARBON DIOXIDE LEVEL 27 MMOL/L (20-31); CHLORIDE LEVEL 109 MMOL/L (98-107); CREATININE FOR GFR 0.89 MG/DL (0.70-1.30); GLOMERULAR FILTRATION RATE > 60.0 (>60); GLUCOSE, FASTING 72 MG/DL (60-100); POTASSIUM SERUM 3.9 MMOL/L (3.5-5.1); SALICYLATE LEVEL < 3.0 MG/DL (<30); SODIUM LEVEL 142 MMOL/L (136-145); TOTAL PROTEIN 6.9 G/DL (5.7-8.2)
[2024-02-20 14:18] LABS: THYROID STIMULATING HORMONE 1.918 uIU/ML (0.55-4.78)
[2024-02-20] MEDS ORDERED: HOME MED LIST COMPLETE! XX SCH (20:05)
[2024-02-21] MEDS: VENLAFAXINE **XR** 75MG CAPSULE PO SCH (09:35)
[2024-02-21] MEDS: busPIRone 5 MG TAB PO SCH (09:35)
[2024-02-21] MEDS ORDERED: diphenhydrAMINE 25MG CAP PO PRN (12:10)
[2024-02-21] MEDS ORDERED: MAALOX 30 ML SUSP *UDC PO PRN (12:10)
[2024-02-21] MEDS ORDERED: MOM 30ML SUSPENSION UDC PO PRN (12:10)
[2024-02-21 13:30] VITALS: BP 131/97; TEMP 97.9; O2SAT 99
[2024-02-21] MEDS: traZODone 50 MG TAB PO PRN (20:03)
[2024-02-21] MEDS ORDERED: traZODone 50 MG TAB PO SCH (21:00)
[2024-02-21] MEDS ORDERED: ARIPiprazole 15 MG TAB (AbiLIFY) PO SCH (21:00)
[2024-02-22 06:27] VITALS: BP 127/70; TEMP 98.8; O2SAT 96
[2024-02-22] MEDS: busPIRone 5 MG TAB PO SCH (10:38)
[2024-02-22] MEDS: VENLAFAXINE **XR** 75MG CAPSULE PO SCH (10:38)
[2024-02-22] MEDS: KETOCONAZOLE 2% CREAM TOP SCH (11:06)
[2024-02-22] MEDS: ACETAMINOPHEN TAB 650MG DOSE (2X325MG) PO PRN (17:58)
[2024-02-22 18:15] VITALS: BP 123/86; TEMP 97.7
[2024-02-22] MEDS: ARIPiprazole 15 MG TAB (AbiLIFY) PO SCH (20:14)
[2024-02-22] MEDS: traZODone 50 MG TAB PO SCH (20:14)
[2024-02-23 06:16] VITALS: BP 130/67; TEMP 98.4; O2SAT 100
[2024-02-23] MEDS: IBUPROFEN 400MG TAB PO PRN (15:08)
[2024-02-23 17:36] VITALS: BP 136/89; TEMP 97.3; O2SAT 99
[2024-02-24 06:24] VITALS: BP 110/64; TEMP 98.2; O2SAT 97
[2024-02-24 18:40] VITALS: BP 117/82; TEMP 98.6; O2SAT 97
[2024-02-25 06:22] VITALS: BP 106/75; TEMP 97.6; O2SAT 98
== END 2024-02-25 13:40 | disposition home or self-care (01) | DRG 754 ==
LOC: M ED 12:28 → M ED INP 02-21 12:06 → M PSY 02-21 13:17
PROVIDERS: ADMIT Student in an Organized Health Care Education/Training Program; ATTEND Student in an Organized Health Care Education/Training Program
DX: F43.21 Adjustment disorder with depressed mood (principal); R45.851 Suicidal ideations; F65.4 Pedophilia; F12.10 Cannabis abuse, uncomplicated; L42 Pityriasis rosea; Z81.3 Family history of other psychoactive substance abuse and dependence; Z81.8 Family history of other mental and behavioral disorders; Z79.899 Other long term (current) drug therapy; Z59.01 Sheltered homelessness; Z56.0 Unemployment, unspecified; Z87.891 Personal history of nicotine dependence; Z65.2 Problems related to release from prison

== ENCOUNTER 2024-02-28 19:05 | Inpatient (IN) | payer MEDICAID, OTHER ==
[~2024-02-28] VITALS: Ht 170.2 cm; Wt 97.4 kg
[2024-02-28 20:09] LABS: HEMATOCRIT 39.1 % (42.0-52.0); HEMOGLOBIN 13.8 g/dl (13.5-17.5); MEAN CORPUSCULAR HGB CONC 35.3 g/dl (32.0-36.5); MEAN CORPUSCULAR VOLUME 87.9 fl (80.0-96.0); PLATELET COUNT, AUTOMATED 186 10^3/uL (150-450); RED BLOOD COUNT 4.45 10^6/uL (4.30-6.10); WHITE BLOOD COUNT 8.2 10^3/uL (4.0-10.0)
[2024-02-28 20:31] LABS: AMPHETAMINES LEVEL URINE NEGATIVE (NEGATIVE); BARBITURATES URINE NEGATIVE (NEGATIVE); BENZODIAZEPINES URINE NEGATIVE (NEGATIVE); COCAINE METABOLITE URINE NEGATIVE (NEGATIVE); METHADONE URINE NEGATIVE (NEGATIVE); OPIATES URINE NEGATIVE (NEGATIVE); PHENCYCLIDINE URINE NEGATIVE (NEGATIVE)
[2024-02-28 20:34] LABS: ETHYL ALCOHOL (ETHANOL) < 0.003 % (0.000-0.010)
[2024-02-28 20:35] LABS: CANNABINOIDS URINE POSITIVE (NEGATIVE)
[2024-02-28 20:35] LABS: ALBUMIN 3.8 G/DL (3.2-5.2); ALKALINE PHOSPHATASE 109 U/L (46-116); ALT/SGPT 12 U/L (7.0-40); AST/SGOT 8 U/L (<34); BILIRUBIN,DIRECT < 0.1 MG/DL (<0.4); BILIRUBIN,TOTAL 0.2 MG/DL (0.3-1.2); BLOOD UREA NITROGEN 17 MG/DL (9-23); CALCIUM LEVEL 8.5 MG/DL (8.5-10.1); CARBON DIOXIDE LEVEL 26 MMOL/L (20-31); CHLORIDE LEVEL 111 MMOL/L (98-107); CREATININE FOR GFR 0.87 MG/DL (0.70-1.30); GLOMERULAR FILTRATION RATE > 60.0 (>60); GLUCOSE, FASTING 91 MG/DL (60-100); POTASSIUM SERUM 3.8 MMOL/L (3.5-5.1); SALICYLATE LEVEL < 3.0 MG/DL (<30); SODIUM LEVEL 142 MMOL/L (136-145); TOTAL PROTEIN 6.4 G/DL (5.7-8.2)
[2024-02-28 20:37] LABS: THYROID STIMULATING HORMONE 1.163 uIU/ML (0.55-4.78)
[2024-02-28] MEDS: IBUPROFEN 600MG TAB PO ONE (20:45)
[2024-02-28] MEDS ORDERED: IBUP200C25 PO (21:24)
[2024-02-28] MEDS ORDERED: HOME MED LIST COMPLETE! XX SCH (21:25)
[2024-02-28] MEDS ORDERED: diphenhydrAMINE 25MG CAP PO PRN (22:10)
[2024-02-28] MEDS ORDERED: MAALOX 30 ML SUSP *UDC PO PRN ×2 (22:10)
[2024-02-28] MEDS ORDERED: traZODone 50 MG TAB PO PRN (22:10)
[2024-02-28] MEDS ORDERED: ACETAMINOPHEN TAB 650MG DOSE (2X325MG) PO PRN (22:10)
[2024-02-28] MEDS ORDERED: IBUPROFEN 400MG TAB PO PRN (22:10)
[2024-02-28] MEDS ORDERED: MOM 30ML SUSPENSION UDC PO PRN ×2 (22:10)
[2024-02-28 23:23] VITALS: BP 135/84; TEMP 97.5; O2SAT 97
[2024-02-29] MEDS: IBUPROFEN 400MG TAB PO PRN (04:53)
[2024-02-29 06:17] VITALS: BP 140/99; TEMP 97.5; O2SAT 100
[2024-02-29] MEDS: ACETAMINOPHEN TAB 650MG DOSE (2X325MG) PO PRN (14:43)
[2024-02-29 17:19] VITALS: BP 144/86; TEMP 99.5; O2SAT 99
[2024-02-29] MEDS: CHLORHEXIDINE GLUCONATE 0.12 % 15ML UDC (PERIDEX ORAL RINSE) MT SCH (21:03)
[2024-02-29] MEDS: traZODone 50 MG TAB PO PRN (21:03)
[2024-03-01 06:10] VITALS: BP 127/64; TEMP 98.6; O2SAT 100
[2024-03-01] MEDS: ARIPiprazole 15 MG TAB (AbiLIFY) PO SCH (12:18)
[2024-03-01] MEDS: busPIRone 5 MG TAB PO SCH (12:18)
[2024-03-01 18:34] VITALS: BP 135/97; TEMP 98.5
[2024-03-02 06:08] VITALS: BP 121/71; TEMP 98.5; O2SAT 96
[2024-03-02 18:18] VITALS: BP 153/86; TEMP 98; O2SAT 100
[2024-03-03 06:19] VITALS: BP 152/80; TEMP 98.6; O2SAT 97
[2024-03-03] MEDS: diphenhydrAMINE 25MG CAP PO PRN (14:37)
[2024-03-03 15:22] VITALS: BP 126/75; TEMP 97.4; O2SAT 100
[2024-03-03] MEDS: VENLAFAXINE **XR** 75MG CAPSULE PO SCH (15:22)
[2024-03-04 06:31] VITALS: BP 128/74; TEMP 97.6; O2SAT 97
[2024-03-04 16:10] VITALS: BP 134/85; TEMP 98.4; O2SAT 100
[2024-03-05 06:21] VITALS: BP 127/75; TEMP 97.4
[2024-03-05 16:11] VITALS: BP 130/88; TEMP 98; O2SAT 97
[2024-03-06 06:16] VITALS: BP 139/78; TEMP 97.4; O2SAT 97
[2024-03-06 18:31] VITALS: BP 121/86; TEMP 97.2; O2SAT 99
[2024-03-07 06:14] VITALS: BP 148/82; TEMP 97.1; O2SAT 96
[2024-03-07] MEDS ORDERED: ABIL1TAB12 PO (10:09)
== END 2024-03-07 11:26 | disposition home or self-care (01) | DRG 750 ==
LOC: M ED 19:05 → M ED INP 22:25 → M PSY 23:12
PROVIDERS: ADMIT Psychiatry & Neurology Psychiatry; ATTEND Psychiatry & Neurology Child & Adolescent Psychiatry
DX: F20.9 Schizophrenia, unspecified (principal); Z59.00 Homelessness unspecified; R45.851 Suicidal ideations; Z63.8 Other specified problems related to primary support group; F65.9 Paraphilia, unspecified; Z79.899 Other long term (current) drug therapy; F41.1 Generalized anxiety disorder; F12.10 Cannabis abuse, uncomplicated

== ENCOUNTER 2024-08-24 10:15 | Emergency (ER) | payer MEDICAID, OTHER ==
[~2024-08-24] VITALS: Ht 170.2 cm; Wt 92.0 kg
[~2024-08-24 10:15] MED LIST changes: +ABIL1TAB12 PO; -ARIP10TA32 PO; +ARIP10TA63 PO; +IBUP200C25 PO
[2024-08-24 10:19] VITALS: BP 140/98; TEMP 97.7; O2SAT 97
== END 2024-08-24 11:50 | disposition left against medical advice (07) ==
LOC: M ED 10:15 → EDBD 10:15 → M ED 11:50
DX: Z53.21 Procedure and treatment not carried out due to patient leaving prior to being seen by health care provider (principal)

== ENCOUNTER → 2024-10-05 | Outpatient (REF) | LOC: M PLAIMG 10:58 | PROVIDERS: ATTEND Internal Medicine | DX: R52 Pain, unspecified (principal) ==

== ENCOUNTER 2024-11-24 02:00 | Emergency (ER) | payer OTHER ==
[~2024-11-24] VITALS: Ht 170.2 cm; Wt 94.0 kg
[~2024-11-24 02:00] MED LIST changes: -BUPR1TAB56; +BUPR200T45
[2024-11-24 02:56] LABS: HEMATOCRIT 40.1 % (42.0-52.0); MEAN CORPUSCULAR HEMOGLOBIN 30.5 pg (27.0-33.0); MEAN CORPUSCULAR HGB CONC 34.9 g/dl (32.0-36.5); MEAN CORPUSCULAR VOLUME 87.4 fl (80.0-96.0); PLATELET COUNT, AUTOMATED 186 10^3/uL (150-450); RED BLOOD COUNT 4.59 10^6/uL (4.30-6.10); WHITE BLOOD COUNT 7.7 10^3/uL (4.0-10.0)
[2024-11-24 03:18] LABS: AMPHETAMINES LEVEL URINE NEGATIVE (NEGATIVE); BARBITURATES URINE NEGATIVE (NEGATIVE); BENZODIAZEPINES URINE NEGATIVE (NEGATIVE); COCAINE METABOLITE URINE NEGATIVE (NEGATIVE); METHADONE URINE NEGATIVE (NEGATIVE); OPIATES URINE NEGATIVE (NEGATIVE); PHENCYCLIDINE URINE NEGATIVE (NEGATIVE)
[2024-11-24 03:20] LABS: ETHYL ALCOHOL (ETHANOL) 0.007 % (0.000-0.010)
[2024-11-24 03:21] LABS: SALICYLATE LEVEL < 3.0 MG/DL (<30)
[2024-11-24 03:22] LABS: ALBUMIN 4.1 G/DL (3.2-5.2); ALKALINE PHOSPHATASE 94 U/L (40-129); ALT/SGPT 17 U/L (7.0-40); AST/SGOT 13 U/L (<34); BILIRUBIN,DIRECT 0.1 MG/DL (<0.4); BILIRUBIN,TOTAL 0.3 MG/DL (0.3-1.2); BLOOD UREA NITROGEN 21 MG/DL (9-23); CALCIUM LEVEL 8.7 MG/DL (8.5-10.1); CARBON DIOXIDE LEVEL 25 MMOL/L (20-31); CHLORIDE LEVEL 108 MMOL/L (98-107); GLOMERULAR FILTRATION RATE > 90.0 (>60); GLUCOSE, FASTING 87 MG/DL (60-100); POTASSIUM SERUM 3.9 MMOL/L (3.5-5.1); SODIUM LEVEL 140 MMOL/L (136-145)
[2024-11-24 03:24] LABS: CANNABINOIDS URINE POSITIVE (NEGATIVE); THYROID STIMULATING HORMONE 2.603 uIU/ML (0.55-4.78)
[2024-11-24 12:38] VITALS: BP 120/78; TEMP 97.4; O2SAT 98
== END 2024-11-24 12:41 | disposition home or self-care (01) ==
LOC: M ED 02:00
DX: F31.9 Bipolar disorder, unspecified (principal); F17.290 Nicotine dependence, other tobacco product, uncomplicated; F12.10 Cannabis abuse, uncomplicated; Z79.899 Other long term (current) drug therapy

== ENCOUNTER 2025-02-27 19:24 | Inpatient (IN) | payer MEDICAID, OTHER ==
[~2025-02-27] VITALS: Ht 170.2 cm; Wt 89.1 kg
[~2025-02-27 19:24] MED LIST changes: +ARIP1TAB10 PO; +HYDR50TA70 PO; +LAMO-18 PO; -LAMO25TA4 PO
[2025-02-27 20:02] LABS: PLATELET COUNT, AUTOMATED 215 10^3/uL (150-450)
[2025-02-27 20:26] LABS: AMPHETAMINES LEVEL URINE NEGATIVE (NEGATIVE); BARBITURATES URINE NEGATIVE (NEGATIVE); BENZODIAZEPINES URINE NEGATIVE (NEGATIVE); COCAINE METABOLITE URINE NEGATIVE (NEGATIVE); METHADONE URINE NEGATIVE (NEGATIVE); OPIATES URINE NEGATIVE (NEGATIVE); PHENCYCLIDINE URINE NEGATIVE (NEGATIVE)
[2025-02-27 20:27] LABS: CANNABINOIDS URINE POSITIVE (NEGATIVE)
[2025-02-27 20:34] LABS: ETHYL ALCOHOL (ETHANOL) < 0.003 % (0.000-0.010)
[2025-02-27 20:36] LABS: ALT/SGPT 15 U/L (7.0-40); AST/SGOT 20 U/L (<34); CALCIUM LEVEL 9.4 MG/DL (8.5-10.1); CARBON DIOXIDE LEVEL 24 MMOL/L (20-31); CHLORIDE LEVEL 105 MMOL/L (98-107); CREATININE FOR GFR 1.20 MG/DL (0.70-1.30); GLOMERULAR FILTRATION RATE 84.5 (>60); POTASSIUM SERUM 4.0 MMOL/L (3.5-5.1); SALICYLATE LEVEL < 3.0 MG/DL (<30); SODIUM LEVEL 143 MMOL/L (136-145)
[2025-02-27] MEDS ORDERED: HYDR50TA70 PO (21:49)
[2025-02-27] MEDS ORDERED: HOME MED LIST COMPLETE! XX SCH (21:50)
[2025-02-27] MEDS ORDERED: ACETAMINOPHEN 325 MG TAB PO PRN (22:35)
[2025-02-27] MEDS ORDERED: MAALOX 30 ML SUSP *UDC PO PRN (22:35)
[2025-02-27] MEDS ORDERED: traZODone 50 MG TAB PO PRN (22:35)
[2025-02-27] MEDS ORDERED: MOM 30 ML SUSPENSION UDC PO PRN (22:35)
[2025-02-27] MEDS ORDERED: IBUPROFEN 400 MG TAB PO PRN (22:35)
[2025-02-28 00:40] VITALS: BP 107/65; TEMP 96.8; O2SAT 99
[2025-02-28 06:28] VITALS: BP 105/57; TEMP 98.8; O2SAT 100
[2025-02-28] MEDS: ARIPiprazole 15 MG TAB PO SCH (08:53)
[2025-02-28] MEDS: busPIRone 5 MG TAB PO SCH (08:53)
[2025-02-28] MEDS: VENLAFAXINE **XR** 75MG CAPSULE PO SCH (08:53)
[2025-02-28 14:42] VITALS: BP 125/91; TEMP 97.4; O2SAT 98
[2025-03-01 06:50] VITALS: BP 139/90; TEMP 97.2; O2SAT 98
== END 2025-03-01 10:50 | disposition home or self-care (01) | DRG 750 ==
LOC: M ED 19:24 → M ED INP 22:31 → M PSY 02-28 00:12
PROVIDERS: ADMIT Psychiatry & Neurology Neurology; ATTEND Psychiatry & Neurology Psychiatry
DX: F25.9 Schizoaffective disorder, unspecified (principal); M41.9 Scoliosis, unspecified; R45.851 Suicidal ideations; R45.850 Homicidal ideations; F65.4 Pedophilia; F41.1 Generalized anxiety disorder; F12.10 Cannabis abuse, uncomplicated; F17.200 Nicotine dependence, unspecified, uncomplicated; M25.561 Pain in right knee; G89.29 Other chronic pain; Z65.3 Problems related to other legal circumstances; Z79.899 Other long term (current) drug therapy; Z81.8 Family history of other mental and behavioral disorders

== ENCOUNTER 2025-04-07 21:45 | Inpatient (IN) | payer MEDICAID, OTHER ==
[~2025-04-07] VITALS: Ht 170.2 cm; Wt 89.4 kg
[2025-04-07 22:24] LABS: PLATELET COUNT, AUTOMATED 255 10^3/uL (150-450)
[2025-04-07 22:44] LABS: AMPHETAMINES LEVEL URINE NEGATIVE (NEGATIVE); BARBITURATES URINE NEGATIVE (NEGATIVE); BENZODIAZEPINES URINE NEGATIVE (NEGATIVE); COCAINE METABOLITE URINE NEGATIVE (NEGATIVE); METHADONE URINE NEGATIVE (NEGATIVE); OPIATES URINE NEGATIVE (NEGATIVE); PHENCYCLIDINE URINE NEGATIVE (NEGATIVE)
[2025-04-07 22:48] LABS: SALICYLATE LEVEL < 3.0 MG/DL (<30)
[2025-04-07 22:49] LABS: ALT/SGPT 15 U/L (7.0-40); AST/SGOT 18 U/L (<34); CALCIUM LEVEL 9.1 MG/DL (8.5-10.1); CANNABINOIDS URINE POSITIVE (NEGATIVE); CARBON DIOXIDE LEVEL 28 MMOL/L (20-31); CHLORIDE LEVEL 107 MMOL/L (98-107); CREATININE FOR GFR 0.93 MG/DL (0.70-1.30); GLOMERULAR FILTRATION RATE > 90.0 (>60); POTASSIUM SERUM 4.2 MMOL/L (3.5-5.1); SODIUM LEVEL 143 MMOL/L (136-145)
[2025-04-07 22:50] LABS: ETHYL ALCOHOL (ETHANOL) < 0.003 % (0.000-0.010)
[2025-04-08] MEDS ORDERED: MOM 30 ML SUSPENSION UDC PO PRN (02:15)
[2025-04-08] MEDS ORDERED: ACETAMINOPHEN 325 MG TAB PO PRN (02:15)
[2025-04-08] MEDS ORDERED: IBUPROFEN 400 MG TAB PO PRN (02:15)
[2025-04-08] MEDS ORDERED: MAALOX 30 ML SUSP *UDC PO PRN (02:15)
[2025-04-08 03:22] VITALS: BP 110/75; TEMP 96.8; O2SAT 16
[2025-04-08] MEDS ORDERED: ALBU8.5H INH (04:26)
[2025-04-08] MEDS ORDERED: HOME MED LIST COMPLETE! XX SCH (04:30)
[2025-04-08] MEDS ORDERED: busPIRone 5 MG TAB PO PRN (05:30)
[2025-04-08] MEDS ORDERED: ALBUTEROL 90 MCG/ACT 8 GM HFA INHALER INH PRN (05:30)
[2025-04-08] MEDS: VENLAFAXINE **XR** 75MG CAPSULE PO SCH (08:48)
[2025-04-08] MEDS: ARIPiprazole 15 MG TAB PO SCH (13:13)
[2025-04-08] MEDS: NICOTINE 21 MG/24 HR 1 EA TRANSDERMAL TD SCH (13:13)
[2025-04-08 15:09] VITALS: BP 130/87; TEMP 98.2; O2SAT 98
[2025-04-08] MEDS: busPIRone 5 MG TAB PO SCH (20:47)
[2025-04-09 06:28] VITALS: BP 121/77; TEMP 97.8
[2025-04-09 15:16] VITALS: BP 121/78; TEMP 97.7; O2SAT 98
[2025-04-09] MEDS: traZODone 50 MG TAB PO PRN (20:33)
[2025-04-10 06:18] VITALS: BP 136/86; TEMP 97.7; O2SAT 98
== END 2025-04-10 10:52 | disposition home or self-care (01) | DRG 750 ==
LOC: M ED 21:45 → M ED INP 04-08 02:14 → M PSY 04-08 03:17
PROVIDERS: ADMIT General Practice; ATTEND Psychiatry & Neurology Psychiatry
DX: F25.0 Schizoaffective disorder, bipolar type (principal); R45.851 Suicidal ideations; F41.9 Anxiety disorder, unspecified; F12.20 Cannabis dependence, uncomplicated; F17.210 Nicotine dependence, cigarettes, uncomplicated; Z81.3 Family history of other psychoactive substance abuse and dependence; Z81.8 Family history of other mental and behavioral disorders; Z59.89 Other problems related to housing and economic circumstances; Z79.899 Other long term (current) drug therapy

== ENCOUNTER 2025-05-07 17:13 | Inpatient (IN) | payer MEDICAID, OTHER ==
[~2025-05-07] VITALS: Ht 172.7 cm; Wt 89.5 kg
[~2025-05-07 17:13] MED LIST changes: +ALBU8.5H INH
[2025-05-07 17:54] LABS: PLATELET COUNT, AUTOMATED 185 10^3/uL (150-450)
[2025-05-07 18:22] LABS: AMPHETAMINES LEVEL URINE NEGATIVE (NEGATIVE); BARBITURATES URINE NEGATIVE (NEGATIVE); COCAINE METABOLITE URINE NEGATIVE (NEGATIVE); METHADONE URINE NEGATIVE (NEGATIVE)
[2025-05-07 18:23] LABS: BENZODIAZEPINES URINE NEGATIVE (NEGATIVE); OPIATES URINE NEGATIVE (NEGATIVE); PHENCYCLIDINE URINE NEGATIVE (NEGATIVE)
[2025-05-07 18:25] LABS: ETHYL ALCOHOL (ETHANOL) 0.005 % (0.000-0.010)
[2025-05-07 18:27] LABS: ALT/SGPT 11 U/L (7.0-40); AST/SGOT 16 U/L (<34); CALCIUM LEVEL 8.8 MG/DL (8.5-10.1); CANNABINOIDS URINE POSITIVE (NEGATIVE); CARBON DIOXIDE LEVEL 25 MMOL/L (20-31); CHLORIDE LEVEL 107 MMOL/L (98-107); CREATININE FOR GFR 0.92 MG/DL (0.70-1.30); GLOMERULAR FILTRATION RATE > 90.0 (>60); POTASSIUM SERUM 4.4 MMOL/L (3.5-5.1); SALICYLATE LEVEL < 3.0 MG/DL (<30); SODIUM LEVEL 143 MMOL/L (136-145)
[2025-05-07] MEDS ORDERED: HOME MED LIST COMPLETE! XX SCH (19:20)
[2025-05-07] MEDS ORDERED: MED REC COMMENT (19:21)
[2025-05-07] MEDS ORDERED: traZODone 50 MG TAB PO PRN (20:30)
[2025-05-07] MEDS ORDERED: ALBUTEROL 90 MCG/ACT 8 GM HFA INHALER INH PRN (20:30)
[2025-05-07] MEDS ORDERED: MOM 30 ML SUSPENSION UDC PO PRN (20:30)
[2025-05-07] MEDS ORDERED: IBUPROFEN 400 MG TAB PO PRN (20:30)
[2025-05-07] MEDS ORDERED: ACETAMINOPHEN 325 MG TAB PO PRN (20:30)
[2025-05-07] MEDS ORDERED: MAALOX 30 ML SUSP *UDC PO PRN (20:30)
[2025-05-07] MEDS: NIX CREME RINSE 1% 60 ML KIT TOP ONE (20:45)
[2025-05-07] MEDS: busPIRone 5 MG TAB PO SCH (21:32)
[2025-05-07] MEDS: traZODone 50 MG TAB PO SCH (21:32)
[2025-05-07 22:48] VITALS: BP 123/76; TEMP 97.7; O2SAT 99
[2025-05-08 06:22] VITALS: BP 119/60; TEMP 97.5; O2SAT 98
[2025-05-08] MEDS: ARIPiprazole 15 MG TAB PO SCH (09:41)
[2025-05-08] MEDS: VENLAFAXINE **XR** 75MG CAPSULE PO SCH (09:41)
[2025-05-08 18:47] VITALS: BP 142/97; TEMP 97.9; O2SAT 98
[2025-05-09 06:48] VITALS: BP 132/88; TEMP 98; O2SAT 97
[2025-05-09] MEDS: ARIPiprazole MONOHYDRATE 400 MG INJ (FREE PSY INPT ONLY) IM ONE (11:45)
[2025-05-09 15:18] VITALS: BP 121/90; TEMP 97.7; O2SAT 97
[2025-05-10 06:46] VITALS: BP 127/79; TEMP 97.3; O2SAT 98
[2025-05-10] MEDS ORDERED: ABIL1TAB12 PO (08:36)
[2025-05-10] MEDS ORDERED: ABIL1INJ2 IM (08:40)
[2025-05-10 11:52] VITALS: BP 127/79; TEMP 97.3; O2SAT 98
== END 2025-05-10 14:06 | disposition home or self-care (01) | DRG 750 ==
LOC: M ED 17:13 → M ED INP 20:26 → M PSY 21:15
PROVIDERS: ADMIT Psychiatry & Neurology Neurology; ATTEND Psychiatry & Neurology Psychiatry
DX: F25.9 Schizoaffective disorder, unspecified (principal); R45.851 Suicidal ideations; F65.4 Pedophilia; F12.10 Cannabis abuse, uncomplicated; F17.200 Nicotine dependence, unspecified, uncomplicated; Z79.899 Other long term (current) drug therapy

== ENCOUNTER → 2025-05-23 | Outpatient (CLI) | payer OTHER ==
[~2025-05-23] MED LIST changes: +ABIL1INJ2 IM; +MED REC COMMENT
== END ==
LOC: M SLEEP HO 10:51
PROVIDERS: ATTEND Physician Assistant
DX: G47.33 Obstructive sleep apnea (adult) (pediatric) (principal)

== ENCOUNTER 2025-06-10 19:03 | Inpatient (IN) | payer MEDICAID, OTHER ==
[~2025-06-10] VITALS: Ht 170.2 cm; Wt 86.4 kg
[2025-06-10 20:10] LABS: PLATELET COUNT, AUTOMATED 188 10^3/uL (150-450)
[2025-06-10 20:32] LABS: AMPHETAMINES LEVEL URINE NEGATIVE (NEGATIVE); BARBITURATES URINE NEGATIVE (NEGATIVE); BENZODIAZEPINES URINE NEGATIVE (NEGATIVE); COCAINE METABOLITE URINE NEGATIVE (NEGATIVE)
[2025-06-10 20:33] LABS: METHADONE URINE NEGATIVE (NEGATIVE); OPIATES URINE NEGATIVE (NEGATIVE); PHENCYCLIDINE URINE NEGATIVE (NEGATIVE)
[2025-06-10 20:35] LABS: ETHYL ALCOHOL (ETHANOL) 0.004 % (0.000-0.010)
[2025-06-10 20:36] LABS: SALICYLATE LEVEL < 3.0 MG/DL (<30)
[2025-06-10 20:37] LABS: ALT/SGPT 11 U/L (7.0-40); AST/SGOT 15 U/L (<34); CALCIUM LEVEL 8.4 MG/DL (8.5-10.1); CARBON DIOXIDE LEVEL 26 MMOL/L (20-31); CHLORIDE LEVEL 108 MMOL/L (98-107); CREATININE FOR GFR 0.83 MG/DL (0.70-1.30); GLOMERULAR FILTRATION RATE > 90.0 (>60); POTASSIUM SERUM 4.2 MMOL/L (3.5-5.1); SODIUM LEVEL 143 MMOL/L (136-145)
[2025-06-10 20:46] LABS: CANNABINOIDS URINE POSITIVE (NEGATIVE)
[2025-06-10] MEDS ORDERED: MOM 30 ML SUSPENSION UDC PO PRN (21:40)
[2025-06-10] MEDS ORDERED: LORazepam 1 MG TAB PO PRN (21:40)
[2025-06-10] MEDS ORDERED: IBUPROFEN 400 MG TAB PO PRN (21:40)
[2025-06-10] MEDS ORDERED: HALOPERIDOL 5 MG TAB PO PRN (21:40)
[2025-06-10] MEDS ORDERED: ACETAMINOPHEN 325 MG TAB PO PRN (21:40)
[2025-06-10] MEDS ORDERED: MAALOX 30 ML SUSP *UDC PO PRN (21:40)
[2025-06-10 22:55] VITALS: BP 106/68; TEMP 97.3; O2SAT 99
[2025-06-11] MEDS ORDERED: IBUP80TA PO (02:17)
[2025-06-11] MEDS ORDERED: HOME MED LIST COMPLETE! XX SCH (02:25)
[2025-06-11 06:45] VITALS: BP 120/83; TEMP 97.4; O2SAT 98
[2025-06-11] MEDS: buPROPion **XL** 150 MG TABLET PO SCH (14:10)
[2025-06-11] MEDS: NICOTINE 14 MG/24 HR TRANSDERMAL TD SCH (14:12)
[2025-06-11 16:24] VITALS: BP 120/77; TEMP 97.1; O2SAT 99
[2025-06-12 06:44] VITALS: BP 121/82; TEMP 97.7; O2SAT 98
[2025-06-12 17:07] VITALS: BP 130/83; TEMP 97.1; O2SAT 98
[2025-06-12] MEDS: traZODone 50 MG TAB PO PRN (20:07)
[2025-06-13 06:31] VITALS: BP 123/60; TEMP 98.9; O2SAT 99
== END 2025-06-13 09:42 | disposition home or self-care (01) | DRG 750 ==
LOC: M ED 19:03 → M ED INP 21:38 → M PSY 22:44
PROVIDERS: ADMIT Psychiatry & Neurology Neurology; ATTEND Psychiatry & Neurology Neurology
DX: F25.0 Schizoaffective disorder, bipolar type (principal); R45.851 Suicidal ideations; F41.9 Anxiety disorder, unspecified; F12.20 Cannabis dependence, uncomplicated; Z56.0 Unemployment, unspecified; Z59.2 Discord with neighbors, lodgers and landlord; Z79.899 Other long term (current) drug therapy; G47.33 Obstructive sleep apnea (adult) (pediatric); M25.562 Pain in left knee; G89.29 Other chronic pain; F65.4 Pedophilia; F17.200 Nicotine dependence, unspecified, uncomplicated; Z81.3 Family history of other psychoactive substance abuse and dependence; Z59.89 Other problems related to housing and economic circumstances